=== PATIENT | female | born 1955 | race Caucasian/White ===

== ENCOUNTER → 2018-05-04 07:09 | Outpatient (CLI) | payer OTHER, SELFPAY ==
--- NOTE | 2018-05-04 07:15 | BI_ITS ---
MAMMOGRAPHY - BILATERAL SCREENING REASON FOR EXAM: Female, 62 years old. Routine annual screening examination. PERTINENT HISTORY: Non-contributory. TECHNIQUE: Digital bilateral breast radha (3D mammographic acquisition) in the CC and MLO projections. 2-D mediolateral oblique (MLO) and craniocaudad (CC) views of both breasts were obtained. CAD: Full Field Digital Mammography with Computer Added Detection was performed. COMPARISON: No comparison mammograms available at this time. If any prior films become available, an addendum to this report can be generated. FINDINGS: Breast Composition: There are scattered areas of fibroglandular density. There are no dominant masses or suspicious calcifications. Scattered diffuse bilateral microcalcifications more prominent in the left axillary region. Several of the calcifications are dermal in nature. No other significant abnormalities are identified. BI/SCREENING MAMM (CAD), BILAT IMPRESSION: Stable bilateral screening mammogram. Yearly follow-up mammogram recommended. (A) ASSESSMENT CATEGORY: BIRADS Category 2: Benign. A letter regarding these results will be sent to the patient by the facility within 30 days. Approximately 10% of breast cancers are not detected by mammography. A normal mammogram should not delay biopsy of a clinically suspicious abnormality. [id number] Electronically Signed: Jacques Min MD at 9:21 EST Tel [phone], Service support ,
--- OUTSIDE RECORDS SUMMARY | 2018-06-29 11:47 | XMS RPT_ITS ---
:1955 Author Organization [facility] Care Team Providers Name Role Phone Toribio Chapa Attending Unavailable Toribio Chapa Primary Care Unavailable Toribio Chapa Referring Unavailable PROBLEMS PROBLEMS No Problem Records FoundPROCEDURES PROCEDURES No Procedure Records FoundRESULTS RESULTS SCREENING MAMM (CAD), Observed: 05/04/2018 Status: F Source: [place] 7:15 AM [facility] [place] [facility] Imaging Services [address] [place] [address] SCREENING MAMM (CAD), BILAT MR#: [id number] Acct: [id number] Name: SWAPNIL MENJIVAR Rep #: [id number] : 1955 F 62 From: Jacques Min MD PCP: Toribio Chapa MD Status: REG CLI Study: SCREENING MAMM (CAD), BILAT Date of Exam: 05/04/18 Exam# [id number] Ordering Dr: Greg Chapa MD MAMMOGRAPHY - BILATERAL SCREENING REASON FOR EXAM: Female, 62 years old. Routine annual screening examination. PERTINENT HISTORY: Non-contributory. TECHNIQUE: Digital bilateral breast radha (3D mammographic acquisition) in the CC and MLO projections. 2-D mediolateral oblique (MLO) and craniocaudad (CC) views of both breasts were obtained. CAD: Full Field Digital Mammography with Computer Added Detection was performed. COMPARISON: No comparison mammograms available at this time. If any prior films become available, an addendum to this report can be generated. FINDINGS: Breast Composition: There are scattered areas of fibroglandular density. There are no dominant masses or suspicious calcifications. Scattered diffuse bilateral microcalcifications more prominent in the left axillary region. Several of the calcifications are dermal in nature. No other significant abnormalities are identified. BI/SCREENING MAMM (CAD), BILAT IMPRESSION: Stable bilateral screening mammogram. Yearly follow-up mammogram recommended. (A) ASSESSMENT CATEGORY: BIRADS Category 2: Benign. A letter regarding these results will be sent to the patient by the facility within 30 days. Approximately 10% of breast cancers are not detected by mammography. A normal mammogram should not delay biopsy of a clinically suspicious abnormality. 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 ALLERGIES ALLERGIES No Allergies Records FoundENCOUNTERS ENCOUNTERS ADMIT/DISCHARGE ACCOUNT ADMITTING ENCOUNTER LOCATION SOURCE NUMBER CLASS 05/04/2018 [id number] Ambulatory Gurwinder Lindsay[address] ing:OPBI Repository PAYERS PAYERS ENCOUNTER GUARANTOR PAYER SUBSCRIBER SOURCE 05/04/2018 [facility] [facility] Insurance:MEDICAL MILLERDOB: [address] [id number] [address]Tmr: Number: Repository [id number] (HP) Date:[id number] [address] [place] [id number]: 05/04/2018 [facility]:SELF PAY [facility] Number: Effective Repository Date:2018-03-24
== END ==
PROVIDERS: Family Provider Family Medicine; PCP Family Medicine; Referring Provider Family Medicine; Visit Provider Family Medicine
DX: Z12.31 Encounter for screening mammogram for malignant neoplasm of breast (principal)
CPT/HCPCS: 77063; 77067

== ENCOUNTER → 2019-01-19 05:59 | Outpatient (CLI) | payer MEDICARE, SELFPAY ==
--- NOTE | 2019-01-23 11:25 | STRESSREP_ITS ---
Stress Test Report Date: 01/23/2019 Procedure: Pharmacologic stress nuclear imaging study Indications: Chest pain Consent: Per the patient Procedure: The patient underwent pharmacologic (Regadenoson) evaluation with a peak heart rate of 94 beats per minute (60 %predicted maximal heart rate) and a peak blood pressure of 204/112 mmHg. The baseline ECG demonstrated normal sinus rhythm, no significant ST-T changes. EKG during lexiscan infusion revealed significant change from baseline. EKG post infusion revealed no significant change from baseline [There were no cardiac dysrhythmias pretest, during pharmacologic infusion, or recovery]. [There was no complaint of chest discomfort during pharmacologic infusion or recovery]. The examination was discontinued secondary to completion of protocol. Impression: 1. Lexiscan stress test test is negative for Lexiscan infusion induced EKG changes of ischemia. 2. Lexiscan stress test test is negative for Lexiscan infusion induced chest pain. 3. Results of the nuclear portion of the test is as below Myocardial perfusion imaging study: Technique: The patient was injected with 11.4 millicuries of technetium 99m Cardiolite and subsequently rest SPECT Cardiolite nuclear imaging was obtained in the horizontal long, vertical long, and short axis views. The patient underwent pharmacologic (Regadenoson) evaluation. Please see above for details. The patient was injected with 32.9 millicuries of technetium 99m Cardiolite and subsequently stress SPECT Cardiolite nuclear imaging was obtained in the horizontal long, vertical long, and short axis views. A gated Cardiolite study at peak stress was obtained. Interpretation: Rest and stress SPECT Cardiolite nuclear imaging status post realignment, normalization, and attenuation correction demonstrate overall normal myocardial radioisotope uptake. Gated images reveal no significant regional wall motion abnormalities. The reported LVEF is greater than 70 %. Impression: 1. There is [no evidence of significant ischemia or infarction]. 2. Estimated ejection fraction is greater than 70%. This note was generated with [employer] software. It may contain incorrect words, spelling, and punctuation that were not noted in checking the note before signing.
== END ==
PROVIDERS: Family Provider Family Medicine; PCP Family Medicine; Referring Provider Family Medicine; Visit Provider Family Medicine
DX: Z13.6 Encounter for screening for cardiovascular disorders (principal); I10 Essential (primary) hypertension; R07.9 Chest pain, unspecified
CPT/HCPCS: 78452; 93017; A9500; A4216; J2785

== ENCOUNTER → 2019-01-23 06:57 | Outpatient (CLI) | payer MEDICARE, SELFPAY ==
--- NOTE | 2019-01-23 07:12 | AAAS_ITS ---
Reason For Study: Screening Aorta Measurements Aorta Doppler Measurements Proximal aorta measures1.35 x 1.40cm. in cross- Peak systolic flow velocities within the proximal sectional axis. aorta measure 90.6 cm/sec. Proximal aorta measures1.42cm. in longitudinal Peak systolic flow velocities within the mid aorta axis. measure 101.5 cm/sec. Mid aorta measures1.37 x 1.34cm. in cross- Peak systolic flow velocities within the distal sectional axis. aorta measure 81.5 cm/sec. Mid aorta measures1.43cm. in longitudinal axis. Distal aorta measures1.37 x 1.40cm. in cross- sectional axis. Distal aorta measures1.36cm. in longitudinal axis. Left Iliac Artery Left iliac artery measures 0.91 x 0.95 cm. in the cross-sectional axis. Left iliac artery measures 0.94 cm. in the longitudinal axis. Peak systolic velocity in the left iliac artery measures 99.7 cm/sec. Right Iliac Artery Right iliac artery measures 0.89 x 0.90 cm. in the cross-sectional axis. Right iliac artery measures 0.93 cm. in the longitudinal axis. Peak systolic velocity in the right iliac artery measures 116.1 cm/sec. Procedure Aorta IVC Iliac vasculature or bypass grafts 22701. Exam performed in department. Interpretation Summary The intra-abdominal aorta is of normal caliber, without evidence of aneurysmal dilatation. The iliac arteries are also of normal size bilaterally. The intra-abdominal aorta and iliac arteries are patent, demonstrating pulsatile arterial flow and normal peak systolic velocities. Ordering Physician: Greg Chapa Referring Physician: Greg Chapa Performed By: Kirsten Diaz RVCharles
[2019-01-23 07:17] LABS: Absolute Neutrophil Count 4.3 X10^3/uL (2.0-7.7); Basophil# 0.03 X10^3/uL; Basophil% 0.4 % (0-1); Eosinophil# 0.13 X10^3/uL; Eosinophils% 1.9 % (0-5); Hematocrit 41.8 % (37-47); Hemoglobin 13.7 g/dL (12.0-15.0); Lymphocyte % 25.4 % (19-41); Mean Corp Hgb Conc 32.8 g/dL (32-36); Mean Corpuscular Hgb 31.4 pg (27.0-32.0); Mean Corpuscular Volume 95.7 fL (81-99); Monocyte# 0.46 X10^3/uL; Monocyte% 6.9 % (0-10); NRBC Flagged by Analyzer 0 % (0-5); Neutrophil # 4.33 X10^3/uL (2.7-7.7); Platelet Count 255 K/mm3 (150-450); RBC Distribution Width CV 12.8 % (11.6-14.6); RBC Distribution Width SD 45.1 fl (35.1-43.9); Red Blood Count 4.37 M/mm3 (4.2-5.4); White Blood Count 6.7 K/mm3 (4.4-11.0)
[2019-01-23 07:49] LABS: ALB/GLOB Ratio 1.2 RATIO (0.9-2.4); AST(SGOT) 20 U/L (15-37); Alanine Aminotransfer ALT/SGPT 20 U/L (13-56); Albumin, Serum 3.7 g/dL (3.2-5.0); Alkaline Phosphatase 118 U/L (45-117); Anion Gap 6 (5-15); BUN 16 mg/dL (7-18); BUN/Creat Ratio 16.8 RATIO (10-20); Calcium,Total 9.1 mg/dL (8.5-10.1); Chloride 109 mmol/L (98-107); Cholesterol 240 mg/dL (200); Creatinine, Serum 0.95 mg/dL (0.55-1.02); EST Glomerular Filtration Rate 63 mL/min (>60); Est Glom Filt Rate - Afr Amer 76 mL/min (>60); Globulin 3.2 g/dL (2.2-4.2); Glucose 91 mg/dL (74-106); High Density Lipoprotein 63 mg/dL; Magnesium 2.3 mg/dL (1.6-2.6); Potassium 4.1 mmol/L (3.5-5.1); Protein, Total 6.9 g/dL (6.4-8.2); Sodium Level 142 mmol/L (136-145); Thyroid Stim Hormone (TSH) 1.77 uIU/mL (0.358-3.74); Triglycerides 125 mg/dL; Very Low Density Lipoprotein 25 mg/dL (5-40)
[2019-01-23 07:58] LABS: Microalbumin:Creatinine Ratio 34.5 mg/g CRE (<30 mg/g CRE)
== END ==
PROVIDERS: Family Provider Family Medicine; PCP Family Medicine; Referring Provider Family Medicine; Visit Provider Family Medicine
DX: R07.9 Chest pain, unspecified (principal); I10 Essential (primary) hypertension; T67.5XXA Heat exhaustion, unspecified, initial encounter; Z13.6 Encounter for screening for cardiovascular disorders
CPT/HCPCS: 36415; 76706; 80053; 80061; 82043; 82570; 83735; 84443; 85025

== ENCOUNTER → 2019-02-15 13:53 | Outpatient (CLI) | payer MEDICARE, SELFPAY ==
[2019-02-06 10:42] VITALS: BMI 33.0
[2019-02-15 16:13] LABS: Anion Gap 7 (5-15); BUN 15 mg/dL (7-18); BUN/Creat Ratio 13.8 RATIO (10-20); Calcium,Total 8.9 mg/dL (8.5-10.1); Chloride 105 mmol/L (98-107); Creatinine, Serum 1.09 mg/dL (0.55-1.02); EST Glomerular Filtration Rate 54 mL/min (>60); Est Glom Filt Rate - Afr Amer 65 mL/min (>60); Glucose 149 mg/dL (74-106); Potassium 3.7 mmol/L (3.5-5.1); Sodium Level 140 mmol/L (136-145)
== END ==
PROVIDERS: Family Provider Family Medicine; PCP Family Medicine; Referring Provider Family Medicine; Visit Provider Family Medicine
DX: I10 Essential (primary) hypertension (principal)
CPT/HCPCS: 36415; 80048

== ENCOUNTER → 2020-02-14 08:05 | Outpatient (CLI) | payer MEDICARE, SELFPAY ==
[2019-02-06 10:42] VITALS: BMI 33.0
[2020-02-14 10:10] LABS: Anion Gap 5 (5-15); BUN 19 mg/dL (7-18); BUN/Creat Ratio 22.2 RATIO (10-20); Calcium,Total 8.6 mg/dL (8.5-10.1); Chloride 107 mmol/L (98-107); Cholesterol 243 mg/dL (200); Creatinine, Serum 0.86 mg/dL (0.55-1.02); EST Glomerular Filtration Rate 71 mL/min (>60); Est Glom Filt Rate - Afr Amer 85 mL/min (>60); Glucose 96 mg/dL (74-106); High Density Lipoprotein 71 mg/dL; Potassium 3.7 mmol/L (3.5-5.1); Sodium Level 139 mmol/L (136-145); Triglycerides 106 mg/dL; Very Low Density Lipoprotein 21 mg/dL (5-40)
== END ==
PROVIDERS: PCP Family Medicine; Referring Provider Family Medicine; Visit Provider Family Medicine
DX: I10 Essential (primary) hypertension (principal); E78.5 Hyperlipidemia, unspecified
CPT/HCPCS: 36415; 80048; 80061

== ENCOUNTER → 2020-04-03 10:19 | Outpatient (CLI) | payer MEDICARE, SELFPAY ==
[2019-02-06 10:42] VITALS: BMI 33.0
--- NOTE | 2020-04-03 10:21 | BI_ITS ---
MAMMOGRAPHY - BILATERAL SCREENING REASON FOR EXAM: Female, 64 years old. Routine annual screening examination. PERTINENT HISTORY: Non-contributory. Remote right excisional breast biopsy. TECHNIQUE: Digital bilateral breast rasheed (3D mammographic acquisition) in the CC and MLO projections. 2-D mediolateral oblique (MLO) and craniocaudad (CC) views of both breasts were obtained. CAD: Full Field Digital Mammography with Computer Added Detection was performed. COMPARISON: Comparison is made with prior study dated 05/04/2018. FINDINGS: Breast Composition: There are scattered areas of fibroglandular density. There are no dominant masses or suspicious calcifications. Once again, there is evidence of scattered diffuse bilateral microcalcifications more prominent in the left axillary region. I suspect the majority of the calcifications to be dermal in nature. No other significant abnormalities are identified. There has been no significant change since the prior study. BI/SCREEN MAMM (CAD) W/RASHEED BILAT IMPRESSION: Stable bilateral screening mammogram. Yearly follow-up mammogram recommended. (A) ASSESSMENT CATEGORY: BIRADS Category 2: Benign. A letter regarding these results will be sent to the patient by the facility within 30 days. Approximately 10% of breast cancers are not detected by mammography. A normal mammogram should not delay biopsy of a clinically suspicious abnormality. [id number] Electronically Signed: Jacques Min, at 12:22 EDT , Service support ,
--- NOTE | 2020-04-03 10:25 | BD_ITS ---
STUDY: DUAL ENERGY X-RAY ABSORPTIOMETRY / DXA REASON FOR EXAM: Female, 64 years old. 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 COMPARISON: None. FINDINGS: Lumbar Spine (L1-L4): g/cm2 (0.899) / T-score (-2.3) / Z-score (-0.7) Findings are suggestive of osteopenia with a high fracture risk. Left Femur Total: g/cm2 (0.900) / T-score (-0.9) / Z-score (0.4) Left Femoral Neck: g/cm2 (0.864) / T-score (-1.3) / Z-score (0.3) Right Femur Total: g/cm2 (0.910) / T-score (-0.8) / Z-score (0.5) Right Femoral Neck: g/cm2 (0.872) / T-score (-1.2) / Z-score (0.3) BD/Dexa Bone Density Study IMPRESSION: The patient is considered osteopenic as outlined below according to World Michael Organization (WHO) criteria with a high fracture risk. Reference Information: The T-score is the number of standard deviations above or below the standard which is normal for young adults at their peak bone mineral density. The World Health Organization (WHO) interprets the T-scores as follows: Above -1 Normal bone density Between -1 and -2.5 Osteopenia Equal to / or below -2.5 Osteoporosis As a practical clinical guideline, osteopenia may be graded as follows: Mild -1 through -1.5 Moderate -1.6 through -2.0 Severe -2.1 through -2.4 The Z-score is the number of standard deviations above or below age-matched controls. A Z-score of less than -1.5 would be considered abnormal. References: 1. NIH Osteoporosis and Related Bone Diseases www osteo.org 2. International Society for Clinical Densitometry www iscd.org 3. National Osteoporosis Foundation www nof.org Electronically Signed: Jacques Min, at 15:54 EDT , Service support ,
== END ==
PROVIDERS: PCP Family Medicine; Referring Provider Family Medicine; Visit Provider Family Medicine
DX: Z13.820 Encounter for screening for osteoporosis (principal); Z78.0 Asymptomatic menopausal state; Z12.31 Encounter for screening mammogram for malignant neoplasm of breast
CPT/HCPCS: 77063; 77067; 77080

== ENCOUNTER → 2021-02-26 08:24 | Outpatient (CLI) | payer MEDICARE, SELFPAY ==
[2021-02-26 10:28] LABS: Anion Gap 6 (5-15); BUN 17 mg/dL (7-18); BUN/Creat Ratio 22.8 RATIO (10-20); Calcium,Total 8.8 mg/dL (8.5-10.1); Chloride 107 mmol/L (98-107); Cholesterol 237 mg/dL (200); Creatinine, Serum 0.75 mg/dL (0.55-1.02); EST Glomerular Filtration Rate 82 mL/min (>60); Est Glom Filt Rate - Afr Amer 100 mL/min (>60); Glucose 100 mg/dL (74-106); High Density Lipoprotein 71 mg/dL; Potassium 3.5 mmol/L (3.5-5.1); Sodium Level 140 mmol/L (136-145); Triglycerides 101 mg/dL; Very Low Density Lipoprotein 20 mg/dL (5-40)
[2021-02-26 11:05] LABS: Hepatitis C Antibody Non-Reactive (Nonreactive)
== END ==
PROVIDERS: PCP Family Medicine; Referring Provider Family Medicine; Visit Provider Family Medicine
DX: I10 Essential (primary) hypertension (principal)
CPT/HCPCS: 36415; 80048; 80061; 86803

== ENCOUNTER 2021-03-10 16:06 | Emergency (ER) | payer MEDICARE, SELFPAY ==
[2021-03-10] VITALS (8 sets, daily range): BP systolic 120–145; BP diastolic 71–97; PULSE 68–124; RESP 14–25; TEMP 37.8; O2SAT 92–97; BMI 32.9
--- NOTE | 2021-03-10 16:23 | EKG12_ITS ---
Test Reason : SYNCOPE Blood Pressure : / mmHG Vent. Rate : 088 BPM Atrial Rate : 088 BPM P-R Int : 130 ms QRS Dur : 080 ms QT Int : 350 ms P-R-T Axes : 028 -29 -02 degrees QTc Int : 423 ms Normal sinus rhythm Anterior infarct , age undetermined , cannot be excluded Nonspecific T wave abnormality Abnormal ECG Confirmed by YANIRA QUINN, CAMILLE ([id number]), technical editor DL MARTINO ([id number]) on 03/11/2021 8:40:48 AM Referred By: LENNOX Confirmed By:CAMILLE DOYLE MD
[2021-03-10 16:48] LABS: Absolute Lymphocyte Count 0.49 X10^3/uL (0.83-4.51); Absolute Neutrophil Count 4.2 X10^3/uL (2.0-7.7); Basophil# 0.01 X10^3/uL; Basophil% 0.2 % (0-1); Hematocrit 43.3 % (37-47); Hemoglobin 14.7 g/dL (12.0-15.0); Lymphocyte # 0.49 X10^3/ul (0.83-4.51); Lymphocyte % 9.5 % (19-41); Mean Corp Hgb Conc 33.9 g/dL (32-36); Mean Corpuscular Hgb 31.6 pg (27.0-32.0); Mean Corpuscular Volume 93.1 fL (81-99); Monocyte% 7.8 % (0-10); NRBC Flagged by Analyzer 0 % (0-5); Neutrophil # 4.24 X10^3/uL (2.7-7.7); Neutrophil % 82.3 % (47-70); POSITIVE DIFFERENTIAL YES; Platelet Count 160 K/mm3 (150-450); RBC Distribution Width CV 12.5 % (11.6-14.6); RBC Distribution Width SD 42.9 fl (35.1-43.9); Red Blood Count 4.65 M/mm3 (4.2-5.4); White Blood Count 5.2 K/mm3 (4.4-11.0)
[2021-03-10 16:49] LABS: Differential Indicated SCAN CRITERIA MET
[2021-03-10 17:03] LABS: Anion Gap 9 (5-15); BUN 19 mg/dL (7-18); BUN/Creat Ratio 17.3 RATIO (10-20); Calcium,Total 8.6 mg/dL (8.5-10.1); Chloride 95 mmol/L (98-107); EST Glomerular Filtration Rate 53 mL/min (>60); Est Glom Filt Rate - Afr Amer 64 mL/min (>60); Estimated Creatinine Clearance 39.25 ml/min; Glucose 124 mg/dL (74-106); Potassium 3.3 mmol/L (3.5-5.1); Sodium Level 130 mmol/L (136-145)
[2021-03-10 17:33] LABS: Platelet Estimate ADEQUATE (ADEQ); Red Cell Morphology NORM C+C NORMAL (NORM C&C)
--- NOTE | 2021-03-10 19:35 | RAD_ITS ---
INDICATION: covid EXAMINATION/TECHNIQUE: X-RAY - XR Chest 1 View COMPARISON: None. FINDINGS: LINES/DEVICES: None. LUNGS: Asymmetric elevation right hemidiaphragm appears to be associated with some mild overlying atelectasis. Lungs otherwise clear with no abnormal interstitial pattern, airspace opacity, pleural effusion or pneumothorax. MEDIASTINUM AND CARDIOVASCULAR STRUCTURES: Normal size and contour of the cardiomediastinal silhouette. No evidence of pulmonary vascular congestion. BONES AND SOFT TISSUES: Asymmetric degenerative changes right glenohumeral joint compared to the left. RAD/Chest 1 View (Portable) IMPRESSION: 1. No radiographic evidence of acute cardiopulmonary disease. Electronically Signed: Crow Fish DO at 20:54 EDT Tel , Service support ,
--- NOTE | 2021-03-10 19:36 | EDS_ITS ---
HPI History of Present Illness Chief Complaint: Syncope Detail of Chief Complaint: URI symptoms Informant: patient and family Onset/Context/Timing Onset: Days Context: Gradual Onset Timing: Intermittent Current Severity: Mild Maximum Severity: Mild Narrative Narrative: Six 5-year-old female history of hypertension. Sees the last 5 days since she has had headaches generalized weakness nausea without any significant vomiting. Denies diarrhea. Denies fever. States she feels so weak she just passes out usually only last seconds she denies any injuries with these episodes. She denies any chest pain or significant shortness of breath. She states she is so weak. Prior similar symptoms: No Recent Illness/Hospitalization: No PFSH PFSH Medical History Chronic neck and back pain Frequent headaches Hypertension Home Medications lisinopril 40 mg tablet 40 mg PO DAILY 02/06/19 [History Last Taken Unknown] water pill PO 02/06/19 [History Last Taken Unknown] dexamethasone [Decadron] 6 mg PO DAILY 10 Days #10 tab 03/10/21 [Rx Last Taken Unknown] dexamethasone [Decadron] 6 mg PO DAILY 10 Days #10 tab 03/10/21 [Rx Last Taken Unknown] hydrochlorothiazide 25 mg PO DAILY 03/10/21 [History Last Taken Unknown] Allergy/AdvReac Type Severity Reaction Status Date / Time No Known Allergies Allergy Verified 03/10/21 16:07 Family History Other Diabetes Heart disease Hypertension Surgical History History of hysterectomy Social History Smoking Status: Never smoker alcohol intake: never ROS ROS ED ROS Narrative Cough. Weakness. Review of Systems ROS Unobtainable: Denies due to encephalopathy Constitutional Constitutional ED: Denies chills or fever(s) Eyes Eyes: Denies change in vision ENT ENT ED: Denies ear pain Cardiovascular Cardiovascular: Denies chest pain Respiratory/Chest Respiratory/Chest: Reports cough; Denies dyspnea Gastrointestinal Gastrointestinal: Reports nausea; Denies abdominal pain or diarrhea Genitourinary Genitourinary ED: Denies dysuria Musculoskeletal Musculoskeletal: Denies myalgias Integumentary Denies rash Neurologic Neurologic: Reports headache(s) Psychiatric Psychiatric: Denies depression Endocrine Endocrinology: Denies polyuria Allergic/Immunologic Allergic/Immunologic ED: Denies urticaria EXAM Physical Exam Narrative Exam Narrative: Six 5-year-old female no acute distress. Vital signs are stable she has a low-grade fever of 100. She does not look septic or toxic. Pulse ox 94% on room air no signs hypoxia. HEENT exam unremarkable. Moist remembers. Neck nontender no JVD. Lungs clear to auscultation bilaterally. Heart regular rhythm rate about 90 no murmur. Chest nontender. Abdomen soft nontender. Moving all 4 extremities. Calves nontender without edema or cords. Neurologically she is awake and alert with no focal motor deficits. Const Vital Signs: 03/10/21 16:07 03/10/21 18:04 03/10/21 18:06 Temperature 100.0 F H Temperature Source Temporal Pulse Rate 91 81 Pulse Rate [Lying] Pulse Rate [Sitting] Pulse Rate [Standing] Respiratory Rate 18 14 Respiratory Effort Normal Non-Labored Blood Pressure 120/71 132/84 H Blood Pressure [Lying] Blood Pressure [Sitting] Blood Pressure [Standing] Blood Pressure Mean 87 100 Blood Pressure Mean [Lying] Blood Pressure Mean [Sitting] Blood Pressure Mean [Standing] Pulse Ox 94 94 Oxygen Delivery Method Room Air Room Air Oxygen Flow Rate (L/min) 03/10/21 18:08 03/10/21 20:25 03/10/21 20:49 Temperature Temperature Source Pulse Rate 70 Pulse Rate [Lying] 124 H Pulse Rate [Sitting] 71 Pulse Rate [Standing] 81 Respiratory Rate 21 H Respiratory Effort Blood Pressure 126/74 H Blood Pressure [Lying] 143/97 H Blood Pressure [Sitting] 145/75 H Blood Pressure [Standing] 144/87 H Blood Pressure Mean 91 Blood Pressure Mean [Lying] 112 Blood Pressure Mean [Sitting] 98 Blood Pressure Mean [Standing] 106 Pulse Ox 93 92 93 Oxygen Delivery Method Room Air Nasal Cannula Nasal Cannula Oxygen Flow Rate (L/min) 2 03/10/21 20:55 03/10/21 22:07 03/10/21 22:25 Temperature Temperature Source Pulse Rate 68 73 Pulse Rate [Lying] Pulse Rate [Sitting] Pulse Rate [Standing] Respiratory Rate 25 H 16 Respiratory Effort Blood Pressure 131/75 H 131/75 H Blood Pressure [Lying] Blood Pressure [Sitting] Blood Pressure [Standing] Blood Pressure Mean 93 Blood Pressure Mean [Lying] Blood Pressure Mean [Sitting] Blood Pressure Mean [Standing] Pulse Ox 97 94 95 Oxygen Delivery Method Nasal Cannula Oxygen Flow Rate (L/min) 2 Positive well nourished and well developed; Negative for cachectic, contractures or unkempt General Appearance ED: well developed and NAD; Negative for unkempt, cachectic, contractures, cyanotic, diaphoretic or pallor Nutritional Appearance: Negative for cachectic HEENT Reports moist mucous membranes Negative for trauma or tenderness Eyes PERRL and EOMs intact bilaterally Neck no lymphadenopathy, supple and no JVD General: Negative for tenderness Chest Wall inspection of chest normal and palpation of chest normal Resp normal respiratory effort and clear to auscultation bilaterally Effort and Inspection: Negative for pain with movement Auscultation: Negative for rales, rhonchi or wheezes Cardio regular rate, regular rhythm, S1 normal heart sound, S2 normal heart sound and no murmurs GI normal to inspection, nondistended, normoactive bowel sounds, non-tender, non- distended and no masses Auscultation: normoactive bowel sounds Palpation: soft; Negative for tender or guarding Back/Spine no CVA tenderness General Back: Negative for CVA tenderness Extremity normal to inspection General Extremety ED: Negative for edema or tenderness General Extremity: Negative for edema Neuro oriented x3 and CN's II-XII intact bilaterally Sensorium / Orientation: alert; Negative for orientation impaired, lethargic or stuporous Motor Exam: strength 5/5 throughout Psych mental status grossly normal Appearance: Negative for unkempt Skin no rashes or lesions noted, no wounds and No skin turgor normal General Skin Exam: Negative for jaundice or pallor MDM MDM MDM Narrative Medical decision making narrative: 65-year-old female generalized weakness with syncopal episodes with URI symptoms. Treated with normal saline x1 L and Zofran for nausea. Screening labs and x-ray being obtained. Repeat exam patient is doing well at 10 PM skeletal being discharged home. I think her symptoms are secondary to kelechi Covid and she would be day 5. She will be referred to monoclonal antibody therapy. She will be started on Decadron. Lab Data Attestation: I reviewed the patient's lab results. Lab results narrative: CBC shows normal white count 5. Hemoglobin 14. Electrolytes sodium 130. Potassium 3.3. Gap 9 BUN 19 creatinine 1.1. Glucose 124. Rapid Covid antigen positive. Troponin normal 13. Labs: Laboratory Results - last 24 hr 03/10/21 03/10/21 03/10/21 16:40 16:40 16:40 WBC 5.2 RBC 4.65 Hgb 14.7 Hct 43.3 MCV 93.1 MCH 31.6 MCHC 33.9 RDW Std Deviation 42.9 RDW Coeff of Sheryl 12.5 Plt Count 160 MPV 10.0 Immature Gran % (Auto) 0.200 Neut % (Auto) 82.3 H Lymph % (Auto) 9.5 L Hamblen % (Auto) 7.8 Eos % (Auto) 0.0 Baso % (Auto) 0.2 Absolute Neuts (auto) 4.2 Absolute Lymphs (auto) 0.49 L Nucleated RBC % 0 Differential Comment Platelet Estimate ADEQUATE RBC Morphology NORM C+C Sodium 130 L Potassium 3.3 L Chloride 95 L Carbon Dioxide 26.0 Anion Gap 9 BUN 19 H Creatinine 1.10 H Estim Creat Clear Calc 39.25 Est GFR (MDRD) Af Amer 64 Est GFR (MDRD) Non-Af 53 L BUN/Creatinine Ratio 17.3 Glucose 124 H Calcium 8.6 Troponin I High Sens 13 Radiography Chest X-Ray - ED: 1 View, Read by ED Physician, Read by Radiologist, Normal, Heart, Lungs, Mediastinum, Bony Structures, No Acute Disease and Chronic Changes Diagnostic Testing: Radiology Impression Chest X-Ray 03/10/21 19:35 IMPRESSION: 1. No radiographic evidence of acute cardiopulmonary disease. Electronically Signed: Crow Fish DO at 20:54 EDT Tel , Service support , Rhythm Strip Rhythm Strip: Sinus Rhythm Rate: 88 Ectopy: None EKG Initial EKG: Attestation: I personally reviewed and interpreted this EKG as follows: Interpretation: Sinus Rhythm and No Acute Injury Pattern Comments: Normal sinus rhythm rate 88 no acute signs of MN or ischemia. Discharge Plan Triage Chief Complaint: Syncope ED Provider: Vinayak Mojica Dx/Rx/DC Orders Clinical Impression: COVID, Weakness Instructions: Human Coronaviruses Prescriptions: New dexamethasone [Decadron] 6 mg tablet 6 mg PO DAILY 10 Days Qty: 10 RF: 0 dexamethasone [Decadron] 6 mg tablet 6 mg PO DAILY 10 Days Qty: 10 RF: 0 No Action lisinopril 40 mg tablet 40 mg PO DAILY RF: 0 water pill PO RF: 0 hydrochlorothiazide 25 mg tablet 25 mg PO DAILY RF: 0 Other Ambulatory Orders: COVID Outpatient Monoclonal Antibody Referral (Routine) Timeframe: 1 Day Facility: [facility] - Location: [facility] Ordered By: Dr. Vinayak Mojica Primary Care Provider: Greg Chapa Referrals: Greg Chapa MD [Primary Care Provider] - 1 Week if not improving Activity Restrictions/Additional Instructions: Plenty of fluids and rest. The monoclonal antibody center should call you tomorrow to discuss that treatment option. Decadron daily for the at least the next 7 days. Hold your blood pressure medication if your pressure is running below 130 systolic. The higher number. Follow-up with your doctor if not improving return if feeling a lot worse. Disposition Disposition: Home, Self Care Discharge Date/Time: 03/10/21 22:31
[2021-03-10] MEDS: Ondansetron 4 MG/2 ML Vial IV (19:40)
[2021-03-10] MEDS: 0.9% Normal Saline 1,000 ML 999 ML IV (19:40)
[2021-03-10 20:07] LABS: Troponin-I HS 13 pg/mL (3.0-54.0)
[2021-03-10] MEDS: dexAMETHasone 4 MG Tablet 6 MG PO (22:24)
== END 2021-03-10 22:31 | disposition home or self-care (01) ==
PROVIDERS: Emergency Provider Emergency Medicine; PCP Family Medicine
DX: U07.1 COVID-19 (principal); R53.1 Weakness; I10 Essential (primary) hypertension; Z79.899 Other long term (current) drug therapy
CPT/HCPCS: 71045; 80048; 84484; 85025; 87426; 93005; 96374; 99284; J7030; J2405

== ENCOUNTER 2021-03-11 16:07 | Outpatient (CLI) | payer MEDICARE, SELFPAY ==
[2021-03-11] MEDS: 0.9% Saline Lock 10 ML Syringe IV (16:25)
[2021-03-11 16:27] VITALS: BP 143/83; PULSE 71; RESP 16; TEMP 37.1; O2SAT 94; BMI 32.9
[2021-03-11 17:14] VITALS: BP 131/72; PULSE 66; RESP 16; TEMP 36.6; O2SAT 96
[2021-03-11 18:14] VITALS: BP 134/76; PULSE 66; RESP 16; TEMP 36.7; O2SAT 95
== END 2021-03-11 18:22 | disposition home or self-care (01) ==
LOC: MS3OUT 16:07 → MS3 16:08
PROVIDERS: PCP Family Medicine; Referring Provider Nurse Practitioner Adult Health; Visit Provider Nurse Practitioner Adult Health
DX: Z23 Encounter for immunization (principal); U07.1 COVID-19
CPT/HCPCS: J7050; M0243; A4216; Q0244

== ENCOUNTER 2021-07-15 08:14 | Day surgery (SDC) | payer MEDICARE, SELFPAY ==
[2021-07-15 08:35] VITALS: BP 146/85; PULSE 72; RESP 18; TEMP 36.2; O2SAT 100; BMI 34.3
[2021-07-15] MEDS: Lactated Ringers 1,000 ML 15 ML IV (08:50)
--- NOTE | 2021-07-15 09:04 | HP.PCM_ITS ---
HPI - General HPI Narrative SWAPNIL MENJIVAR, is a 65 F who presents for screening colonoscopy. The patient's last colonoscopy was 10 years ago and there were polyps present. Patient denies any abdominal pain or blood in her stool. Patient denies any family history of colon cancer. [facility] Medical History (Updated 07/08/21 @ 11:17 by Khalida Garcia) Arthritis Back pain Chronic neck and back pain Frequent headaches Heartburn Hypertension Migraine headache Non-smoker Restless legs Wears glasses Home Medications lisinopril 40 mg tablet 40 mg PO DAILY 02/06/19 [History Last Taken 07/15/21 05:00] hydrochlorothiazide 25 mg PO DAILY 03/10/21 [History Last Taken Unknown] Allergy/AdvReac Type Severity Reaction Status Date / Time influenza virus vaccine ts AdvReac Swelling Verified 07/15/21 08:33 [id number] (36 mos,up) [From Fluarix] Family History Other Diabetes Heart disease Hypertension Surgical History (Updated 07/08/21 @ 11:13 by Khalida Garcia) History of hysterectomy History of lymph node excision History of repair of right rotator cuff Social History Smoking Status: Never smoker alcohol intake: never Past Medical/Surgical History Planned Operation Planned Operative Procedure/s: COLONOSCOPY Previous Hospitalizations/Surgeries HX Hospitalizations: No HX of Surgeries: hysterectomy lymph node removal from neck rotator cuff surgery Any Problems With Anesthesia: No You/Your Family Experience Fever (Hyperthermia) With Anes: No Cholinesterase deficiency: No Cardiovascular Hx Hypertension: Yes Respiratory Hx Sleep Apnea: No Hx Respiratory Tract Infection/Cold (presently): No Do You Snore Loudly (louder than talking or can be heard): No Do You Often Feel Tired/ Fatigued/ Sleepy Dring Daytime?: No Has Anyone Observed You Stop Breathing During Sleep?: No Result (for STOP score): Negative Smoking Status: Never smoker Neurological Hx Seizures: No Does patient have nerve stimulator: No Reproduction : No Genitourinary Hx Renal Disease: No Endocrine Hx Diabetes: No Miscellaneous Hx Cancer: No Recent Exposure to Contagious Disease: No Allergies influenza virus vaccine ts [id number] (36 mos,up) [From Fluarix] Adverse Reaction (Verified 07/15/21 08:33) Swelling Discharge Is Pt Admitted From a Detention, or a Alf: No Who Could Help: DAUGHTER After D/C, Where Do you Plan to Go: Return Home Vital Signs Vital Signs Vital Signs: 07/15/21 08:34 07/15/21 08:35 Temperature 97.1 F L Temperature Source Temporal Pulse Rate 72 Respiratory Rate 18 Respiratory Pattern Normal Blood Pressure 146/85 H Blood Pressure Mean 105 Blood Pressure Source Monitor Blood Pressure Position Semi-Fowlers Blood Pressure Location Left Arm Pulse Ox 100 Oxygen Delivery Method Room Air Weight Weight: 187 lb 12.8 oz Body Mass Index (BMI) 34.3 Physical Exam Const alert and oriented x3 Resp normal respiratory effort and normal air movement Cardio regular rate and regular rhythm GI soft to palpation, non-tender and non-distended Assessment & Plan Assessment/Plan (1) Encounter for screening for malignant neoplasm of colon: PLAN: I explained endoscopy in detail to the patient. I explained the risks including but not limited to stroke or heart attack with anesthesia, perforation of the GI tract, bleeding, infection. I explained that any of these could necessitate further emergency surgery. The patient understands and all questions were answered sufficiently. The patient wishes to proceed with procedure. Amanuel Mckeon MD Pager: [facility] [address] [place] [address] [address] [place] [address] Office: Surgery Risks - Colonoscopy Risks Include but are not Limited To: Risks include but are not limited to: Bleeding, perforation requiring further surgery, inability to complete colonoscopy requiring barium enema.
--- NOTE | 2021-07-15 09:30 | COLBX_PTH ---
PATIENT: SWAPNIL MENJIVAR LOC: EN U#:[id number] AGE/SX: 65/F ROOM: RE07/15/[address]: Dr. Amanuel Mckeon MD : 1955 BED: DIS: 07/15/2021 SPEC #: [id number] RECD: 07/15/21 10:43 STATUS: GIANCARLO LINETTE #: [id number] JAYA: 07/15/21 09:[address]: Amnauel Mckeon DEPT: SURGICAL PATHOLOGY RECD BY: Dorys Cortes ENTERED: 07/15/21 11:59 SP TYPE: COLON BX OTHR DR: Dr. Toribio Chapa MD Tissues: Sigmoid colon biopsy Procedures: Surgery Specimen Level IV HEADER OPERATION: Colonoscopy ? open access (MAC) polypectomy PRE-OP DIAGNOSIS: Screening TISSUE SUBMITTED: Sigmoid polyp MICROSCOPIC DIAGNOSIS Sigmoid polyp, polypectomy: Fragments of tubular adenoma. SJ:louis 07/16/2021 MICROSCOPIC DESCRIPTION Slides are reviewed. GROSS DESCRIPTION Received in fixative is one container labeled with the patient's name and designated sigmoid polyp. The specimen consists of two irregular fragments of light mane soft tissue that in aggregate measure 0.6 x 0.4 x 0.2 cm. The specimen is totally submitted in one cassette. / SJ:louis 07/15/2021 TC:1 CPT: 96557
--- NOTE | 2021-07-15 09:53 | OP.COLON_ITS ---
Patient Name: Tiki Manley Procedure Date: 07/15/2021 9:35 AM Date of : 1955 Age: 65 Procedure: Colonoscopy Indications: Screening for colorectal malignant neoplasm Providers: Amanuel Mckeon MD Referring MD: Amanuel Mckeon MD Medicines: Monitored Anesthesia Care Patient Profile: This is a 65 year old female. Refer to note in patient chart for documentation of history and physical. Last Colonoscopy: 10 years ago. Complications: No immediate complications. Procedure: Pre-Anesthesia Assessment: - Prior to the procedure, a History and Physical was performed, and patient medications and allergies were reviewed. The patient's tolerance of previous anesthesia was also reviewed. The risks and benefits of the procedure and the sedation options and risks were discussed with the patient. All questions were answered, and informed consent was obtained. Prior Anticoagulants: The patient has taken no previous anticoagulant or antiplatelet agents. After reviewing the risks and benefits, the patient was deemed in satisfactory condition to undergo the procedure. After I obtained informed consent, the scope was passed under direct vision. Throughout the procedure, the patient's blood pressure, pulse, and oxygen saturations were monitored continuously. The pediatric colonoscope was introduced through the anus and advanced to the cecum, identified by appendiceal orifice and ileocecal valve. The colonoscopy was performed without difficulty. The patient tolerated the procedure well. The quality of the bowel preparation was good. Scope In: 9:39:34 AM Scope Withdrawal Time 0 hours 8 minutes 6 seconds Scope Out: 9:50:05 AM Total Procedure Duration Time 0 hours 10 minutes 31 seconds Findings: A polyp was found in the sigmoid colon. The polyp was removed with a hot snare. Resection and retrieval were complete. The entire examined colon appeared normal on direct and retroflexion views. Impression: - One polyp in the sigmoid colon, removed with a hot snare. Resected and retrieved. - The entire examined colon is normal on direct and retroflexion views. Recommendation: - Discharge patient to home. - Resume previous diet. - Continue present medications. - Await pathology results. - Repeat colonoscopy in 5 years for surveillance. Procedure Code(s): --- Professional --- 12142, 33, Colonoscopy, flexible; with removal of tumor(s), polyp(s), or other lesion(s) by snare technique Diagnosis Code(s): --- Professional --- Z12.11, Encounter for screening for malignant neoplasm of colon D12.5, Benign neoplasm of sigmoid colon CPT copyright 2017 [employer]. All rights reserved. The codes documented in this report are preliminary and upon medical record coder review may be revised to meet current compliance requirements. Amanuel Mckeon MD 07/15/2021 9:53:06 AM This report has been signed electronically. Number of Addenda: 0 Note Initiated On: 07/15/2021 9:35 AM
--- NOTE | 2021-07-15 09:54 | OP.CCLET_ITS ---
07/15/2021 Greg Chapa [address] [place] [address] Re : Colonoscopy procedure for Tiki Manley Dear Dr. Chapa This procedure was performed on Thursday, July 15, 2021. My impressions and recommendations are as follows: Impressions : - One polyp in the sigmoid colon, removed with a hot snare. Resected and retrieved. - The entire examined colon is normal on direct and retroflexion views. Recommendations : - Discharge patient to home. - Resume previous diet. - Continue present medications. - Await pathology results. - Repeat colonoscopy in 5 years for surveillance. My findings are described in the full procedure note, which is enclosed. If I can be of further assistance, please feel free to contact me at Doctor phone number(s): , Work: . Sincerely, Amanuel Mckeon MD 07/15/2021 9:53:06 AM This report has been signed electronically.
[2021-07-15 09:55] VITALS: BP 104/55; BP 146/85; PULSE 65; RESP 16; TEMP 36.7; O2SAT 95
[2021-07-15 10:00] VITALS: BP 108/55; BP 146/85; PULSE 63; RESP 16; O2SAT 95
[2021-07-15 10:05] VITALS: BP 109/55; BP 146/85; PULSE 52; RESP 16; O2SAT 96
[2021-07-15 10:10] VITALS: BP 127/72; BP 146/85; PULSE 57; RESP 16; TEMP 36.3; O2SAT 96
[2021-07-15 10:30] VITALS: BP 146/85
== END 2021-07-15 23:59 | disposition home or self-care (01) ==
LOC: EN 08:16 → AC 08:19
PROVIDERS: PCP Family Medicine; Referring Provider Family Medicine; Visit Provider Surgery
PROC: 0DJD8ZZ Inspection of Lower Intestinal Tract, Via Natural or Artificial Opening Endoscopic (ICD-10-PCS; CPT 45378; principal; 2021-07-15 09:25)
DX: Z12.11 Encounter for screening for malignant neoplasm of colon (principal); D12.5 Benign neoplasm of sigmoid colon; I10 Essential (primary) hypertension; M19.90 Unspecified osteoarthritis, unspecified site; Z79.899 Other long term (current) drug therapy; Z86.010 Personal history of colon polyps; Z86.16 Personal history of COVID-19
CPT/HCPCS: 45385; 87426; 88305; C9803; J7120; J2405

== ENCOUNTER 2021-09-23 09:28 | Outpatient (CLI) | payer MEDICARE, SELFPAY ==
[2021-09-23 12:35] LABS: Anion Gap 7 (5-15); BUN 25 mg/dL (7-18); BUN/Creat Ratio 29.1 RATIO (10-20); Calcium,Total 9.3 mg/dL (8.5-10.1); Chloride 104 mmol/L (98-107); Cholesterol 278 mg/dL (200); Creatinine, Serum 0.86 mg/dL (0.55-1.02); EST Glomerular Filtration Rate 70 mL/min (>60); Est Glom Filt Rate - Afr Amer 84 mL/min (>60); Glucose 93 mg/dL (74-106); High Density Lipoprotein 72 mg/dL; Sodium Level 137 mmol/L (136-145); Triglycerides 164 mg/dL; Very Low Density Lipoprotein 33 mg/dL (5-40)
== END 2021-09-23 23:59 | disposition home or self-care (01) ==
LOC: MFPLAB 09:29
PROVIDERS: PCP Family Medicine; Visit Provider Family Medicine
DX: I10 Essential (primary) hypertension (principal)
CPT/HCPCS: 36415; 80048; 80061

== ENCOUNTER → 2022-04-21 | Outpatient (CLI) | payer MEDICARE, SELFPAY ==
--- NOTE | 2022-04-21 09:07 | BI_ITS ---
MAMMOGRAPHY - BILATERAL SCREENING REASON FOR EXAM: Female, 66 years old. Routine annual screening examination. PERTINENT HISTORY: Non-contributory. History of prior right excisional breast biopsy. TECHNIQUE: Digital bilateral breast rasheed (3D mammographic acquisition) in the CC and MLO projections. 2-D mediolateral oblique (MLO) and craniocaudad (CC) views of both breasts were obtained. CAD: Full Field Digital Mammography with Computer Added Detection was performed. COMPARISON: Comparison is made with prior study done 04/03/2020 and 05/04/2008. FINDINGS: Breast Composition: There are scattered areas of fibroglandular density. There are no dominant masses or suspicious calcifications. Stable bilateral scattered dermal calcifications. No other significant abnormalities are identified. There has been no significant change since the prior study. BI/SCRN MAMM (CAD)W/RASHEED BILAT IMPRESSION: Stable bilateral screening mammogram. Yearly follow-up mammogram recommended. (A) ASSESSMENT CATEGORY: BIRADS Category 2: Benign. A letter regarding these results will be sent to the patient by the facility within 30 days. Approximately 10% of breast cancers are not detected by mammography. A normal mammogram should not delay biopsy of a clinically suspicious abnormality. [id number] Electronically Signed: Jacques Min MD at 10:08 EST ,
--- NOTE | 2022-04-21 09:12 | BD_ITS ---
STUDY: DUAL ENERGY X-RAY ABSORPTIOMETRY / DXA REASON FOR EXAM: Female, 66 years old. [id number] TECHNIQUE: Bone Mineral Density (BMD) measurements of lumbar spine and bilateral hips were obtained. COMPARISON: Comparison is made with prior study dated 03/26/2020. FINDINGS: Lumbar Spine (L1-L4): g/cm2 (0.804) / T-score (-2.2) / Z-score (-0.2) Findings are suggestive of osteopenia with a high fracture risk. Left Femur Total: g/cm2 (0.914) / T-score (-0.2) / Z-score (1.2) Left Femoral Neck: g/cm2 (0.741) / T-score (-1.0) / Z-score (0.7) Right Femur Total: g/cm2 (0.896) / T-score (-0.4) / Z-score (1.0) Right Femoral Neck: g/cm2 (0.787) / T-score (-0.6) / Z-score (1.1) The T-Scores on the most recent prior examination were: Lumbar Spine (L1-L4): There has been worsening of bone density since the previous examination. Left Femur Total: which represents an improvement of 9.2%. Right Femur Total: which represents an improvement of 5.9%. BD/Dexa Bone Density Study IMPRESSION: The patient is considered osteopenic as outlined below according to World Michael Organization (WHO) criteria with a high fracture risk. There has been improvement of bone density since the previous examination. Reference Information: The T-score is the number of standard deviations above or below the standard which is normal for young adults at their peak bone mineral density. The World Health Organization (WHO) interprets the T-scores as follows: Above -1 Normal bone density Between -1 and -2.5 Osteopenia Equal to / or below -2.5 Osteoporosis As a practical clinical guideline, osteopenia may be graded as follows: Mild -1 through -1.5 Moderate -1.6 through -2.0 Severe -2.1 through -2.4 The Z-score is the number of standard deviations above or below age-matched controls. A Z-score of less than -1.5 would be considered abnormal. References: 1. NIH Osteoporosis and Related Bone Diseases www osteo.org 2. International Society for Clinical Densitometry www iscd.org 3. National Osteoporosis Foundation www nof.org Electronically Signed: Jacques Min MD at 9:11 EST ,
== END | disposition home or self-care (01) ==
LOC: OPBD 09:05
PROVIDERS: PCP Family Medicine; Visit Provider Family Medicine
DX: Z12.31 Encounter for screening mammogram for malignant neoplasm of breast (principal); Z78.0 Asymptomatic menopausal state
CPT/HCPCS: 77063; 77067; 77080

== ENCOUNTER 2022-04-23 11:16 | Outpatient (CLI) | payer MEDICARE, SELFPAY ==
[2022-04-23 12:18] LABS: PTHIN 45.7 pg/mL (18.4-80.1)
[2022-04-23 12:21] LABS: Vitamin D,25 Hydroxy 43.3 ng/mL
[2022-04-23 12:25] LABS: Anion Gap 6 (5-15); BUN 18 mg/dL (7-18); BUN/Creat Ratio 20.9 RATIO (10-20); Calcium,Total 9.8 mg/dL (8.5-10.1); Chloride 103 mmol/L (98-107); Creatinine, Serum 0.86 mg/dL (0.55-1.02); EST Glomerular Filtration Rate 70 mL/min (>60); Est Glom Filt Rate - Afr Amer 84 mL/min (>60); Glucose 101 mg/dL (74-106); Potassium 3.5 mmol/L (3.5-5.1); Sodium Level 141 mmol/L (136-145); Thyroid Stim Hormone (TSH) 1.55 uIU/mL (0.358-3.74)
== END 2022-04-23 23:59 | disposition home or self-care (01) ==
LOC: LAB 11:17
PROVIDERS: PCP Family Medicine; Referring Provider Family Medicine; Visit Provider Family Medicine
DX: M85.80 Other specified disorders of bone density and structure, unspecified site (principal); I10 Essential (primary) hypertension
CPT/HCPCS: 36415; 80048; 82306; 82330; 83970; 84443

== ENCOUNTER → 2022-10-05 | Outpatient (CLI) | payer MEDICARE, SELFPAY ==
--- NOTE | 2022-10-05 15:55 | RAD_ITS ---
STUDY: X-RAY - RIGHT ANKLE REASON FOR EXAM: Female, 66 years old. Pain and swelling without recent injury. History of injury 40 years ago. TECHNIQUE: 3 view(s) of the ankle. COMPARISON: None. FINDINGS: Normal visualized distal tibia and fibula. There are bony densities lie at the tip of the lateral malleolus suggesting secondary ossicles versus remote evulsion fragments. Normal tibiotalar articulation and ankle mortise. Normal visualized talus. There is a plantar spur along the underside of an otherwise normal calcaneus Arthrosis of visualized subtalar, talonavicular, calcaneocuboid and tarsal articulations. Minimal soft tissue swelling most marked laterally. RAD/Ankle min 3 Views IMPRESSION: Degenerative changes of the ankle and hindfoot without acute fracture or dislocation Electronically Signed: Manav Garcia DO at 23:40 EDT ,
== END | disposition home or self-care (01) ==
LOC: MTRAD 15:52
PROVIDERS: PCP Family Medicine; Referring Provider Family Medicine; Visit Provider Family Medicine
DX: M25.571 Pain in right ankle and joints of right foot (principal)
CPT/HCPCS: 73610

== ENCOUNTER 2023-03-29 20:38 | Emergency (ER) | payer MEDICARE, SELFPAY ==
[2023-03-29 20:39] VITALS: BP 178/97; PULSE 69; RESP 16; TEMP 35.6; O2SAT 96
--- NOTE | 2023-03-29 21:14 | RAD_ITS ---
RAD/Knee 3 Views IMPRESSION: 1. Cortical irregularity of the retropatellar articular facet perhaps secondary to chronic degenerative change. Acute injury cannot be excluded. 2. Apparent small joint effusion. 3. Degenerative changes. Electronically Signed: Quoc Tovar DO at 21:34 EDT ,
--- NOTE | 2023-03-29 23:49 | EDS_ITS ---
HPI History of Present Illness Chief Complaint: Lower Extremity Injury Informant: patient Narrative Narrative: 67-year-old female presenting to the emergency room with left knee pain. Patient states that a few hours ago she was in her kitchen and went to take a s tep and felt a pop in the left knee. She does not know where in the left knee she felt the pop. She is unsure if she had planted and went to turn or exactly how she was stepping but knew that she was taking a step. She states that over the past several months she has had pain when she bends her knee underneath of her when she is on the couch. She notes that the knee is tender over the medial aspect. She has not had any prior surgery in the knee. She took a meloxicam which she states is kicked in. She states for about 2 hours from 17 100-19 100 she was unable to bear weight. She does have crutches at home and has been utilizing them for unrelated issue. PFSH PFS Medical History Arthritis Back pain Chronic neck and back pain Frequent headaches Heartburn Hypertension Migraine headache Non-smoker Restless legs Wears glasses Home Medications lisinopril 40 mg tablet 40 mg PO DAILY 02/06/19 [History Last Taken 07/15/21 05:00] hydrochlorothiazide 25 mg tablet 25 mg PO DAILY 03/10/21 [History Last Taken Unknown] Allergy/AdvReac Type Severity Reaction Status Date / Time influenza virus vaccine ts AdvReac Swelling Verified 03/29/23 20:38 [id number] (36 mos,up) [From Fluarix] Family History Other Diabetes Heart disease Hypertension Surgical History History of hysterectomy History of lymph node excision History of repair of right rotator cuff Social History Smoking Status: Never smoker alcohol intake: never ROS ROS ED Constitutional Constitutional ED: Denies chills, fever(s) or weight loss Eyes Eyes: Denies change in vision or diplopia ENT ENT ED: Denies ear pain, rhinorrhea or sore throat Cardiovascular Cardiovascular: Denies chest pain, orthopnea, palpitations or racing heartbeat Respiratory/Chest Respiratory/Chest: Denies cough, dyspnea or orthopnea Gastrointestinal Gastrointestinal: Denies abdominal pain, diarrhea, nausea or vomiting Genitourinary Genitourinary ED: Denies dysuria, hematuria or urinary frequency Musculoskeletal Musculoskeletal: Reports arthralgias and other Details: See history of present illness ; Denies myalgias Integumentary Denies abscess or rash Neurologic Neurologic: Denies headache(s) or weakness Psychiatric Psychiatric: Denies anxiety, depression, suicidal ideation or suicidal thoughts Endocrine Endocrinology: Denies polydipsia, polyphagia or polyuria Allergic/Immunologic Allergic/Immunologic ED: Denies mouth swelling, tongue swelling or urticaria EXAM Physical Exam Const Vital Signs: 03/29/23 20:39 Temperature 96.1 F L Temperature Source Temporal Pulse Rate 69 Respiratory Rate 16 Blood Pressure 178/97 H Blood Pressure Mean 124 Pulse Ox 96 Oxygen Delivery Method Room Air Positive well nourished and well developed General Appearance ED: well developed HEENT Reports normocephalic, head/scalp atraumatic and moist mucous membranes Eyes PERRL and EOMs intact bilaterally Neck no lymphadenopathy, supple and no JVD Resp normal respiratory effort and clear to auscultation bilaterally Cardio regular rate, regular rhythm and no murmurs GI normal to inspection, nondistended, normoactive bowel sounds and non-tender Palpation: soft Back/Spine no CVA tenderness and normal ROM Extremity Extremity Narrative: I do not palpate any obvious joint effusion. Extensor mechanism is intact. The patella is nontender. She reports tenderness to palpation over the medial aspect of the knee. Ligaments appear stable on direct testing. She does not have pain with grind test. No specific pain along the joint lines. No erythema or redness or increased warmth. General Extremety ED: Negative for edema General Extremity: Negative for edema Neuro oriented x3 and CN's II-XII intact bilaterally Sensorium / Orientation: alert Motor Exam: strength 5/5 throughout Psych mental status grossly normal Mood & Affect: Negative for depressed or tearful Skin no rashes or lesions noted and no wounds MDM MDM MDM Narrative Medical decision making narrative: My independent interpretation of the plain films of the knee is no obvious acute fracture. We will treat this conservatively with Mat wrap would recommend continued anti- inflammatories and uses of crutches. She is to follow-up with orthopedics if n ot improving. We talked about possible etiologies including ligamentous and meniscal. We talked about occult fractures. Radiography Diagnostic Testing: Clinical Impression(s) from Imaging Studies Knee X-Ray 03/29/23 21:14 IMPRESSION: 1. Cortical irregularity of the retropatellar articular facet perhaps secondary to chronic degenerative change. Acute injury cannot be excluded. 2. Apparent small joint effusion. 3. Degenerative changes. Electronically Signed: Quoc Tovar DO at 21:34 EDT , Discharge Plan Triage Chief Complaint: Lower Extremity Injury ED Provider: Raymond Jernigan Dx/Rx/DC Orders Clinical Impression: Left knee sprain, Acute pain of left knee Instructions: ED Knee Sprain Prescriptions: No Action lisinopril 40 mg tablet 40 mg PO DAILY hydrochlorothiazide 25 mg tablet 25 mg PO DAILY Patient Comments: TAKE 1 TABLET BY MOUTH EVERY DAY (STOP 12.5MG DOSE) Primary Care Provider: Greg Chapa Referrals: Greg Chapa MD [Primary Care Provider] - Pastor Madison DO [Med Staff - Active Staff] - 10-14 Days if not better Activity Restrictions/Additional Instructions: I would recommend ice and 20-minute sessions at least 3 times a day over the next 3 days. Would recommend continued anti-inflammatories (using meloxicam or Motrin) Crutches as needed and weightbearing as tolerated Disposition Disposition: Home, Self Care
[2023-03-29 23:55] VITALS: BMI 32.9
[2023-03-30 00:23] VITALS: BP 152/92; BP 153/92; PULSE 74; RESP 16; O2SAT 97
== END 2023-03-30 00:25 | disposition home or self-care (01) ==
PROVIDERS: Emergency Provider Emergency Medicine; PCP Family Medicine; Visit Provider Emergency Medicine
DX: S83.92XA Sprain of unspecified site of left knee, initial encounter (principal); X58.XXXA Exposure to other specified factors, initial encounter; Y92.000 Kitchen of unspecified non-institutional (private) residence as the place of occurrence of the external cause; I10 Essential (primary) hypertension; Z79.899 Other long term (current) drug therapy
CPT/HCPCS: 73562; 99284

== ENCOUNTER → 2023-05-03 | Outpatient (CLI) | payer MEDICARE, SELFPAY ==
--- NOTE | 2023-05-03 08:15 | MRI_ITS ---
STUDY: MRI LEFT KNEE REASON FOR EXAM: Female, 67 years old. Left knee pain for 5 weeks. TECHNIQUE: Standardized fat and water weighted pulse sequences were obtained in all 3 orthogonal planes. COMPARISON: Left knee radiographs dated 03/29/2023. FINDINGS: There is a tear of the posterior medial meniscal root. There is a curvilinear subchondral trabecular stress fracture of the medial tibial plateau, with surrounding marrow edema (coronal T2 series 7 image 14). There is degenerative arthrosis of the medial femorotibial compartment with joint space narrowing, marginal osteophyte formation, and areas of high-grade chondromalacia. Normal medial collateral ligamentous complex (MCL). Normal distal semimembranosus, gracilis and semitendinosus tendons. Normal lateral meniscus. Normal hyaline cartilage of the lateral femorotibial compartment. There is mild osteoarthritic spur formation of the lateral knee compartment. Normal proximal tibiofibular articulation. Normal lateral collateral (fibular) ligament. Normal popliteus tendon. Normal biceps femoris tendon. Normal anterior cruciate ligament (ACL). Normal posterior cruciate ligament (PCL). There is moderate grade chondromalacia with underlying subchondral marrow edema. There is slight lateral patellar subluxation. Normal medial and lateral patellar retinaculum. Normal quadriceps tendon. Normal patellar tendon. Normal Hoffa''s fat pad. There is a small joint effusion. There is a tiny popliteal cyst. The soft tissues are unremarkable. MRI/Lower Ext Joint Only (Routine) IMPRESSION: Tear of the posterior medial meniscal root. Curvilinear subchondral trabecular stress fracture of the medial tibial plateau, with surrounding marrow edema. Tricompartment degenerative arthrosis. Slight lateral patellar subluxation. Small joint effusion with a tiny popliteal cyst. Electronically Signed: Gerardo Jean MD at 15:42 EST ,
[2023-05-03 09:46] LABS: Ionized Calcium 5.32 mg/dL (4.36-5.20)
[2023-05-03 11:26] LABS: PTHIN 30.2 pg/mL (18.4-80.1)
[2023-05-03 11:30] LABS: Vitamin D,25 Hydroxy 49.4 ng/mL
[2023-05-03 11:38] LABS: Anion Gap 6 (5-15); BUN 20 mg/dL (7-18); BUN/Creat Ratio 22.9 RATIO (10-20); Calcium,Total 9.4 mg/dL (8.5-10.1); Chloride 105 mmol/L (98-107); Cholesterol 269 mg/dL (200); Creatinine, Serum 0.88 mg/dL (0.55-1.02); EST Glomerular Filtration Rate 68 mL/min (>60); Est Glom Filt Rate - Afr Amer 82 mL/min (>60); Glucose 90 mg/dL (74-106); High Density Lipoprotein 90 mg/dL; Potassium 3.8 mmol/L (3.5-5.1); Sodium Level 140 mmol/L (136-145); Thyroid Stim Hormone (TSH) 1.51 uIU/mL (0.358-3.74); Triglycerides 107 mg/dL; Very Low Density Lipoprotein 21 mg/dL (5-40)
== END | disposition home or self-care (01) ==
PROVIDERS: PCP Family Medicine; Referring Provider Family Medicine; Visit Provider Family Medicine
DX: Z00.00 Encounter for general adult medical examination without abnormal findings (principal); M25.562 Pain in left knee
CPT/HCPCS: 36415; 73721; 80048; 80061; 82306; 82330; 83970; 84443

== ENCOUNTER → 2023-05-17 | Outpatient (CLI) | payer MEDICARE, SELFPAY ==
--- NOTE | 2023-05-17 09:13 | BI_ITS ---
MAMMOGRAPHY - BILATERAL SCREENING REASON FOR EXAM: Female, 67 years old. Routine annual screening examination. PERTINENT HISTORY: Non-contributory. Occasional tenderness in the upper outer quadrant of the left breast. TECHNIQUE: Digital bilateral breast rasheed (3D mammographic acquisition) in the CC and MLO projections. 2-D mediolateral oblique (MLO) and craniocaudad (CC) views of both breasts were obtained. CAD: Full Field Digital Mammography with Computer Added Detection was performed. COMPARISON: Comparison is made with prior study in April 21, 2022 and April 03, 2020. FINDINGS: Breast Composition: There are scattered areas of fibroglandular density. There are no dominant masses or suspicious calcifications. Stable bilateral scattered microcalcifications. Stable fat-containing bilateral axillary lymph nodes. No other significant abnormalities are identified. There has been no significant change since the prior study. BI/SCRN MAMM (CAD)W/RASHEED BILAT IMPRESSION: Stable bilateral screening mammogram. Yearly follow-up mammogram recommended. (A) ASSESSMENT CATEGORY: BIRADS Category 2: Benign. A letter regarding these results will be sent to the patient by the facility within 30 days. Approximately 10% of breast cancers are not detected by mammography. A normal mammogram should not delay biopsy of a clinically suspicious abnormality. [id number] Electronically Signed: Jacques Min MD at 10:51 EST ,
== END | disposition home or self-care (01) ==
LOC: OPBI 09:12
PROVIDERS: PCP Family Medicine; Referring Provider Family Medicine; Visit Provider Family Medicine
DX: Z12.31 Encounter for screening mammogram for malignant neoplasm of breast (principal)
CPT/HCPCS: 77063; 77067

== ENCOUNTER → 2023-11-22 | Outpatient (CLI) | payer MEDICARE, SELFPAY ==
--- NOTE | 2023-11-22 12:58 | RAD_ITS ---
STUDY: X-RAY CHEST REASON FOR EXAM: Female, 67 years old. Dyspnea on exertion. TECHNIQUE: Frontal and lateral views of the chest on 3 images. COMPARISON: None. FINDINGS: The lungs are clear and expanded. There is no demonstrated pleural abnormality. Borderline cardiomegaly. Normal mediastinum and aida. Normal visualized pulmonary arteries. Aortic tortuosity with calcification. Normal visualized thoracic spine. Normal visualized ribs, clavicles, and shoulders. No abnormality of the visualized soft tissue structures of the upper abdomen. RAD/Chest PA and Lateral IMPRESSION: Borderline cardiomegaly with no acute or active cardiopulmonary disease. Electronically Signed: Umberto Thompson MD at 13:48 EDT ,
[2023-11-22 15:18] LABS: Hematocrit 41.4 % (37-47); Hemoglobin 13.5 g/dL (12.0-15.0); Mean Corp Hgb Conc 32.6 g/dL (32-36); Mean Corpuscular Hgb 31.6 pg (27.0-32.0); Mean Platelet Vol. 10.5 fl (6.2-12.0); Platelet Count 310 K/mm3 (150-450); RBC Distribution Width CV 12.8 % (11.6-14.6); RBC Distribution Width SD 45.7 fl (35.1-43.9); Red Blood Count 4.27 M/mm3 (4.2-5.4); White Blood Count 8.1 K/mm3 (4.4-11.0)
[2023-11-22 20:46] LABS: ALB/GLOB Ratio 1.1 RATIO (0.9-2.4); AST(SGOT) 19 U/L (15-37); Alanine Aminotransfer ALT/SGPT 31 U/L (13-56); Albumin, Serum 3.8 g/dL (3.2-5.0); Alkaline Phosphatase 96 U/L (45-117); Anion Gap 8 (5-15); BUN 23 mg/dL (7-18); BUN/Creat Ratio 20.9 RATIO (10-20); Calcium,Total 9.9 mg/dL (8.5-10.1); Chloride 101 mmol/L (98-107); EST Glomerular Filtration Rate 52 mL/min (>60); Est Glom Filt Rate - Afr Amer 63 mL/min (>60); Globulin 3.4 g/dL (2.2-4.2); Glucose 94 mg/dL (74-106); Potassium 3.4 mmol/L (3.5-5.1); Protein, Total 7.2 g/dL (6.4-8.2); Sodium Level 137 mmol/L (136-145); Thyroid Stim Hormone (TSH) 1.52 uIU/mL (0.358-3.74)
== END | disposition home or self-care (01) ==
PROVIDERS: PCP Family Medicine; Referring Provider Family Medicine; Visit Provider Family Medicine
DX: R06.09 Other forms of dyspnea (principal)
CPT/HCPCS: 36415; 71046; 80053; 84443; 85027

== ENCOUNTER → 2024-04-03 | Outpatient (CLI) | payer MEDICARE, SELFPAY ==
--- OUTSIDE RECORDS SUMMARY | 2024-04-03 06:29 | XMS RPT_ITS | CCD ---
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 Toribio Lawson Attending Ya vailable Dr. Toribio Lawson Primary Care Ya vailable Problems Problem Classification Problem Date Documented Da te Episodic/Chronic Disorders of lipid metabolism (3 sources) Hyperlipidemia, unspecified; Translations: [Hyperlipidemia, unspecified] Onset: 04-13-2022 Chronic Results Test Name Value Interpretation Reference Range Facil ity CT CARDIAC SCORINGon 022 CT CARDIAC SCORING Patient Name: SWAPNIL MENJIVAR STUDY: CT CARDIAC SCORING; 04/13/2022 3:38 pm INDICATION: Hyperlipidemia, unspecified. COMPARISON: None. ACCESSION NUMBER(S): [id number] ORDERING CLINICIAN: TORIBIO LAWSON TECHNIQUE: Using prospective ECG gating, CT scan of the coronary arteries was performed without intravenous contrast. Coronary calcium scoring was performed according to the method of Agatston. FINDINGS: The score and distribution of calcium in the coronary arteries is as follows: LM 0 LAD 1.29 LCx 0 RCA 0 Total 1.29 The heart size is normal and there is no pericardial effusion. The chest vasculature is unremarkable.There are several calcified right hilar granulomatous nodes. Otherwise no significant hilar or mediastinal adenopathy. Calcified granulomas are present within the right lower lung. A subpleural nodule in the left lower lung posterolaterally on image 22 of series 3 measuring approximately 3 mm, 4 mm nodule along the left major fissure on image 15, and 4 mm subpleural nodule more inferiorly on image 41 are probably intrapulmonary nodes, likely benign. A 2 mm subpleural right lung nodule on image 22 is probably a small granuloma. No further follow-up is required, however, if the patient has high risk factors for primary lung malignancy, follow-up noncontrast CT scan chest in 12 months may be obtained. (Fritz MacMahon et al., Guidelines for management of incidental pulmonary nodules detected on CT images: From the Fleischner Society 2017, Radiology. 2017 Franco;284 (1):228-243.) [email or web address] an oblique opacity at the left costophrenic angle posteriorly is probably fibrosis or atelectasis. Additionally there is a ground glass pulmonary nodule measuring approximately 7 mm in the in the right upper lobe on image 22 of series 3.Consider follow up non contrast chest CT at 6-12 months to confirm persistence, then consider CT chest every 2 years until 5 years.([place] MacMahon et al., Guidelines for management of incidental pulmonary nodules detected on CT images: From the Fleischner Society 2017, Radiology. 2017 Franco;284 (1):228-243.) [email or web address].[email or web address] The included lungs otherwise are clear. Visualized upper abdominal structures are unremarkable IMPRESSION: Coronary artery calcium score of 1.29 Pulmonary nodules as described. Given a ground-glass nodule, consider CT chest follow-up at 6-12 months. Coronary artery calcium scoring may be helpful in predicting the risk for future coronary heart disease events. According to the [place] [employer] Clinical Expert Consensus Task Force, such testing provides important prognostic information in patients with more than one coronary heart disease risk factor. The coronary artery calcium score correlates with the annual risk of a non-fatal myocardial infarction or coronary heart disease . Coronary artery score Annual Risk 0-99 0.4% 100-399 1.3% >400 2.4% These three breakpoints correspond to lower, intermediate and high risk states for future coronary events. Such information should be used, along with appropriate clinical judgment, to make decisions regarding the intensity of risk factor management strategies to treat blood lipids and to modify other non-lipid coronary risk factors. Reference: [place] P et al. Circulation. 2007; 115:402-426 Electronically signed by: CAMILLE BALLARD MD [facility] Encounters Encounter Date Encounter Type Care Provider Facility Start: 04-13-[address] Toribio lainez Facility:[id number] Payers Date Payer Category Payer Unknown [id number] Unknown [id number] Summary Purpose Family History No Family History Records Found Advance Directives No Advanced Directives Records Found Additional Source Comments INFORMATION SOURCE (unrecogn ized section and content) DATE CREATED AUTHOR 04/16/2022 [facility] FOR RECORDS PERTAINING TO PATIENTS WHO ARE OR HAVE BEEN ENROLLED IN A CHEMICAL DEPENDENCY/SUBSTANCEABUSE PROGRAM, SOME INFORMATION MAY BE OMITTED. This clinical summary was aggregated from multiple sources. Caution should be exercised in using it in the provision of clinical care. This summary normalizes information from multiple sources, and as a consequence, information in this document may materially change the coding, format and clinical context of patient data. In addition, data may be omitted in some cases. CLINICAL DECISIONS SHOULD BE BASED ON THE PRIMARY CLINICAL RECORDS. [facility] [employer] [facility]. provides no warranty or guarantee of the accuracy or completeness of information in this document.
--- NOTE | 2024-04-03 09:44 | STRESSREP ---
Stress Test Report Pharmacologic myocardial perfusion stress test 68-year-old lady with a history of shortness of breath Resting EKG demonstrates sinus bradycardia with a rate of 54 bpm resting blood pressure is 128/86 mmHg. 0.4 mg of regadenoson was infused per usual protocol for liver appeared to be no saline/injection continuous EKG monitoring was performed. At rest there were no ST or T wave changes noted suggest abnormal flow reserve and at peak infusion nonspecific ST-T wave changes were noted to suggest ischemia. The resting blood pressure was 128/86 with a final blood pressure 124/80. Myocardial perfusion protocol. 9.7 mCi of technetium 99m sestamibi was injected at rest. 0.4 mg of regadenoson was infused per HR protocol. At peak infusion 32.1 mCi of technetium 99m sestamibi was injected stress images were obtained stress and rest images were reconstructed and compared in the short axis vertical and horizontal long axis. Gated images were also obtained Perfusion SPECT analysis: Review of the stress images demonstrate normal uptake of tracer noted in all areas of myocardium. The resting images similar demonstrate normal uptake of tracer noted in all areas myocardium. No areas of reversibility are noted suggest ischemia. Gated SPECT analysis: The gated ejection fraction is 76%. Conclusion: Normal pharmacologic myocardial perfusion stress test. Preserved ejection fraction.
== END | disposition home or self-care (01) ==
LOC: CVS 06:27
PROVIDERS: PCP Family Medicine; Referring Provider Family Medicine; Visit Provider Family Medicine
DX: R06.09 Other forms of dyspnea (principal)
CPT/HCPCS: 78452; 93017; A9500; A4216; J2785

== ENCOUNTER 2024-07-25 20:22 | Inpatient (IN) | payer MEDICARE, SELFPAY ==
[2024-07-25] VITALS (8 sets, daily range): BP systolic 134–201; BP diastolic 83–106; PULSE 70–78; RESP 15–19; TEMP 36.4–36.8; O2SAT 95–100; BMI 35.4; BMI 35.2
--- NOTE | 2024-07-25 20:27 | RAD_ITS ---
PROCEDURE: CHEST 1 VIEW (PORTABLE) REASON FOR EXAM: Chest pain TECHNIQUE: Frontal and lateral views of the chest. COMPARISON: 11/22/2023. FINDINGS: The heart size is normal. There are atherosclerotic calcifications of the thoracic aorta. The lungs are clear. The bones are unremarkable. RAD/Chest 1 View (Portable) IMPRESSION: No radiographic evidence of acute cardiopulmonary disease [facility]
[2024-07-25 20:43] LABS: Basophil# 0.05 X10^3/uL; Basophil% 0.5 % (0-1); Eosinophil# 0.13 X10^3/uL; Eosinophils% 1.3 % (0-5); Hematocrit 40.9 % (37-47); Hemoglobin 13.6 g/dL (12.0-15.0); Lymphocyte % 29.8 % (19-41); Mean Corp Hgb Conc 33.3 g/dL (32-36); Mean Corpuscular Hgb 31.5 pg (27.0-32.0); Mean Corpuscular Volume 94.7 fL (81-99); Mean Platelet Vol. 9.5 fl (6.2-12.0); Monocyte# 0.85 X10^3/uL; Monocyte% 8.4 % (0-10); NRBC Flagged by Analyzer 0 % (0-5); Neutrophil # 5.96 X10^3/uL (2.7-7.7); Neutrophil % 59.3 % (47-70); Platelet Count 315 K/mm3 (150-450); RBC Distribution Width SD 44.9 fl (35.1-43.9); Red Blood Count 4.32 M/mm3 (4.2-5.4); White Blood Count 10.1 K/mm3 (4.4-11.0)
[2024-07-25] MEDS: Aspirin 81 MG TAB.CHEW 324 MG PO (20:44)
--- NOTE | 2024-07-25 20:44 | EDS_ITS ---
HPI History of Present Illness Chief Complaint: Chest Pain Informant: patient Onset/Context/Timing Onset: Yesterday Activity at onset: sudden and rest Timing: Intermittent Quality: Positive for Tightness Location: Substernal Worsened By: - (Laying down) Relieved By: Nothing Associated Symptoms: Positive for Nausea, Cough, Lightheadedness and Acid Reflux; Negative for Vomiting, Diaphoresis, Dyspnea, Fever or Palpitations Narrative Narrative: Patient presents with chest pain that began last night. Patient states she was at rest when the pain began. Patient states that has been waxing and waning. Patient describes it as a tightness. Patient states it is over the substernal area. Patient states it radiates into her neck and between her shoulder blades. Patient states it is worse when she lays down. Patient admits to some nausea and lightheadedness. Patient admits to a cough and some reflux symptoms. Patient denies any diaphoresis or shortness of breath. CVD Risk Factors: Positive for Hypertension; Negative for Diabetes, Hypercholesterolemia, Family History 1' </=55 or Smoking PE Risk Factors: Negative for Recent Travel/Surgery, Recent Immobilization, Prior DVT or PE, Cancer or OCP + Smoking + >/=35 [facility] Medical History Stress fracture, left tibia, initial encounter for fracture Left knee pain Right ankle pain History of mammogram Right rotator cuff tear arthropathy Osteoporosis GERD (gastroesophageal reflux disease) Wears glasses Arthritis Back pain Restless legs Migraine headache Heartburn Non-smoker Chronic neck and back pain Frequent headaches Hypertension Medical History no medical history Home Medications ?Medication ?Instructions ?Recorded ?Last Taken ?Type lisinopril 40 mg tablet 40 mg PO DAILY 02/06/1907/08 History hydrochlorothiazide 25 mg tablet 25 mg PO DAILY 07/24/24 History ascorbic acid (vitamin C) 1,000 mg 1 g PO DAILY 07/24/24 History capsule tmenqti-[id number]-paedcgck 250 1 tab PO ONCE PRN m igraine 05/13/23 07/25/24 History mg-250 mg-65 mg tablet (Excedrin Migraine) cholecalciferol (vitamin D3) 25 25 mcg PO DAILY 07/24/24 History mcg (1,000 unit) capsule esomeprazole magnesium 20 mg 20 mg PO DAILY PRN acid r eflux 05/13/23 07/25/24 History capsule,delayed release (Nexium) meloxicam 15 mg tablet 15 mg PO DAILY PRN pain 12/27 Unknown History vitamin B complex (B 1 tab PO DAILY 05/13/2307/08 History Complex-Vitamin B12 tablet) Allergy/AdvReac Type Severity Reaction Status Date / Time influenza virus vaccine ts AdvReac Swelling Verified 07/25/24 20:25 [id number] (36 mos,up) (From FluariSyntasia) Family History Uncle Diabetes Heart disease Colon cancer Aunt Diabetes Heart disease Daughter Diabetes Grandmother Heart disease CVA (cerebral vascular accident) Mother Skin cancer Other Hypertension
--- NOTE | 2024-07-25 20:44 | ED.VIS.CHEST ---
HPI History of Present Illness Chief Complaint: Chest Pain Informant: patient Onset/Context/Timing Onset: Yesterday Activity at onset: sudden and rest Timing: Intermittent Quality: Positive for Tightness Location: Substernal Worsened By: - (Laying down) Relieved By: Nothing Associated Symptoms: Positive for Nausea, Cough, Lightheadedness and Acid Reflux; Negative for Vomiting, Diaphoresis, Dyspnea, Fever or Palpitations Narrative Narrative: Patient presents with chest pain that began last night. Patient states she was at rest when the pain began. Patient states that has been waxing and waning. Patient describes it as a tightness. Patient states it is over the substernal area. Patient states it radiates into her neck and between her shoulder blades. Patient states it is worse when she lays down. Patient admits to some nausea and lightheadedness. Patient admits to a cough and some reflux symptoms. Patient denies any diaphoresis or shortness of breath. CVD Risk Factors: Positive for Hypertension; Negative for Diabetes, Hypercholesterolemia, Family History 1' </=55 or Smoking PE Risk Factors: Negative for Recent Travel/Surgery, Recent Immobilization, Prior DVT or PE, Cancer or OCP + Smoking + >/=35 [facility] Medical History Stress fracture, left tibia, initial encounter for fracture Left knee pain Right ankle pain History of mammogram Right rotator cuff tear arthropathy Osteoporosis GERD (gastroesophageal reflux disease) Wears glasses Arthritis Back pain Restless legs Migraine headache Heartburn Non-smoker Chronic neck and back pain Frequent headaches Hypertension Medical History no medical history Home Medications ?Medication ?Instructions ?Recorded ?Last Taken ?Type lisinopril 40 mg tablet 40 mg PO DAILY 02/06/19 07/24/24 History hydrochlorothiazide 25 mg tablet 25 mg PO DAILY 03/10/21 07/24/24 History ascorbic acid (vitamin C) 1,000 mg 1 g PO DAILY 05/13/23 07/24/24 History capsule ahmskeg-[id number]-redgqaia 250 1 tab PO ONCE PRN migraine 05/13/23 07/25/24 History mg-250 mg-65 mg tablet (Excedrin Migraine) cholecalciferol (vitamin D3) 25 25 mcg PO DAILY 05/13/23 07/24/24 History mcg (1,000 unit) capsule esomeprazole magnesium 20 mg 20 mg PO DAILY PRN acid reflux 05/13/23 07/25/24 History capsule,delayed release (Nexium) meloxicam 15 mg tablet 15 mg PO DAILY PRN pain 05/13/23 Unknown History vitamin B complex (B 1 tab PO DAILY 05/13/23 07/24/24 History Complex-Vitamin B12 tablet) Allergy/AdvReac Type Severity Reaction Status Date / Time influenza virus vaccine ts AdvReac Swelling Verified 07/25/24 20:25 [id number] (36 mos,up) (From [employer]) Family History Uncle Diabetes Heart disease Colon cancer Aunt Diabetes Heart disease Daughter Diabetes Grandmother Heart disease CVA (cerebral vascular accident) Mother Skin cancer Other Hypertension Surgical History History of colonoscopy History of removal of skin mole S/P LASIK surgery of both eyes History of lumpectomy of left breast History of tonsillectomy History of lymph node excision History of repair of right rotator cuff History of hysterectomy Social History Smoking Status: Never smoker alcohol intake: never ROS ROS ED Constitutional Constitutional ED: Denies chills or fever(s) Eyes Eyes: Reports blurry vision; Denies change in vision ENT ENT ED: Denies rhinorrhea or sore throat Cardiovascular Cardiovascular: Reports chest pain; Denies palpitations Respiratory/Chest Respiratory/Chest: Reports cough; Denies dyspnea Gastrointestinal Gastrointestinal: Reports nausea; Denies vomiting Genitourinary Genitourinary ED: Denies dysuria or hematuria Musculoskeletal Musculoskeletal: Reports back pain and neck pain Integumentary Denies abscess or rash Neurologic Neurologic: Denies headache(s) or weakness Allergic/Immunologic Allergic/Immunologic ED: Denies mouth swelling or urticaria EXAM Physical Exam Const Vital Signs: 07/25/24 20:25 07/25/24 20:27 07/25/24 20:39 Temperature 98.2 F Temperature Source Oral Pulse Rate 74 Respiratory Rate 18 Respiratory Effort Blood Pressure 201/103 H Blood Pressure Mean 135 Pulse Ox 100 98 Oxygen Delivery Method Room Air Nasal Cannula Nasal Cannula Oxygen Flow Rate (L/min) 2 2 07/25/24 20:40 07/25/24 20:42 07/25/24 21:00 Temperature Temperature Source Pulse Rate 77 Respiratory Rate 18 Respiratory Effort Normal Blood Pressure 171/101 H 171/101 H Blood Pressure Mean Pulse Ox Oxygen Delivery Method Oxygen Flow Rate (L/min) Positive well nourished and well developed General Appearance ED: well developed and NAD HEENT Reports moist mucous membranes Neck supple and no JVD Chest Wall inspection of chest normal Chest: tenderness sternum Resp normal respiratory effort and clear to auscultation bilaterally Cardio regular rate and regular rhythm GI soft to palpation, non-tender and non-distended Extremity normal to inspection General Extremety ED: Negative for edema or tenderness General Extremity: Negative for edema Neuro oriented x3, CN's II-XII intact bilaterally and no sensory deficits noted Sensorium / Orientation: awake and alert Motor Exam: strength 5/5 throughout Psych mental status grossly normal Skin no rashes or lesions noted Heart Score History: Highly Suspicious ECG: Significant ST-Depression Age: >/= 65 years Risk Factors: 1 or 2 Risk Factors Troponin: >/=3 x Normal Limit Score: 9 MDM MDM MDM Narrative Medical decision making narrative: Differential diagnosis includes acute STEMI, cardiac dysrhythmia, cardiac ischemia, electrolyte abnormality, pneumonia, bronchitis, and musculoskeletal pain. EKG will be obtained to assess for STEMI, cardiac dysrhythmia, and cardiac ischemia. Chest x-ray will be obtained to assess for pneumonia, pneumothorax, and widened mediastinum. CBC will be obtained to assess for leukocytosis and anemia. Basic metabolic profile will be obtained to assess for electrolyte abnormality renal function. High-sensitivity troponin will be obtained to assess for cardiac ischemia. PT with INR PTT will be obtained to assess for coagulopathy. 2-hour repeat high-sensitivity troponin will be obtained to assess for ongoing cardiac ischemia. Lab Data Attestation: I reviewed the patient's lab results. Lab results narrative: CBC was reviewed and was within normal limits. Basic metabolic profile was reviewed. BUN was slightly elevated 21 and creatinine was 1.12. High-sensitivity troponin was reviewed and was elevated at 1678. Labs: Laboratory Results - last 24 hr 07/25/24 07/25/24 07/25/24 20:32 20:32 20:32 WBC 10.1 Cancelled Corrected WBC Cancelled RBC 4.32 Cancelled Hgb 13.6 Hct MCV MCH MCHC RDW Std Deviation RDW Coeff of Sheryl Plt Count MPV Immature Gran % (Auto) Neut % (Auto) Lymph % (Auto) Brown % (Auto) Eos % (Auto) Baso % (Auto) Absolute Neuts (auto) Absolute Lymphs (auto) Total Counted Neutrophils % (Manual) Band Neutrophils % Lymphocytes % (Manual) Monocytes % (Manual) Eosinophils % (Manual) Basophils % (Manual) Metamyelocytes % Myelocytes % Promyelocytes % Blast Cells % Plasma Cell % (Manual) Other Cells % Nucleated RBC % Nucleated RBCs/100 WBC Differential Comment Diff Path Review Hypersegmented Neuts Atypical Lymphocytes Reactive Lymphocytes Smudge Cells Toxic Granulation Toxic Vacuolation Dohle Bodies Zachariah Rods Platelet Estimate Plt Morphology Comment RBC Morphology Polychromasia Hypochromasia Basophilic Stippling Anisocytosis Microcytosis Macrocytosis Spherocytes Sickle Cells Target Cells Tear Drop Cells Ovalocytes Stomatocytes [place] Bodies Jackson Cells Bite Cells Crenated Cell Acanthocytes (Spur) Rouleaux Schistocytes Sodium Potassium Chloride Carbon Dioxide Anion Gap BUN Creatinine Estim Creat Clear Calc Est GFR (MDRD) Af Amer Est GFR (MDRD) Non-Af BUN/Creatinine Ratio Glucose Calcium Troponin I High Sens 07/25/24 07/25/24 07/25/24 20:32 20:32 20:32 WBC Corrected WBC RBC Hgb Cancelled Hct 40.9 Cancelled MCV 94.7 Cancelled MCH 31.5 MCHC RDW Std Deviation RDW Coeff of Sheryl Plt Count MPV Immature Gran % (Auto) Neut % (Auto) Lymph % (Auto) Brown % (Auto) Eos % (Auto) Baso % (Auto) Absolute Neuts (auto) Absolute Lymphs (auto) Total Counted Neutrophils % (Manual) Band Neutrophils % Lymphocytes % (Manual) Monocytes % (Manual) Eosinophils % (Manual) Basophils % (Manual) Metamyelocytes % Myelocytes % Promyelocytes % Blast Cells % Plasma Cell % (Manual) Other Cells % Nucleated RBC % Nucleated RBCs/100 WBC Differential Comment Diff Path Review Hypersegmented Neuts Atypical Lymphocytes Reactive Lymphocytes Smudge Cells Toxic Granulation Toxic Vacuolation Dohle Bodies Zachariah Rods Platelet Estimate Plt Morphology Comment RBC Morphology Polychromasia Hypochromasia Basophilic Stippling Anisocytosis Microcytosis Macrocytosis Spherocytes Sickle Cells Target Cells Tear Drop Cells Ovalocytes Stomatocytes [place] Bodies Jackson Cells Bite Cells Crenated Cell Acanthocytes (Spur) Rouleaux Schistocytes Sodium Potassium Chloride Carbon Dioxide Anion Gap BUN Creatinine Estim Creat Clear Calc Est GFR (MDRD) Af Amer Est GFR (MDRD) Non-Af BUN/Creatinine Ratio Glucose Calcium Troponin I High Sens 07/25/24 07/25/24 07/25/24 20:32 20:32 20:32 WBC Corrected WBC RBC Hgb Hct MCV MCH Cancelled MCHC 33.3 Cancelled RDW Std Deviation 44.9 H Cancelled RDW Coeff of Sheryl 13.0 Plt Count MPV Immature Gran % (Auto) Neut % (Auto) Lymph % (Auto) Brown % (Auto) Eos % (Auto) Baso % (Auto) Absolute Neuts (auto) Absolute Lymphs (auto) Total Counted Neutrophils % (Manual) Band Neutrophils % Lymphocytes % (Manual) Monocytes % (Manual) Eosinophils % (Manual) Basophils % (Manual) Metamyelocytes % Myelocytes % Promyelocytes % Blast Cells % Plasma Cell % (Manual) Other Cells % Nucleated RBC % Nucleated RBCs/100 WBC Differential Comment Diff Path Review Hypersegmented Neuts Atypical Lymphocytes Reactive Lymphocytes Smudge Cells Toxic Granulation Toxic Vacuolation Dohle Bodies Zachariah Rods Platelet Estimate Plt Morphology Comment RBC Morphology Polychromasia Hypochromasia Basophilic Stippling Anisocytosis Microcytosis Macrocytosis Spherocytes Sickle Cells Target Cells Tear Drop Cells Ovalocytes Stomatocytes [place] Bodies Isaac Cells Bite Cells Crenated Cell Acanthocytes (Spur) Rouleaux Schistocytes Sodium Potassium Chloride Carbon Dioxide Anion Gap BUN Creatinine Estim Creat Clear Calc Est GFR (MDRD) Af Amer Est GFR (MDRD) Non-Af BUN/Creatinine Ratio Glucose Calcium Troponin I High Sens 07/25/24 07/25/24 07/25/24 20:32 20:32 20:32 WBC Corrected WBC RBC Hgb Hct MCV MCH MCHC RDW Std Deviation RDW Coeff of Sheryl Cancelled Plt Count 315 Cancelled MPV 9.5 Cancelled Immature Gran % (Auto) 0.700 Neut % (Auto) Lymph % (Auto) Brown % (Auto) Eos % (Auto) Baso % (Auto) Absolute Neuts (auto) Absolute Lymphs (auto) Total Counted Neutrophils % (Manual) Band Neutrophils % Lymphocytes % (Manual) Monocytes % (Manual) Eosinophils % (Manual) Basophils % (Manual) Metamyelocytes % Myelocytes % Promyelocytes % Blast Cells % Plasma Cell % (Manual) Other Cells % Nucleated RBC % Nucleated RBCs/100 WBC Differential Comment Diff Path Review Hypersegmented Neuts Atypical Lymphocytes Reactive Lymphocytes Smudge Cells Toxic Granulation Toxic Vacuolation Dohle Bodies Zachariah Rods Platelet Estimate Plt Morphology Comment RBC Morphology Polychromasia Hypochromasia Basophilic Stippling Anisocytosis Microcytosis Macrocytosis Spherocytes Sickle Cells Target Cells Tear Drop Cells Ovalocytes Stomatocytes [place] Bodies Jackson Cells Bite Cells Crenated Cell Acanthocytes (Spur) Rouleaux Schistocytes Sodium Potassium Chloride Carbon Dioxide Anion Gap BUN Creatinine Estim Creat Clear Calc Est GFR (MDRD) Af Amer Est GFR (MDRD) Non-Af BUN/Creatinine Ratio Glucose Calcium Troponin I High Sens 07/25/24 07/25/24 07/25/24 20:32 20:32 20:32 WBC Corrected WBC RBC Hgb Hct MCV MCH MCHC RDW Std Deviation RDW Coeff of Sheryl Plt Count MPV Immature Gran % (Auto) Cancelled Neut % (Auto) 59.3 Cancelled Lymph % (Auto) 29.8 Cancelled Brown % (Auto) 8.4 Eos % (Auto) Baso % (Auto) Absolute Neuts (auto) Absolute Lymphs (auto) Total Counted Neutrophils % (Manual) Band Neutrophils % Lymphocytes % (Manual) Monocytes % (Manual) Eosinophils % (Manual) Basophils % (Manual) Metamyelocytes % Myelocytes % Promyelocytes % Blast Cells % Plasma Cell % (Manual) Other Cells % Nucleated RBC % Nucleated RBCs/100 WBC Differential Comment Diff Path Review Hypersegmented Neuts Atypical Lymphocytes Reactive Lymphocytes Smudge Cells Toxic Granulation Toxic Vacuolation Dohle Bodies Zachariah Rods Platelet Estimate Plt Morphology Comment RBC Morphology Polychromasia Hypochromasia Basophilic Stippling Anisocytosis Microcytosis Macrocytosis Spherocytes Sickle Cells Target Cells Tear Drop Cells Ovalocytes Stomatocytes [place] Bodies Isaac Cells Bite Cells Crenated Cell Acanthocytes (Spur) Rouleaux Schistocytes Sodium Potassium Chloride Carbon Dioxide Anion Gap BUN Creatinine Estim Creat Clear Calc Est GFR (MDRD) Af Amer Est GFR (MDRD) Non-Af BUN/Creatinine Ratio Glucose Calcium Troponin I High Sens 07/25/24 07/25/24 07/25/24 20:32 20:32 20:32 WBC Corrected WBC RBC Hgb Hct MCV MCH MCHC RDW Std Deviation RDW Coeff of Sheryl Plt Count MPV Immature Gran % (Auto) Neut % (Auto) Lymph % (Auto) Brown % (Auto) Cancelled Eos % (Auto) 1.3 Cancelled Baso % (Auto) 0.5 Cancelled Absolute Neuts (auto) 6.0 Absolute Lymphs (auto) Total Counted Neutrophils % (Manual) Band Neutrophils % Lymphocytes % (Manual) Monocytes % (Manual) Eosinophils % (Manual) Basophils % (Manual) Metamyelocytes % Myelocytes % Promyelocytes % Blast Cells % Plasma Cell % (Manual) Other Cells % Nucleated RBC % Nucleated RBCs/100 WBC Differential Comment Diff Path Review Hypersegmented Neuts Atypical Lymphocytes Reactive Lymphocytes Smudge Cells Toxic Granulation Toxic Vacuolation Dohle Bodies Zachariah Rods Platelet Estimate Plt Morphology Comment RBC Morphology Polychromasia Hypochromasia Basophilic Stippling Anisocytosis Microcytosis Macrocytosis Spherocytes Sickle Cells Target Cells Tear Drop Cells Ovalocytes Stomatocytes [place] Bodies Isaac Cells Bite Cells Crenated Cell Acanthocytes (Spur) Rouleaux Schistocytes Sodium Potassium Chloride Carbon Dioxide Anion Gap BUN Creatinine Estim Creat Clear Calc Est GFR (MDRD) Af Amer Est GFR (MDRD) Non-Af BUN/Creatinine Ratio Glucose Calcium Troponin I High Sens 07/25/24 07/25/24 07/25/24 20:32 20:32 20:32 WBC Corrected WBC RBC Hgb Hct MCV MCH MCHC RDW Std Deviation RDW Coeff of Sheryl Plt Count MPV Immature Gran % (Auto) Neut % (Auto) Lymph % (Auto) Brown % (Auto) Eos % (Auto) Baso % (Auto) Absolute Neuts (auto) Cancelled Absolute Lymphs (auto) 3.00 Cancelled Total Counted Cancelled Neutrophils % (Manual) Cancelled Band Neutrophils % Cancelled Lymphocytes % (Manual) Cancelled Monocytes % (Manual) Cancelled Eosinophils % (Manual) Cancelled Basophils % (Manual) Cancelled Metamyelocytes % Cancelled Myelocytes % Cancelled Promyelocytes % Cancelled Blast Cells % Cancelled Plasma Cell % (Manual) Cancelled Other Cells % Cancelled Nucleated RBC % 0 Cancelled Nucleated RBCs/100 WBC Cancelled Differential Comment Cancelled Diff Path Review Cancelled Hypersegmented Neuts Cancelled Atypical Lymphocytes Cancelled Reactive Lymphocytes Cancelled Smudge Cells Cancelled Toxic Granulation Cancelled Toxic Vacuolation Cancelled Dohle Bodies Cancelled Zachariah Rods Cancelled Platelet Estimate Cancelled Plt Morphology Comment Cancelled RBC Morphology Cancelled Polychromasia Hypochromasia Basophilic Stippling Anisocytosis Microcytosis Macrocytosis Spherocytes Sickle Cells Target Cells Tear Drop Cells Ovalocytes Stomatocytes [place] Bodies Jackson Cells Bite Cells Crenated Cell Acanthocytes (Spur) Rouleaux Schistocytes Sodium Potassium Chloride Carbon Dioxide Anion Gap BUN Creatinine Estim Creat Clear Calc Est GFR (MDRD) Af Amer Est GFR (MDRD) Non-Af BUN/Creatinine Ratio Glucose Calcium Troponin I High Sens 07/25/24 07/25/24 20:32 20:50 WBC Corrected WBC RBC Hgb Hct MCV MCH MCHC RDW Std Deviation RDW Coeff of Sheryl Plt Count MPV Immature Gran % (Auto) Neut % (Auto) Lymph % (Auto) Brown % (Auto) Eos % (Auto) Baso % (Auto) Absolute Neuts (auto) Absolute Lymphs (auto) Total Counted Neutrophils % (Manual) Band Neutrophils % Lymphocytes % (Manual) Monocytes % (Manual) Eosinophils % (Manual) Basophils % (Manual) Metamyelocytes % Myelocytes % Promyelocytes % Blast Cells % Plasma Cell % (Manual) Other Cells % Nucleated RBC % Nucleated RBCs/100 WBC Differential Comment Diff Path Review Hypersegmented Neuts Atypical Lymphocytes Reactive Lymphocytes Smudge Cells Toxic Granulation Toxic Vacuolation Dohle Bodies Zachariah Rods Platelet Estimate Plt Morphology Comment RBC Morphology Cancelled Polychromasia Cancelled Hypochromasia Cancelled Basophilic Stippling Cancelled Anisocytosis Cancelled Microcytosis Cancelled Macrocytosis Cancelled Spherocytes Cancelled Sickle Cells Cancelled Target Cells Cancelled Tear Drop Cells Cancelled Ovalocytes Cancelled Stomatocytes Cancelled [place] Bodies Cancelled Isaac Cells Cancelled Bite Cells Cancelled Crenated Cell Cancelled Acanthocytes (Spur) Cancelled Rouleaux Cancelled Schistocytes Cancelled Sodium 140 Cancelled Potassium 3.5 Cancelled Chloride 105 Cancelled Carbon Dioxide 29.0 Cancelled Anion Gap 6 Cancelled BUN 21 H Cancelled Creatinine 1.12 H Cancelled Estim Creat Clear Calc Cancelled Est GFR (MDRD) Af Amer 62 Cancelled Est GFR (MDRD) Non-Af 51 L Cancelled BUN/Creatinine Ratio 18.8 Cancelled Glucose 93 Cancelled Calcium 9.4 Cancelled Troponin I High Sens 1678 H* Cancelled Radiography Chest X-Ray - ED: 1 View, Read by ED Physician, Read by Radiologist and No Acute Disease Diagnostic Testing: Clinical Impression(s) from Imaging Studies Chest X-Ray 07/25/24 20:27 IMPRESSION: No radiographic evidence of acute cardiopulmonary disease Reading Location: [facility] EKG Initial EKG: Attestation: I personally reviewed and interpreted this EKG as follows: Interpretation: Sinus Rhythm (82) and S-T Elevation Comments: EKG was obtained. On my independent interpretation, it shows a normal sinus rhythm with a rate of 82. [place] interval, QRS interval, and QTc interval are within normal limits. There is [address] elevation in leads I and aVL. There is some mild ST depression in leads III and aVF. There is borderline left axis deviation at -14. Prior EKG tracings: available for review Prior: Changed (The ST elevation is new compared to EKG from stress test on 04/03/2024.) Management Discussion w/another healthcare provider: Hospitalist and Product Responsibility Liaison Treatment and Re-Evaluation :: STEMI alert was called. Patient was given aspirin and sublingual nitroglycerin. Patient was also given Brilinta and heparin. Case was discussed with Dr. Mills. The EKG was texted to him at 20:42. Patient was taken to Aging Room [facility]. Patient will be admitted to the hospital after this. Critical Care Time Critical Care Time: Yes Critical care time (excluding procedures): 30-74 minutes (31), Including time spent:, Discussing w/Patient &/or Family/Director Of Special Education, Discussing w/Consultants, Arranging Admission or Transfer and Performing Direct Patient Care at Bedside Discharge Plan Dx/Rx/DC Orders Clinical Impression: Acute ST elevation myocardial infarction (STEMI), Hypertension Disposition Disposition: Acute Care Hospital [facility]
[2024-07-25] MEDS: Nitroglycerin SL (ED/IMG/CATH) 0.4 MG TABLET SL (21:00)
[2024-07-25] MEDS: TICAGRELOR 90 MG TABLET 180 MG PO (21:04)
[2024-07-25] MEDS: Heparin Injection (Vial) 5,000 UNIT/ML VIAL 4000 UNIT IV (21:05)
--- NOTE | 2024-07-25 21:12 | PCM.HP.STD ---
HPI - General General Date of Admission: 07/25/24 Date of Service: 07/25/24 Chief Complaint: Chest pain, dyspnea, nausea HPI Narrative The patient is a 68 y/o F w/ PMHx: CKD stage III unclear subtype per GFR trending, GERD, HTN, Obesity, OA who presents to the [facility] ED on 07/25/24 with history of onset the evening prior while attempting to get in bed midsternal chest discomfort described as a Antoni truck sitting on her chest with associated dyspnea, diaphoresis, radiation toward bilateral jaw as well as toward her back with associated nausea without emesis and no specific diaphoresis which continued but waxed and waned at its worst 10 out of 10 but never resolved and worsened over the day prompting eventual ED evaluation on day of presentation with upon arrival pain 10 out of 10 in severity. Workup in the ED included T98.2, heart rate 74, BP initially 201/103, respiratory rate 18, 100% on room air with most recent repeat vitals BP 171/101, respiratory rate 18, 98% on 2 L nasal cannula, CBC with WBC 10.1, he 1 13.6, platelet 350 without marked shift, BMP with BUN/Cr 21/1.12, GFR 51, initial troponin 1678, chest x-ray with no acute cardiopulmonary findings, EKG with sinus rhythm with ST elevations in the lateral leads with noted [address] elevations in 1 and aVL with mild ST depression in leads III and aVF changed when compared to previous EKG from stress testing 04/03/2024. In the ED patient ministered aspirin full-strength, heparin bolus and Brilinta load as well as sublingual nitroglycerin x 1. STEMI call was performed once EKG was obtained and ED physician discussed case with fugitive detective Dr. Mills. Patient was transition to the cardiac catheterization lab once ready alert performed. [facility] Medical History Obesity CKD (chronic kidney disease), stage III GERD (gastroesophageal reflux disease) Stress fracture, left tibia, initial encounter for fracture Right rotator cuff tear arthropathy Osteoporosis GERD (gastroesophageal reflux disease) Wears glasses Arthritis Back pain Restless legs Migraine headache Non-smoker Chronic neck and back pain Frequent headaches Hypertension Medical History no medical history Home Medications ?Medication ?Instructions ?Recorded ?Last Taken ?Type lisinopril 40 mg tablet 40 mg PO DAILY 02/06/19 07/24/24 History hydrochlorothiazide 25 mg tablet 25 mg PO DAILY 03/10/21 07/24/24 History ascorbic acid (vitamin C) 1,000 mg 1 g PO DAILY 05/13/23 07/24/24 History capsule ncxczag-wwoccqseuyita-gecthpoy 250 1 tab PO ONCE PRN migraine 05/13/23 07/25/24 History mg-250 mg-65 mg tablet (Excedrin Migraine) cholecalciferol (vitamin D3) 25 25 mcg PO DAILY 05/13/23 07/24/24 History mcg (1,000 unit) capsule esomeprazole magnesium 20 mg 20 mg PO DAILY PRN acid reflux 05/13/23 07/25/24 History capsule,delayed release (Nexium) meloxicam 15 mg tablet 15 mg PO DAILY PRN pain 05/13/23 Unknown History vitamin B complex (B 1 tab PO DAILY 05/13/23 07/24/24 History Complex-Vitamin B12 tablet) Allergy/AdvReac Type Severity Reaction Status Date / Time influenza virus vaccine ts AdvReac Swelling Verified 07/25/24 20:25 [id number] (36 mos,up) (From [facility]) Family History Uncle Diabetes Heart disease Colon cancer Aunt Diabetes Heart disease Daughter Diabetes Grandmother Heart disease CVA (cerebral vascular accident) Mother Skin cancer Other Hypertension other (Patient does not know her father or her paternal family history.) Surgical History History of colonoscopy History of removal of skin mole S/P LASIK surgery of both eyes History of lumpectomy of left breast History of tonsillectomy History of lymph node excision History of repair of right rotator cuff History of hysterectomy Social History (Updated 07/25/24 @ 22:[address] Humera Alexander MD) household members: none Smoking Status: Never smoker alcohol intake: never substance use type: does not use ROS ROS Narrative Admission Review of Systems: CONSTITUTIONAL: No weight loss, fever, chills, + weakness or fatigue. HEENT: Eyes: No visual loss, blurred vision, double vision or yellow sclerae. Ears, Nose, Throat: No hearing loss, sneezing, congestion, runny nose or sore throat. SKIN: No rash or itching, lesions, wounds. CARDIOVASCULAR: + Chest pain. No palpitations, edema, orthopnea, syncopal events. RESPIRATORY: + Dyspnea. No cough or sputum, wheezing, hemoptysis. GASTROINTESTINAL: + Anorexia, nausea. No vomiting or diarrhea, abdominal pain, melena, BRBPR. GENITOURINARY: No dysuria, frequency, urgency or retention. NEUROLOGICAL: + Chronic headaches. No dizziness, syncope, paralysis, ataxia, numbness or tingling in the extremities, focal weakness, change in bowel or bladder control, seizure. MUSCULOSKELETAL: + muscle, back pain, joint pain or stiffness. HEMATOLOGIC: No anemia, bleeding or bruising. LYMPHATICS: No enlarged nodes. No history of splenectomy. PSYCHIATRIC: No history of depression or anxiety. ENDOCRINOLOGIC: No reports of sweating, cold or heat intolerance. No polyuria or polydipsia. ALLERGIES: No history of asthma, hives, eczema or rhinitis. Vital Signs Vital Signs Vital Signs: 07/25/24 20:25 07/25/24 20:27 07/25/24 20:39 Temperature 98.2 F Temperature Source Oral Pulse Rate 74 Respiratory Rate 18 Respiratory Effort Blood Pressure 201/103 H Blood Pressure Mean 135 Pulse Ox 100 98 Oxygen Delivery Method Room Air Nasal Cannula Nasal Cannula Oxygen Flow Rate (L/min) 2 2 07/25/24 20:42 07/25/24 21:00 Temperature Temperature Source Pulse Rate 77 Respiratory Rate Respiratory Effort Normal Blood Pressure 171/101 H Blood Pressure Mean Pulse Ox Oxygen Delivery Method Oxygen Flow Rate (L/min) Physical Exam Narrative Physical Examination: General: Awake, alert, oriented x 3 and cooperative, seated upright in bed, uncomfortable appearing, initial evaluation with reported 10 out of 10 chest discomfort. Skin: Normal color, normal turgor, no icterus, no cyanosis. HEENT: AT/NC, EOMI, PERRLA, mildly dry MM, no carotid bruits or JVD noted. Lungs: CTA bilaterally, moderate effort, mild decrease BL bases, no rales, ronchi or wheezing. Heart: Regular rate and rhythm; no gallop, rub audible. Abdomen: Soft, obese, NTTP, ND, distant normal BS, no appreciated HSM. Extremities: No cyanosis, no clubbing, mild ankle not markedly pitting edema noted. Neurological: Patient awake, alert, oriented as noted, cognitive function intact; pupils equally reactive to light and accommodation, cranial nerves gross normal, moving all 4 extremities, no focal deficits, strength globally decreased given acute presentation with severe ongoing persistent chest discomfort. Psychiatric: Affect appears uncomfortable, no acute evidence of depressive or anxiety feelings. Results Lab / Micro Data 07/25/24 20:32 07/25/24 20:32 Labs: Laboratory Results - last 24 hr 07/25/24 20:32: WBC 10.1 07/25/24 20:32: WBC Cancelled, Corrected WBC Cancelled, RBC 4.32 07/25/24 20:32: RBC Cancelled, Hgb 13.6 07/25/24 20:32: Hgb Cancelled, Hct 40.9 07/25/24 20:32: Hct Cancelled, MCV 94.7 07/25/24 20:32: MCV Cancelled, MCH 31.5 07/25/24 20:32: MCH Cancelled, MCHC 33.3 07/25/24 20:32: MCHC Cancelled, RDW Std Deviation 44.9 H 07/25/24 20:32: RDW Std Deviation Cancelled, RDW Coeff of Sheryl 13.0 07/25/24 20:32: RDW Coeff of Sheryl Cancelled, Plt Count 315 07/25/24 20:32: Plt Count Cancelled, MPV 9.5 07/25/24 20:32: MPV Cancelled, Immature Gran % (Auto) 0.700 07/25/24 20:32: Immature Gran % (Auto) Cancelled, Neut % (Auto) 59.3 07/25/24 20:32: Neut % (Auto) Cancelled, Lymph % (Auto) 29.8 07/25/24 20:32: Lymph % (Auto) Cancelled, [place] % (Auto) 8.4 07/25/24 20:32: [place] % (Auto) Cancelled, Eos % (Auto) 1.3 07/25/24 20:32: Eos % (Auto) Cancelled, Baso % (Auto) 0.5 07/25/24 20:32: Baso % (Auto) Cancelled, Absolute Neuts (auto) 6.0 07/25/24 20:32: Absolute Neuts (auto) Cancelled, Absolute Lymphs (auto) 3.00 07/25/24 20:32: Absolute Lymphs (auto) Cancelled, Total Counted Cancelled, Neutrophils % (Manual) Cancelled, Band Neutrophils % Cancelled, Lymphocytes % (Manual) Cancelled, Monocytes % (Manual) Cancelled, Eosinophils % (Manual) Cancelled, Basophils % (Manual) Cancelled, Metamyelocytes % Cancelled, Myelocytes % Cancelled, Promyelocytes % Cancelled, Blast Cells % Cancelled, Plasma Cell % (Manual) Cancelled, Other Cells % Cancelled, Nucleated RBC % 0 07/25/24 20:32: Nucleated RBC % Cancelled, Nucleated RBCs/100 WBC Cancelled, Differential Comment Cancelled, Diff Path Review Cancelled, Hypersegmented Neuts Cancelled, Atypical Lymphocytes Cancelled, Reactive Lymphocytes Cancelled, Smudge Cells Cancelled, Toxic Granulation Cancelled, Toxic Vacuolation Cancelled, Dohle Bodies Cancelled, Zachariah Rods Cancelled, Platelet Estimate Cancelled, Plt Morphology Comment Cancelled, RBC Morphology Cancelled 07/25/24 20:32: RBC Morphology Cancelled, Polychromasia Cancelled, Hypochromasia Cancelled, Basophilic Stippling Cancelled, Anisocytosis Cancelled, Microcytosis Cancelled, Macrocytosis Cancelled, Spherocytes Cancelled, Sickle Cells Cancelled, Target Cells Cancelled, Tear Drop Cells Cancelled, Ovalocytes Cancelled, Stomatocytes Cancelled, Rubalcava-Zurich Bodies Cancelled, Isaac Cells Cancelled, Bite Cells Cancelled, Crenated Cell Cancelled, Acanthocytes (Spur) Cancelled, Rouleaux Cancelled, Schistocytes Cancelled 07/25/24 20:50: Sodium Cancelled, Potassium Cancelled, Chloride Cancelled, Carbon Dioxide Cancelled, Anion Gap Cancelled, BUN Cancelled, Creatinine Cancelled, Estim Creat Clear Calc Cancelled, Est GFR (MDRD) Af Amer Cancelled, Est GFR (MDRD) Non-Af Cancelled, BUN/Creatinine Ratio Cancelled, Glucose Cancelled, Calcium Cancelled, Troponin I High Sens Cancelled Imaging Radiology Impression Chest X-Ray 07/25/24 20:27 IMPRESSION: No radiographic evidence of acute cardiopulmonary disease Reading Location: [facility] Assessment & Plan Assessment/Plan (1) Acute ST elevation myocardial infarction (STEMI): PLAN: Plan The patient is a 68 y/o F w/ PMHx: CKD stage III unclear subtype per GFR trending, GERD, HTN, Obesity, OA who presents to the [facility] ED on 07/25/24 with history of onset the evening prior while attempting to get in bed midsternal chest discomfort described as a Antoni truck sitting on her chest with associated dyspnea, diaphoresis, radiation toward bilateral jaw as well as toward her back with associated nausea without emesis and no specific diaphoresis which continued but waxed and waned at its worst 10 out of 10 but never resolved and worsened over the day prompting eventual ED evaluation on day of presentation with upon arrival pain 10 out of 10 in severity. #1. Chest Pain w/ Acute Lateral STEMI: ED evaluation with initial troponin 1678, chest x-ray with no acute cardiopulmonary findings, EKG with sinus rhythm with ST elevations in the lateral leads with noted [address] elevations in 1 and aVL with mild ST depression in leads III and aVF changed when compared to previous EKG from stress testing 04/03/2024 Following cardiac catheterization intervention with Dr. Mills, will transition to the ICU, maintain on a monitored bed, repeat EKGs per cardiology discretion. Obtain magnesium level upon admission. Administered heparin bolus, Brilinta load and full-strength aspirin in the ED. Will continue medical management w/ asa, Plavix per cardiology request, Coreg low-dose per cardiology request, continue home ACEI, add high-dose statin w/ AM FLP. ECHO requested. #2. Hypertension: Continue home regimen including lisinopril, adding low-dose Coreg per cardiology discussions, hydrochlorothiazide, PRN hydralazine. If necessary may hold or d/c HCTZ in preference of her ACEI/BB addition. #3. Chronic Kidney Disease Stage III, unclear subtype per GFR trend: Admission BUN/Cr 21/1.12, GFR 51, baseline renal function 1.1, repeat BMP in AM. #4. Obesity: Weight loss and lifestyle changes encouraged. #5. GERD: Continue patient on PPI. #6. DVT prophylaxis: Lovenox to start in AM, heparin bolus initiated in the ED per STEMI protocol. #7. CODE status: Patient HCPOA and living will are not in place but she notes her daughter Akosua Morrissey would be her medical decision-maker if necessary. Discussed CODE status at length including difference between FULL code, DNR-CCA and DNR-CC status. Following discussions about the differences in these status, requested Full Code status. Advanced Care Planning Face to Face Time: 16 minutes. Charges/Coding Visit Charges Inpatient E&M: 16560 Init Hosp L3 Procedures Hospitalists Procedures: 49430 Advncd Care Plan 30 Min
[2024-07-25 21:13] LABS: Anion Gap 6 (5-15); BUN 21 mg/dL (7-18); BUN/Creat Ratio 18.8 RATIO (10-20); Calcium,Total 9.4 mg/dL (8.5-10.1); Chloride 105 mmol/L (98-107); Creatinine, Serum 1.12 mg/dL (0.55-1.02); EST Glomerular Filtration Rate 51 mL/min (>60); Est Glom Filt Rate - Afr Amer 62 mL/min (>60); Glucose 93 mg/dL (74-106); Potassium 3.5 mmol/L (3.5-5.1); Sodium Level 140 mmol/L (136-145); Troponin-I HS (w/2H Reflex) 1678 pg/mL (3.0-54.0)
--- NOTE | 2024-07-25 21:24 | ED.RN ---
Report called to ICU
[2024-07-25 22:37] LABS: Reflex Troponin-HS? (from REC) Y
[2024-07-25 22:39] LABS: International Normalized Ratio 0.9; Prothrombin Time (Protime)PT. 12.4 SECONDS (11.7-14.9)
[2024-07-25 22:40] LABS: Partial Thromboplast Time 26.6 Seconds (24.1-36.2)
--- NOTE | 2024-07-25 22:49 | PCM.CONS.C ---
Assessment & Plan Assessment/Plan (1) Acute ST elevation myocardial infarction (STEMI): PLAN: STEMI alert was called. Patient was taken emergently to the cardiac catheterization lab after obtaining informed consent. Coronary angiography revealed total occlusion of the mid left anterior descending artery. Successful percutaneous revascularization was performed with balloon angioplasty and placement of 3 drug-eluting stents. EARL-3 flow was restored. Integrilin infusion for 6 hours. Continue aspirin lifelong. P2 Y12 inhibitor for at least 6 months. (2) Coronary artery disease: PLAN: See #1 above. Aspirin, Plavix, beta-blockers, statins. 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 Beta-blockers, ACEI, spironolactone, SGLT2 inhibitors. (4) Hypertension: PLAN: Furosemide, carvedilol, ACEI, spironolactone. HPI Consult Data Date of Consult: 07/25/24 HPI Narrative Reason for Consultation: STEMI HPI Narrative: This lady has past medical history significant for hypertension. She presented to the emergency room with complaints of anterior chest discomfort radiating to both arms and to the jaw along with dyspnea and diaphoresis. According to her, the symptoms started the night before. She went to sleep with it and then woke up with the discomfort. Her symptoms waxed and waned throughout the day today and became worse around 3 PM in the afternoon. She presented to the emergency room a little after 8 PM. ECG done in the emergency room showed ST elevations in high lateral leads consistent with an ST elevation myocardial infarction. Subsequently a STEMI alert was called. [facility] Medical History Obesity CKD (chronic kidney disease), stage III GERD (gastroesophageal reflux disease) Stress fracture, left tibia, initial encounter for fracture Right rotator cuff tear arthropathy Osteoporosis GERD (gastroesophageal reflux disease) Wears glasses Arthritis Back pain Restless legs Migraine headache Non-smoker Chronic neck and back pain Frequent headaches Hypertension Medical History no medical history Home Medications ?Medication ?Instructions ?Recorded ?Last Taken ?Type lisinopril 40 mg tablet 40 mg PO DAILY 02/06/19 07/24/24 History hydrochlorothiazide 25 mg tablet 25 mg PO DAILY 03/10/21 07/24/24 History ascorbic acid (vitamin C) 1,000 mg 1 g PO DAILY 05/13/23 07/24/24 History capsule ohtefna-tpoobnklcgasz-vilpaxwt 250 1 tab PO ONCE PRN migraine 05/13/23 07/25/24 History mg-250 mg-65 mg tablet (Excedrin Migraine) cholecalciferol (vitamin D3) 25 25 mcg PO DAILY 05/13/23 07/24/24 History mcg (1,000 unit) capsule esomeprazole magnesium 20 mg 20 mg PO DAILY PRN acid reflux 05/13/23 07/25/24 History capsule,delayed release (Nexium) meloxicam 15 mg tablet 15 mg PO DAILY PRN pain 05/13/23 Unknown History vitamin B complex (B 1 tab PO DAILY 05/13/23 07/24/24 History Complex-Vitamin B12 tablet) Allergy/AdvReac Type Severity Reaction Status Date / Time influenza virus vaccine ts AdvReac Swelling Verified 07/25/24 20:25 [id number] (36 mos,up) (From [facility]) Family History Uncle Diabetes Heart disease Colon cancer Aunt Diabetes Heart disease Daughter Diabetes Grandmother Heart disease CVA (cerebral vascular accident) Mother Skin cancer Other Hypertension Surgical History History of colonoscopy History of removal of skin mole S/P LASIK surgery of both eyes History of lumpectomy of left breast History of tonsillectomy History of lymph node excision History of repair of right rotator cuff History of hysterectomy Social History (Updated 07/25/24 @ 22:[address] Humera Alexander MD) household members: none Smoking Status: Never smoker alcohol intake: never substance use type: does not use Physical Exam Narrative Comfortable. No apparent distress. Heart sounds 1 and 2 noted. S3 gallop noted. Chest clear to auscultation bilaterally. Alert oriented x 3. No ankle edema. Risk Stratification Risk Stratification Applicable: No Objective Data Vital Signs: Vital Signs Temp Pulse Resp BP Pulse Ox O2 Del Method O2 Flow Rate 98.2 F 77 18 171/101 H 98 Nasal Cannula 2 07/25/24 20:25 07/25/24 21:00 07/25/24 20:40 07/25/24 21:00 07/25/24 20:27 07/25/24 20:39 07/25/24 20:39 Oxygen Flow Rate (L/min) 2 Oxygen Delivery Method Nasal Cannula Lab / Micro Data Attestation: I reviewed the patient's lab results. 07/25/24 20:32 07/25/24 20:32 Labs: Laboratory Results - last 24 hr 07/25/24 20:32: WBC 10.1 07/25/24 20:32: WBC Cancelled, Corrected WBC Cancelled, RBC 4.32 07/25/24 20:32: RBC Cancelled, Hgb 13.6 07/25/24 20:32: Hgb Cancelled, Hct 40.9 07/25/24 20:32: Hct Cancelled, MCV 94.7 07/25/24 20:32: MCV Cancelled, MCH 31.5 07/25/24 20:32: MCH Cancelled, MCHC 33.3 07/25/24 20:32: MCHC Cancelled, RDW Std Deviation 44.9 H 07/25/24 20:32: RDW Std Deviation Cancelled, RDW Coeff of Sheryl 13.0 07/25/24 20:32: RDW Coeff of Sheryl Cancelled, Plt Count 315 07/25/24 20:32: Plt Count Cancelled, MPV 9.5 07/25/24 20:32: MPV Cancelled, Immature Gran % (Auto) 0.700 07/25/24 20:32: Immature Gran % (Auto) Cancelled, Neut % (Auto) 59.3 07/25/24 20:32: Neut % (Auto) Cancelled, Lymph % (Auto) 29.8 07/25/24 20:32: Lymph % (Auto) Cancelled, [place] % (Auto) 8.4 07/25/24 20:32: [place] % (Auto) Cancelled, Eos % (Auto) 1.3 07/25/24 20:32: Eos % (Auto) Cancelled, Baso % (Auto) 0.5 07/25/24 20:32: Baso % (Auto) Cancelled, Absolute Neuts (auto) 6.0 07/25/24 20:32: Absolute Neuts (auto) Cancelled, Absolute Lymphs (auto) 3.00 07/25/24 20:32: Absolute Lymphs (auto) Cancelled, Total Counted Cancelled, Neutrophils % (Manual) Cancelled, Band Neutrophils % Cancelled, Lymphocytes % (Manual) Cancelled, Monocytes % (Manual) Cancelled, Eosinophils % (Manual) Cancelled, Basophils % (Manual) Cancelled, Metamyelocytes % Cancelled, Myelocytes % Cancelled, Promyelocytes % Cancelled, Blast Cells % Cancelled, Plasma Cell % (Manual) Cancelled, Other Cells % Cancelled, Nucleated RBC % 0 07/25/24 20:32: Nucleated RBC % Cancelled, Nucleated RBCs/100 WBC Cancelled, Differential Comment Cancelled, Diff Path Review Cancelled, Hypersegmented Neuts Cancelled, Atypical Lymphocytes Cancelled, Reactive Lymphocytes Cancelled, Smudge Cells Cancelled, Toxic Granulation Cancelled, Toxic Vacuolation Cancelled, Dohle Bodies Cancelled, Zachariah Rods Cancelled, Platelet Estimate Cancelled, Plt Morphology Comment Cancelled, RBC Morphology Cancelled 07/25/24 20:32: RBC Morphology Cancelled, Polychromasia Cancelled, Hypochromasia Cancelled, Basophilic Stippling Cancelled, Anisocytosis Cancelled, Microcytosis Cancelled, Macrocytosis Cancelled, Spherocytes Cancelled, Sickle Cells Cancelled, Target Cells Cancelled, Tear Drop Cells Cancelled, Ovalocytes Cancelled, Stomatocytes Cancelled, Rubalcava-[place] Bodies Cancelled, [place] Cells Cancelled, Bite Cells Cancelled, Crenated Cell Cancelled, Acanthocytes (Spur) Cancelled, Rouleaux Cancelled, Schistocytes Cancelled, PT 12.4, INR 0.9, APTT 26.6, Sodium 140, Potassium 3.5, Chloride 105, Carbon Dioxide 29.0, Anion Gap 6, BUN 21 H, Creatinine 1.12 H, Est GFR (MDRD) Af Amer 62, Est GFR (MDRD) Non-Af 51 L, BUN/Creatinine Ratio 18.8, Glucose 93, Calcium 9.4, Troponin I High Sens 1678 H* 07/25/24 20:50: Sodium Cancelled, Potassium Cancelled, Chloride Cancelled, Carbon Dioxide Cancelled, Anion Gap Cancelled, BUN Cancelled, Creatinine Cancelled, Estim Creat Clear Calc Cancelled, Est GFR (MDRD) Af Amer Cancelled, Est GFR (MDRD) Non-Af Cancelled, BUN/Creatinine Ratio Cancelled, Glucose Cancelled, Calcium Cancelled, Troponin I High Sens Cancelled Rhythm Strip Rhythm Strip: Sinus Rhythm Cardiology Labs/Tests 07/25/24 20:32: WBC 10.1 07/25/24 20:32: WBC Cancelled, Corrected WBC Cancelled, RBC 4.32 07/25/24 20:32: RBC Cancelled, Hgb 13.6 07/25/24 20:32: Hgb Cancelled, Hct 40.9 07/25/24 20:32: Hct Cancelled, MCV 94.7 07/25/24 20:32: MCV Cancelled, MCH 31.5 07/25/24 20:32: MCH Cancelled, MCHC 33.3 07/25/24 20:32: MCHC Cancelled, Plt Count 315 07/25/24 20:32: Plt Count Cancelled, MPV 9.5 07/25/24 20:32: MPV Cancelled, Immature Gran % (Auto) 0.700 07/25/24 20:32: Immature Gran % (Auto) Cancelled, Neut % (Auto) 59.3 07/25/24 20:32: Neut % (Auto) Cancelled, Lymph % (Auto) 29.8 07/25/24 20:32: Lymph % (Auto) Cancelled, [place] % (Auto) 8.4 07/25/24 20:32: [place] % (Auto) Cancelled, Eos % (Auto) 1.3 07/25/24 20:32: Eos % (Auto) Cancelled, Baso % (Auto) 0.5 07/25/24 20:32: Baso % (Auto) Cancelled, Absolute Neuts (auto) 6.0 07/25/24 20:32: Absolute Neuts (auto) Cancelled, Total Counted Cancelled, Neutrophils % (Manual) Cancelled, Band Neutrophils % Cancelled, Lymphocytes % (Manual) Cancelled, Monocytes % (Manual) Cancelled, Eosinophils % (Manual) Cancelled, Basophils % (Manual) Cancelled, Metamyelocytes % Cancelled, Myelocytes % Cancelled, Promyelocytes % Cancelled, Blast Cells % Cancelled, Plasma Cell % (Manual) Cancelled, Other Cells % Cancelled, Nucleated RBC % 0 07/25/24 20:32: Nucleated RBC % Cancelled, PT 12.4, INR 0.9, APTT 26.6, Sodium 140, Potassium 3.5, Chloride 105, Carbon Dioxide 29.0, Anion Gap 6, BUN 21 H, Creatinine 1.12 H, Est GFR (MDRD) Af Amer 62, Est GFR (MDRD) Non-Af 51 L, BUN/Creatinine Ratio 18.8, Glucose 93, Calcium 9.4 07/25/24 20:50: Sodium Cancelled, Potassium Cancelled, Chloride Cancelled, Carbon Dioxide Cancelled, Anion Gap Cancelled, BUN Cancelled, Creatinine Cancelled, Est GFR (MDRD) Af Amer Cancelled, Est GFR (MDRD) Non-Af Cancelled, BUN/Creatinine Ratio Cancelled, Glucose Cancelled, Calcium Cancelled Rhythm: EKG: Sinus rhythm. ST elevations in 1 and aVL with reciprocal ST depressions in inferior leads. Poor R wave progression across anterior precordial leads. ECHO: Stress Test: Cardiac Cath: PCI: CT Surgery: Holter monitor: EPS: PPM: CXR: Chest CT Scan: Radiography Diagnostic Testing: Radiology Impression Chest X-Ray 07/25/24 20:27 IMPRESSION: No radiographic evidence of acute cardiopulmonary disease Reading Location: [facility]
--- NOTE | 2024-07-25 22:59 | ECHOCS_ITS ---
Reason For Study Reason For Study: STEMI Procedure This was a 2D Doppler, Color Flow transthoracic echocardiogram. The study was technically difficult. Contrast injection was performed. Exam performed portable in ICU/CCU. Left Ventricle Normal LV size. Mild concentric left ventricular hypertrophy. Mid to distal septal, anterior and apical severe hypokinesis to akinesis. Estimated LVEF 30-35%. Stage I diastolic dysfunction. Right Ventricle Normal right ventricle. Atria The left and right atria are normal. Mitral Valve Trivial mitral valve insufficiency. Tricuspid Valve Trivial tricuspid valve insufficiency. Normal pulmonary artery pressure. Aortic Valve Trisinus/trileaflet aortic valve. Mild diffuse aortic valve thickening. Pulmonic Valve The pulmonic valve is not well visualized. Great Vessels Normal sized aortic root. Pericardium/Pleural No pericardial effusion. Medication Diluted definity 2ml given slow IV push to enhance endocardial definition. MMode/2D Measurements & Calculations LVIDd: 4.6 cm IVSd: 1.3 cm LVOT diam: 1.9 cm LVIDs: 2.3 cm LVPWd: 0.99 cm RVDd: 3.0 cm FS: 49.7 % LVOT area: 2.8 cm2 LA dimension: 3.9 cm asc Aorta Diam: 3.7 cm LAV(MOD- bp): 35.4 ml LAV(MOD- bp) Indexed: 18.8 ml/m2 LAV(MOD- sp2): 41.1 ml LAV(MOD- sp4): 28.9 ml SV(MOD- sp4): 56.7 ml LVAd ap4: 36.7 cm2 LVAd ap2: 33.5 cm2 LVLd ap4: 8.5 cm LVLd ap2: 8.2 cm SI(MOD- sp4): 30.2 ml/m2 EDV(MOD-sp4): 127.0 ml EDV(MOD-sp2): 113.4 ml EDV(sp4-el): 134.0 ml EDV(sp2-el): 116.9 ml LVAs ap4: 26.3 cm2 LVAs ap2: 25.1 cm2 LVLs ap4: 7.8 cm LVLs ap2: 7.5 cm ESV(MOD-sp4): 70.3 ml ESV(MOD-sp2): 68.2 ml ESV(sp4-el): 74.8 ml ESV(sp2-el): 71.1 ml EF(MOD-sp4): 44.7 % EF(MOD-sp2): 39.8 % EF(sp4-el): 44.1 % SV(MOD-sp2): 45.2 ml SV(sp4-el): 59.1 ml Ao sinus diam: 3.3 cm SI(MOD-sp2): 24.1 ml/m2 Ao ST Junction: 2.7 cm LA dimension(2D): 3.8 cm LA A4 area: 12.9 cm2 RA A4 area: 8.4 cm2 TAPSE: 2.0 cm Time Measurements MV dec time: 0.16 sec Doppler Measurements & Calculations MV E max yuniel: 50.4 cm/sec Lat Peak E' Yuniel: 7.2 cm/sec Med Peak E' Yuniel: 6.9 cm/sec MV A max yuniel: 65.1 cm/sec E/E' lat: 7.0 E/E' med: 7.3 MV E/A: 0.77 Ao V2 max: 127.1 cm/sec LV V1 max: 90.7 cm/sec MV dec slope: 313.7 cm/sec2 Ao max P.5 mmHg LV V1 max P.3 mmHg Ao V2 mean: 106.1 cm/sec LV V1 mean P.8 mmHg Ao mean P.6 mmHg LV V1 mean: 62.6 cm/sec Ao V2 VTI: 31.2 cm LV V1 VTI: 20.7 cm AV (velocity ratio): 0.66 GABINO(I,D): 1.9 cm2 GABINO(V,D): 2.0 cm2 SV(LVOT): 57.7 ml PA V2 max: 73.3 cm/sec TR max yuniel: 213.5 cm/sec TR max P.2 mmHg ECHO/Echo Complete W/ Contrast Interpretation Summary Mild concentric left ventricular hypertrophy. Mid to distal septal, anterior and apical severe hypokinesis to akinesis. Estim ated LVEF 30-35%. Stage I diastolic dysfunction. Ordering Physician: Humera Alexander Referring Physician: Toribio Chapa MD Performed By: Olivia Cabello RDCS
[2024-07-25] MEDS: EPTIFIBATIDE 75 MG/100 ML VIAL 14 MG CONT INF (23:00)
--- NOTE | 2024-07-25 23:11 | CL.I_ITS ---
Patient Name: SWAPNIL MENJIVAR Study Date: 07/25/2024 Performing: Olivia Mills MD Ht: 62 inches 157.48 cm : 1955 Wt: 190.2 lbs 86.18 kg Age: 68 Gender: female BSA: 1.87 PROCEDURE(S) PERFORMED DC01-(70535)LHC/COR/LV IC16-([id number])AMI, JOHN OR PTCA, ARTERY/GRAFT, SINGLE VESSEL CLINICAL PROFILE AND CO-MORBIDITIES Indications: ACS <= 24 hrs Heart Failure: None CAD Presentations: STEMI. Symptom onset Date/Time: 07/24/2024 Time Not Available CONCLUSIONS 100% Mid LAD with thrombus Mild RCA/LCX disease LVEF 30% with apical dyskinesis RECOMMENDATIONS ASA Indefinitley P2Y12 inhibitors for atleast 6 months DESCRIPTION OF PROCEDURE The patient arrived to the procedure lab. The risks and benefits of the procedure as well as a full description of our services here and lack of surgical backup were fully explained to the patient and/or their significant other prior to the catheterization. The Timeout was completed, verifying the correct patient and procedure. The patient's procedural site was prepped and draped in the usual fashion. Local anesthetic was given subcutaneously to right radial region with Lidocaine 2%. Using a modified Seldinger technique, arterial access was obtained via the right radial artery, a 6Fr sheath was inserted.. Right Coronary Artery selective angiography was then performed in multiple views using a 5 Fr. JR 4 catheter. Left Ventriculography was performed in TEE projection using a 5 Fr. Pigtail catheter. LV to AO pullback pressures were then recorded XB 3.0 Guide catheter was inserted and engaged into the LCA. Runthrough Guide wire was advanced to the LAD. Emerge 2.50x15 Balloon catheter was inserted. PTCA balloon inflated at 6 atms for 6 secs. PTCA balloon inflated at 6 atms for 47 secs. PTCA balloon inflated at 6 atms for 7 secs. PTCA balloon inflated at 6 atms for 6 secs. Angiogram performed post balloon dilatation. Payne Andreea 2.5x38 Drug Eluting stent was inserted. Angiogram performed post stent deployment. Payne [place] 2.25x15 Drug Eluting stent was inserted. Angiogram performed post stent deployment. NC Emerge 2.50x20 Balloon catheter was inserted. Angiogram performed post balloon dilatation. Nc Emerge 3.00x12 Balloon catheter was inserted. Angiogram performed post balloon dilatation. Payne [place] 2.25x12 Drug Eluting stent was inserted. Drug Eluting stent was removed intact, failed to cross lesion Payne Andreea 2.0x18 Drug Eluting stent was inserted. Angiogram performed post stent deployment. NC Emerge 2.50x20 Balloon catheter was inserted. Angiogram performed post balloon dilatation. NC Emerge 3.00 x12 Balloon catheter was inserted. Angiogram performed post balloon dilatation. The arterial sheath was pulled and a TR Band was applied for hemostasis CORONARY ANGIOGRAPHY DOMINANCE: Right Dominant LEFT HEART ASSESSMENT Left Ventricular Ejection Fraction: by LV Gram 30 % LVEDP: 41 mmHg LEFT MAIN: Angiographically normal LEFT ANTERIOR DESCENDING ARTERY: LAD: Thrombus 100% Mid lesion in LAD DIAGONAL 1: Tubular 40% Proximal lesion in DIAG1 OM 1: Tubular 20% Proximal lesion in MARG2 OM 2: Tubular 20% Proximal lesion in MARG2 RIGHT CORONARY ARTERY: RCA: Tubular 30% Distal lesion in RCA INTERVENTION INFORMATION LESION SITE: LAD (Mid) Lesion Complexity: High/C, chronic total occlusion: No, thrombus present: Yes, lesion length: 70 mm, culprit lesion: Yes Pre Stenosis: 100 % Pre intervention EARL flow: 0 PROCEDURE: Drug Eluting Stent with pre and post dilatation Post Stenosis: 0 % Post intervention EARL flow: 3 Lesion Devices: Terumo .014 180cm Runthrough Extra Floppy straight Cordis 6 Fr XB3.0 100cm Guide Catheter Jabier Sci EMERGE MR 2.50x15 BALLOON Medtronic 2.50 x 38 ANDREEA FRONTIER JOHN Medtronic 2.25 x 15 ANDREEA FRONTIER JOHN Jabier Sci NC EMERGE MR 2.50x20 BALLOON Jabier Sci NC EMERGE MR 3.00x12 BALLOON Medtronic 2.00 x 18 ANDREEA FRONTIER JOHN COMPLICATIONS No Complications PROCEDURE MEDICATIONS Versed 2 mg IV Fentanyl 50 mcg IV Oxygen: 2 L/min via nasal cannula Adenosine 48 mcg IC 07/25/2024 21:54:41 Adenosine 48 mcg IC 07/25/2024 21:54:41 Adenosine 48 mcg IC @ 07/25/2024 21:56:26 Heparin 5000 unit(s) IV 07/25/2024 21:27:37 Lasix 40 mg IV 07/25/2024 22:44:42 Nitro 200 mcg IC 07/25/2024 21:32:11 Nitro 200 mcg IC 07/25/2024 21:32:11 Nitro 200 mcg IC 07/25/2024 21:37:57 Nitro 200 mcg IC 07/25/2024 21:43:01 Nitro 200 mcg IC 07/25/2024 21:51:32 Nitro 200 mcg IC 07/25/2024 21:58:12 Verapamil 2.5mg, Ntg 200mcgs, given IA 07/25/2024 21:22:36 SUMMARY OF HEMODYNAMIC DATA Time AIR REST ECG 21:18:01 AO 156/101 (127) SA 21:24:30 AO 117/74 (95) 21:44:38 AO 140/86 (110) 21:49:51 AO 120/78 (97) 22:02:21 AO 137/86 (108) 22:09:05 AO 125/83 (103) 22:18:13 LV 146/21, 42 22:26:10 LV 137/24, 41 22:26:18 LV 130/31, 43 22:27:13 LV 133/32, 44 22:27:21 LVp 130/31, 43 22:27:26 AOp 126/82 (103) 22:27:33 Signed By Olivia Mills MD On 07/25/2024 23:10:53 Olivia Mills MD
[2024-07-25 23:14] LABS: ACT Activated Clotting Time 256 sec (74-137)
[2024-07-25 23:14] LABS: ACT Activated Clotting Time 285 sec (74-137)
[2024-07-25] MEDS: 0.9% Saline Lock 10 ML Syringe IV (23:31)
[2024-07-25] MEDS: 0.9% Normal Saline (1000mL) 1,000 ML 100 ML IV (23:32)
[2024-07-25] MEDS: Spironolactone 25 MG Tablet 12.5 MG PO (23:49)
[2024-07-25] MEDS: Atorvastatin Calcium 80 MG Tablet PO (23:49)
[2024-07-25] MEDS: Carvedilol 3.125 MG TABLET PO (23:49)
[2024-07-25] MEDS: MELATONIN 3 MG TABLET PO (23:53)
[2024-07-25 23:55] LABS: Troponin-I HS 7604 pg/mL (3.0-54.0)
[2024-07-26] VITALS (15 sets, daily range): BP systolic 119–142; BP diastolic 68–90; PULSE 59–84; RESP 15–23; TEMP 36.3–36.8; O2SAT 94–99; BMI 35.4
[2024-07-26 00:02] LABS: Magnesium 1.7 mg/dL (1.6-2.6)
[2024-07-26] MEDS: Acetaminophen 325 MG Tablet 650 MG PO (02:39)
[2024-07-26] MEDS: 0.9% Saline Lock 10 ML Syringe IV ×2 (02:40→04:53)
[2024-07-26] MEDS: Clopidogrel Bisulfate 300 MG Tablet PO (04:52)
[2024-07-26 05:16] LABS: Absolute Lymphocyte Count 1.61 X10^3/uL (0.83-4.51); Absolute Neutrophil Count 8.6 X10^3/uL (2.0-7.7); Basophil# 0.05 X10^3/uL; Basophil% 0.5 % (0-1); Eosinophil# 0.03 X10^3/uL; Eosinophils% 0.3 % (0-5); Hematocrit 35.6 % (37-47); Hemoglobin 12.1 g/dL (12.0-15.0); Lymphocyte # 1.61 X10^3/ul (0.83-4.51); Lymphocyte % 14.5 % (19-41); Mean Corpuscular Hgb 31.7 pg (27.0-32.0); Mean Corpuscular Volume 93.2 fL (81-99); Mean Platelet Vol. 9.6 fl (6.2-12.0); Monocyte# 0.79 X10^3/uL; Monocyte% 7.1 % (0-10); NRBC Flagged by Analyzer 0 % (0-5); Neutrophil # 8.55 X10^3/uL (2.7-7.7); Neutrophil % 77.1 % (47-70); Platelet Count 291 K/mm3 (150-450); RBC Distribution Width CV 13.2 % (11.6-14.6); RBC Distribution Width SD 44.8 fl (35.1-43.9); Red Blood Count 3.82 M/mm3 (4.2-5.4); White Blood Count 11.1 K/mm3 (4.4-11.0)
[2024-07-26 06:15] LABS: ALB/GLOB Ratio 1.2 RATIO (0.9-2.4); AST(SGOT) 65 U/L (15-37); Alanine Aminotransfer ALT/SGPT 29 U/L (13-56); Albumin, Serum 3.3 g/dL (3.2-5.0); Alkaline Phosphatase 81 U/L (45-117); Anion Gap 12 (5-15); BUN 24 mg/dL (7-18); BUN/Creat Ratio 25.9 RATIO (10-20); Calcium,Total 8.8 mg/dL (8.5-10.1); Chloride 104 mmol/L (98-107); Cholesterol 250 mg/dL (200); Creatinine, Serum 0.93 mg/dL (0.55-1.02); EST Glomerular Filtration Rate 63 mL/min (>60); Est Glom Filt Rate - Afr Amer 77 mL/min (>60); Estimated Creatinine Clearance 57.81 ml/min; Globulin 2.8 g/dL (2.2-4.2); Glucose 115 mg/dL (74-106); High Density Lipoprotein 65 mg/dL; Potassium 3.3 mmol/L (3.5-5.1); Protein, Total 6.1 g/dL (6.4-8.2); Sodium Level 140 mmol/L (136-145); Triglycerides 221 mg/dL; Troponin-I HS 16688 pg/mL (3.0-54.0); Very Low Density Lipoprotein 44 mg/dL (5-40)
[2024-07-26] MEDS: Lisinopril 10 MG Tablet PO (07:48)
[2024-07-26] MEDS: Aspirin E.C. 81 MG Tablet PO (07:48)
[2024-07-26] MEDS: Furosemide 40 MG Tablet PO (07:48)
[2024-07-26] MEDS: Enoxaparin 40 MG/0.4 ML Syringe SC (07:49)
[2024-07-26] MEDS: Carvedilol 3.125 MG TABLET PO ×2 (07:49→16:43)
[2024-07-26] MEDS: Spironolactone 25 MG Tablet 12.5 MG PO (07:49)
--- NOTE | 2024-07-26 08:04 | CRPHASE1_ITS ---
Patient Communication Patient Information Former Patient:: Phase I PHII Cardiac Rehab Discussed with Patient:: Yes Guide to Cardiac Rehab Given to Patient:: Yes Cardiac Rehab Facility Choice List Given to Patient:: Yes Communication to Cardiac Rehab Fluorescent Lamp Replacer:: Olivia Mills Sessions:: 36 sessions - 3 days/wk, 12 weeks Cardiac Rehabilitation Info Program Information Cardiac Rehabilitation Program Information: Cardiac Rehab The cardiac rehab team at [facility] consists of highly skilled exercise physiologists, nurses, respiratory therapists and physicians working together with you. Our purpose is to help you have a full recovery and achieve the goals you set for yourself. Over the years many of our patients have returned to activities they assumed they would never do again! We can help restore your confidence and motivation to make lifestyle changes that can have a significant impact on your health and quality of life! We can help answer questions and concerns you may have about exercise, lifestyle, medications, diet, stress and anxiety which are common following a hospitalization. WE monitor ECG and vital signs during exercise and discuss your progress with you and report to your physician(s). Cardiac Rehab is proven to help reduce readmissions, improve functional capacity and lower recurrence of problems with your heart. Our Cardiac Rehab program is Certified by the [place] [employer]io-Vascular and Pulmonary [employer] (AACVPR) and Accredited by the [place] [employer] through our [facility]. You can contact us at . We invite you to call us with your questions or to get started in our program. If you have other questions or concerns be sure to ask your physician/provider during your follow-up visit. WE look forward to seeing you!
--- NOTE | 2024-07-26 08:05 | CRPH1.INSTRU ---
General Education Discussed with Patient CAD and cardiac anatomy and function:: Patient communicates acknowledgment Explanation of diagnoses and procedures:: Patient communicates acknowledgment Sign/Symptoms of MA:: Patient communicates acknowledgment Antiplatelet therapy: Patient communicates acknowledgment Proper use of NTG-SL: Patient communicates acknowledgment Emergency procedures and activation of EMS: Patient communicates acknowledgment Compliance of all prescribed medications: Patient communicates acknowledgment Smoking Risk Factors Patient Nicotine/Smoking Risk Factors Are:: Never smoked Recommendations Recommendations Include:: Second-hand smoke recommendation Response Code Nicotine/Smoking Response Code:: Patient communicates acknowledgment Dyslipidemia Risk Factors Patient Dyslipidemia Risk Factors Are:: Total Cholesterol, Triglycerides, HDL and LDL Recommendations Recommendations Include:: Lipid profile not available, Reviewed NCEP/ATP guidelines and Therapeutic Lifestyle Change dietary guidelines Response Code Dyslipidemia Response Code:: Patient communicates acknowledgment Overweight/Obesity Risk Factors Patient Overweight/Obesity Risk Factors Are:: Obesity - > or = 30 Recommendations Recommendations Include:: Weight loss of 5-10%, Reduced calorie diet and Exercise 5-7 times/week Response Code Overweight/Obesity:: Patient communicates acknowledgment Hypertension Recommendations Recommendations Include:: DASH dietary guidelines, Decrease/maintain normal body weight and Moderation of ETOH Response Code Hypertension:: Patient communicates acknowledgment Heart Disease Recommendations Recommendations Include:: Educated family members of their risk and Educated family members of importance of prevention of heart disease Response Code Heart Disease Response Code:: Patient communicates acknowledgment Diabetes Risk Factors Patient Diabetes Risk Factors Are:: No documented hx of diabetes Recommendations Recommendations Include:: Maintain HgbA1c of 6% or less, Monitor blood sugar as prescribed, Diabetic dietary guidelines and Decrease/maintain body weight Response Code Diabetes:: Patient communicates acknowledgment Metabolic Syndrome Risk Factors Patient Metabolic Syndrome Risk Factors Are [3 of 5]:: Fasting blood sugar > 100 mg/dL, Waist circumference > 35 [female] or 40 [male], High triglyceride >150, Hypertension and Low HDL <40 [male] or < 50 [female] Recommendations Recommendations Include:: Does not meet criteria and Encouraged follow-up with Primary Care Physician Response Code Metabolic Syndrome Response Code:: Patient communicates acknowledgment Sedentary Risk Factors Patient Sedentary Risk Factors Are:: Lack of regular exercise Recommendations Recommendations Include:: Aerobic exercise 5-7 times/week for 20-30 minutes continuously, Benefits of regular exercise, Discussed home walking program and Monitored Outpatient Cardiac Rehab Response Code Sedentary Response Code:: Patient communicates acknowledgment Stress Risk Factors Patient Stress Risk Factors Are:: Patient denies stress as a risk factor Recommendations Recommendations Include:: Identification of stressors, and assessment of coping skills and Stress management techniques Response Code Stress Response Code:: Patient communicates acknowledgment
[2024-07-26 08:41] LABS: Phosphorus 3.8 mg/dL (2.5-4.9)
--- NOTE | 2024-07-26 08:42 | ECQM.STEMI ---
STEMI STEMI ED Door Time / Other REG STEMI EKG Time (1) Acute ST elevation myocardial infarction (STEMI): Acute 07/25/24 20:22 Balloon/Aspiration Date-Time Date of Balloon/Aspiration:: 07/25/24 Time of Balloon/Aspiration:: 21:29
--- NOTE | 2024-07-26 09:33 | PCM.PN.CARD ---
Subjective Subjective Sitting up in chair. Denies any complaints. No chest pains. No shortness of breath. Objective Data Vital Signs: Vital Signs Temp Pulse Resp BP Pulse Ox O2 Del Method O2 Flow Rate 97.3 F L 65 18 123/81 H 97 Room Air 2 07/26/24 07:00 07/26/24 09:00 07/26/24 09:00 07/26/24 09:00 07/26/24 09:00 07/26/24 09:00 07/25/24 20:39 Oxygen Flow Rate (L/min) 2 Oxygen Delivery Method Room Air Weight: 192 lb 14.472 oz Body Mass Index (BMI) 35.4 Intake & Output: Intake and Output for Last 24 Hours 07/24/24 07/25/24 07/26/24 23:59 23:59 23:59 Intake Total 80.5 / 80.5 Balance 80.5 / 80.5 Lab / Micro Data Attestation: I reviewed the patient's lab results. 07/26/24 05:04 07/26/24 05:04 Labs: Laboratory Results - last 24 hr 07/25/24 20:32: WBC 10.1 07/25/24 20:32: WBC Cancelled, Corrected WBC Cancelled, RBC 4.32 07/25/24 20:32: RBC Cancelled, Hgb 13.6 07/25/24 20:32: Hgb Cancelled, Hct 40.9 07/25/24 20:32: Hct Cancelled, MCV 94.7 07/25/24 20:32: MCV Cancelled, MCH 31.5 07/25/24 20:32: MCH Cancelled, MCHC 33.3 07/25/24 20:32: MCHC Cancelled, RDW Std Deviation 44.9 H 07/25/24 20:32: RDW Std Deviation Cancelled, RDW Coeff of Sheryl 13.0 07/25/24 20:32: RDW Coeff of Sheryl Cancelled, Plt Count 315 07/25/24 20:32: Plt Count Cancelled, MPV 9.5 07/25/24 20:32: MPV Cancelled, Immature Gran % (Auto) 0.700 07/25/24 20:32: Immature Gran % (Auto) Cancelled, Neut % (Auto) 59.3 07/25/24 20:32: Neut % (Auto) Cancelled, Lymph % (Auto) 29.8 07/25/24 20:32: Lymph % (Auto) Cancelled, [place] % (Auto) 8.4 07/25/24 20:32: [place] % (Auto) Cancelled, Eos % (Auto) 1.3 07/25/24 20:32: Eos % (Auto) Cancelled, Baso % (Auto) 0.5 07/25/24 20:32: Baso % (Auto) Cancelled, Absolute Neuts (auto) 6.0 07/25/24 20:32: Absolute Neuts (auto) Cancelled, Absolute Lymphs (auto) 3.00 07/25/24 20:32: Absolute Lymphs (auto) Cancelled, Total Counted Cancelled, Neutrophils % (Manual) Cancelled, Band Neutrophils % Cancelled, Lymphocytes % (Manual) Cancelled, Monocytes % (Manual) Cancelled, Eosinophils % (Manual) Cancelled, Basophils % (Manual) Cancelled, Metamyelocytes % Cancelled, Myelocytes % Cancelled, Promyelocytes % Cancelled, Blast Cells % Cancelled, Plasma Cell % (Manual) Cancelled, Other Cells % Cancelled, Nucleated RBC % 0 07/25/24 20:32: Nucleated RBC % Cancelled, Nucleated RBCs/100 WBC Cancelled, Differential Comment Cancelled, Diff Path Review Cancelled, Hypersegmented Neuts Cancelled, Atypical Lymphocytes Cancelled, Reactive Lymphocytes Cancelled, Smudge Cells Cancelled, Toxic Granulation Cancelled, Toxic Vacuolation Cancelled, Dohle Bodies Cancelled, Zachariah Rods Cancelled, Platelet Estimate Cancelled, Plt Morphology Comment Cancelled, RBC Morphology Cancelled 07/25/24 20:32: RBC Morphology Cancelled, Polychromasia Cancelled, Hypochromasia Cancelled, Basophilic Stippling Cancelled, Anisocytosis Cancelled, Microcytosis Cancelled, Macrocytosis Cancelled, Spherocytes Cancelled, Sickle Cells Cancelled, Target Cells Cancelled, Tear Drop Cells Cancelled, Ovalocytes Cancelled, Stomatocytes Cancelled, [place] Bodies Cancelled, Isaac Cells Cancelled, Bite Cells Cancelled, Crenated Cell Cancelled, Acanthocytes (Spur) Cancelled, Rouleaux Cancelled, Schistocytes Cancelled, PT 12.4, INR 0.9, APTT 26.6, Sodium 140, Potassium 3.5, Chloride 105, Carbon Dioxide 29.0, Anion Gap 6, BUN 21 H, Creatinine 1.12 H, Est GFR (MDRD) Af Amer 62, Est GFR (MDRD) Non-Af 51 L, BUN/Creatinine Ratio 18.8, Glucose 93, Calcium 9.4, Troponin I High Sens 1678 H* 07/25/24 20:50: Sodium Cancelled, Potassium Cancelled, Chloride Cancelled, Carbon Dioxide Cancelled, Anion Gap Cancelled, BUN Cancelled, Creatinine Cancelled, Estim Creat Clear Calc Cancelled, Est GFR (MDRD) Af Amer Cancelled, Est GFR (MDRD) Non-Af Cancelled, BUN/Creatinine Ratio Cancelled, Glucose Cancelled, Calcium Cancelled, Troponin I High Sens Cancelled 07/25/24 21:51: Activated Clotting Time 285 H 07/25/24 22:32: Activated Clotting Time 256 H 07/25/24 23:21: Magnesium 1.7, Troponin I High Sens 7604 H* 07/26/24 05:04: WBC 11.1 H, RBC 3.82 L, Hgb 12.1, Hct 35.6 L, MCV 93.2, MCH 31.7, MCHC 34.0, RDW Std Deviation 44.8 H, RDW Coeff of Sheryl 13.2, Plt Count 291, MPV 9.6, Immature Gran % (Auto) 0.500, Neut % (Auto) 77.1 H, Lymph % (Auto) 14.5 L, [place] % (Auto) 7.1, Eos % (Auto) 0.3, Baso % (Auto) 0.5, Absolute Neuts (auto) 8.6 H, Absolute Lymphs (auto) 1.61, Nucleated RBC % 0, Sodium 140, Potassium 3.3 L, Chloride 104, Carbon Dioxide 24.0, Anion Gap 12, BUN 24 H, Creatinine 0.93, Estim Creat Clear Calc 57.81, Est GFR (MDRD) Af Amer 77, Est GFR (MDRD) Non-Af 63, BUN/Creatinine Ratio 25.9 H, Glucose 115 H, Calcium 8.8, Phosphorus 3.8, Total Bilirubin 0.20, AST 65 H, ALT 29, Alkaline Phosphatase 81, Troponin I High Sens 75015 H*, Total Protein 6.1 L, Albumin 3.3, Globulin 2.8, Albumin/Globulin Ratio 1.2, Triglycerides 221 H, Cholesterol 250 H, LDL Cholesterol 141 H, VLDL Cholesterol 44 H, HDL Cholesterol 65 Rhythm Strip Rhythm Strip: Sinus Rhythm Cardiology Labs/Tests 07/25/24 20:32: WBC 10.1 07/25/24 20:32: WBC Cancelled, Corrected WBC Cancelled, RBC 4.32 07/25/24 20:32: RBC Cancelled, Hgb 13.6 07/25/24 20:32: Hgb Cancelled, Hct 40.9 07/25/24 20:32: Hct Cancelled, MCV 94.7 07/25/24 20:32: MCV Cancelled, MCH 31.5 07/25/24 20:32: MCH Cancelled, MCHC 33.3 07/25/24 20:32: MCHC Cancelled, Plt Count 315 07/25/24 20:32: Plt Count Cancelled, MPV 9.5 07/25/24 20:32: MPV Cancelled, Immature Gran % (Auto) 0.700 07/25/24 20:32: Immature Gran % (Auto) Cancelled, Neut % (Auto) 59.3 07/25/24 20:32: Neut % (Auto) Cancelled, Lymph % (Auto) 29.8 07/25/24 20:32: Lymph % (Auto) Cancelled, [place] % (Auto) 8.4 07/25/24 20:32: [place] % (Auto) Cancelled, Eos % (Auto) 1.3 07/25/24 20:32: Eos % (Auto) Cancelled, Baso % (Auto) 0.5 07/25/24 20:32: Baso % (Auto) Cancelled, Absolute Neuts (auto) 6.0 07/25/24 20:32: Absolute Neuts (auto) Cancelled, Total Counted Cancelled, Neutrophils % (Manual) Cancelled, Band Neutrophils % Cancelled, Lymphocytes % (Manual) Cancelled, Monocytes % (Manual) Cancelled, Eosinophils % (Manual) Cancelled, Basophils % (Manual) Cancelled, Metamyelocytes % Cancelled, Myelocytes % Cancelled, Promyelocytes % Cancelled, Blast Cells % Cancelled, Plasma Cell % (Manual) Cancelled, Other Cells % Cancelled, Nucleated RBC % 0 07/25/24 20:32: Nucleated RBC % Cancelled, PT 12.4, INR 0.9, APTT 26.6, Sodium 140, Potassium 3.5, Chloride 105, Carbon Dioxide 29.0, Anion Gap 6, BUN 21 H, Creatinine 1.12 H, Est GFR (MDRD) Af Amer 62, Est GFR (MDRD) Non-Af 51 L, BUN/Creatinine Ratio 18.8, Glucose 93, Calcium 9.4 07/25/24 20:50: Sodium Cancelled, Potassium Cancelled, Chloride Cancelled, Carbon Dioxide Cancelled, Anion Gap Cancelled, BUN Cancelled, Creatinine Cancelled, Est GFR (MDRD) Af Amer Cancelled, Est GFR (MDRD) Non-Af Cancelled, BUN/Creatinine Ratio Cancelled, Glucose Cancelled, Calcium Cancelled 07/25/24 23:21: Magnesium 1.7 07/26/24 05:04: WBC 11.1 H, RBC 3.82 L, Hgb 12.1, Hct 35.6 L, MCV 93.2, MCH 31.7, MCHC 34.0, Plt Count 291, MPV 9.6, Immature Gran % (Auto) 0.500, Neut % (Auto) 77.1 H, Lymph % (Auto) 14.5 L, [place] % (Auto) 7.1, Eos % (Auto) 0.3, Baso % (Auto) 0.5, Absolute Neuts (auto) 8.6 H, Nucleated RBC % 0, Sodium 140, Potassium 3.3 L, Chloride 104, Carbon Dioxide 24.0, Anion Gap 12, BUN 24 H, Creatinine 0.93, Est GFR (MDRD) Af Amer 77, Est GFR (MDRD) Non-Af 63, BUN/Creatinine Ratio 25.9 H, Glucose 115 H, Calcium 8.8, Phosphorus 3.8, Total Bilirubin 0.20, Triglycerides 221 H, Cholesterol 250 H, LDL Cholesterol 141 H, VLDL Cholesterol 44 H, HDL Cholesterol 65 Rhythm: EKG: ECHO: Stress Test: Cardiac Cath: PCI: CT Surgery: Holter monitor: EPS: PPM: CXR: Chest CT Scan: Radiography Diagnostic Testing: Radiology Impression Chest X-Ray 07/25/24 20:27 IMPRESSION: No radiographic evidence of acute cardiopulmonary disease Reading Location: [facility] Physical Exam Narrative Comfortable. No apparent distress. Heart sounds 1 and 2 noted. Chest clear to auscultation bilaterally. Alert oriented x 3. No ankle edema. Assessment & Plan Assessment/Plan (1) Acute ST elevation myocardial infarction (STEMI): PLAN: Status post JOHN to the LAD. Continue aspirin. Continue ticagrelor. (2) Coronary artery disease: PLAN: See #1 above. Aspirin, ticagrelor, beta-blockers, statins. 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 Beta-blockers, ACEI, spironolactone, SGLT2 inhibitors. (4) Hypertension: PLAN: Furosemide, carvedilol, ACEI, spironolactone. PLAN: Plan Possible discharge home tomorrow if continues to be stable.
[2024-07-26] MEDS: Potassium Chloride Oral Tablet 20 MEQ 40 MEQ PO (09:47)
--- NOTE | 2024-07-26 10:13 | PCM.PN.HOSP ---
Reason for Visit Reason for Visit: Diagnoses Essential (primary) hypertension (07/25/24) ST elevation (STEMI) myocardial infarction of unspecified site (07/25/24) Atherosclerotic heart disease of [place] coronary artery without angina pectoris (07/25/24) Other ill-defined heart diseases (07/25/24) Subjective Subjective Saw patient at bedside this morning. Patient was sitting up comfortably in bedside chair, conversing normally, in no acute distress. States chest pain has completely resolved this morning. Denies any other concerns this morning. Objective Data Objective Data Vital Signs: Vital Signs Temp Pulse Resp BP Pulse Ox O2 Del Method O2 Flow Rate 97.3 F L 65 18 123/81 H 97 Room Air 2 07/26/24 07:00 07/26/24 09:00 07/26/24 09:00 07/26/24 09:00 07/26/24 09:00 07/26/24 09:00 07/25/24 20:39 Oxygen Flow Rate (L/min) 2 Oxygen Delivery Method Room Air Weight: 87.5 kg Body Mass Index (BMI) 35.4 Intake & Output: Intake and Output for Last 24 Hours 07/24/24 07/25/24 07/26/24 23:59 23:59 23:59 Intake Total 1080.5 / 1080.5 Balance 1080.5 / 1080.5 Lab / Micro Data 07/26/24 05:04 07/26/24 05:04 Labs: Laboratory Results - last 24 hr 07/25/24 20:32: WBC 10.1 07/25/24 20:32: WBC Cancelled, Corrected WBC Cancelled, RBC 4.32 07/25/24 20:32: RBC Cancelled, Hgb 13.6 07/25/24 20:32: Hgb Cancelled, Hct 40.9 07/25/24 20:32: Hct Cancelled, MCV 94.7 07/25/24 20:32: MCV Cancelled, MCH 31.5 07/25/24 20:32: MCH Cancelled, MCHC 33.3 07/25/24 20:32: MCHC Cancelled, RDW Std Deviation 44.9 H 07/25/24 20:32: RDW Std Deviation Cancelled, RDW Coeff of Sheryl 13.0 07/25/24 20:32: RDW Coeff of Sheryl Cancelled, Plt Count 315 07/25/24 20:32: Plt Count Cancelled, MPV 9.5 07/25/24 20:32: MPV Cancelled, Immature Gran % (Auto) 0.700 07/25/24 20:32: Immature Gran % (Auto) Cancelled, Neut % (Auto) 59.3 07/25/24 20:32: Neut % (Auto) Cancelled, Lymph % (Auto) 29.8 07/25/24 20:32: Lymph % (Auto) Cancelled, Carbon % (Auto) 8.4 07/25/24 20:32: Carbon % (Auto) Cancelled, Eos % (Auto) 1.3 07/25/24 20:32: Eos % (Auto) Cancelled, Baso % (Auto) 0.5 07/25/24 20:32: Baso % (Auto) Cancelled, Absolute Neuts (auto) 6.0 07/25/24 20:32: Absolute Neuts (auto) Cancelled, Absolute Lymphs (auto) 3.00 07/25/24 20:32: Absolute Lymphs (auto) Cancelled, Total Counted Cancelled, Neutrophils % (Manual) Cancelled, Band Neutrophils % Cancelled, Lymphocytes % (Manual) Cancelled, Monocytes % (Manual) Cancelled, Eosinophils % (Manual) Cancelled, Basophils % (Manual) Cancelled, Metamyelocytes % Cancelled, Myelocytes % Cancelled, Promyelocytes % Cancelled, Blast Cells % Cancelled, Plasma Cell % (Manual) Cancelled, Other Cells % Cancelled, Nucleated RBC % 0 07/25/24 20:32: Nucleated RBC % Cancelled, Nucleated RBCs/100 WBC Cancelled, Differential Comment Cancelled, Diff Path Review Cancelled, Hypersegmented Neuts Cancelled, Atypical Lymphocytes Cancelled, Reactive Lymphocytes Cancelled, Smudge Cells Cancelled, Toxic Granulation Cancelled, Toxic Vacuolation Cancelled, Dohle Bodies Cancelled, Zachariah Rods Cancelled, Platelet Estimate Cancelled, Plt Morphology Comment Cancelled, RBC Morphology Cancelled 07/25/24 20:32: RBC Morphology Cancelled, Polychromasia Cancelled, Hypochromasia Cancelled, Basophilic Stippling Cancelled, Anisocytosis Cancelled, Microcytosis Cancelled, Macrocytosis Cancelled, Spherocytes Cancelled, Sickle Cells Cancelled, Target Cells Cancelled, Tear Drop Cells Cancelled, Ovalocytes Cancelled, Stomatocytes Cancelled, [place] Bodies Cancelled, Isaac Cells Cancelled, Bite Cells Cancelled, Crenated Cell Cancelled, Acanthocytes (Spur) Cancelled, Rouleaux Cancelled, Schistocytes Cancelled, PT 12.4, INR 0.9, APTT 26.6, Sodium 140, Potassium 3.5, Chloride 105, Carbon Dioxide 29.0, Anion Gap 6, BUN 21 H, Creatinine 1.12 H, Est GFR (MDRD) Af Amer 62, Est GFR (MDRD) Non-Af 51 L, BUN/Creatinine Ratio 18.8, Glucose 93, Calcium 9.4, Troponin I High Sens 1678 H* 07/25/24 20:50: Sodium Cancelled, Potassium Cancelled, Chloride Cancelled, Carbon Dioxide Cancelled, Anion Gap Cancelled, BUN Cancelled, Creatinine Cancelled, Estim Creat Clear Calc Cancelled, Est GFR (MDRD) Af Amer Cancelled, Est GFR (MDRD) Non-Af Cancelled, BUN/Creatinine Ratio Cancelled, Glucose Cancelled, Calcium Cancelled, Troponin I High Sens Cancelled 07/25/24 21:51: Activated Clotting Time 285 H 07/25/24 22:32: Activated Clotting Time 256 H 07/25/24 23:21: Magnesium 1.7, Troponin I High Sens 7604 H* 07/26/24 05:04: WBC 11.1 H, RBC 3.82 L, Hgb 12.1, Hct 35.6 L, MCV 93.2, MCH 31.7, MCHC 34.0, RDW Std Deviation 44.8 H, RDW Coeff of Sheryl 13.2, Plt Count 291, MPV 9.6, Immature Gran % (Auto) 0.500, Neut % (Auto) 77.1 H, Lymph % (Auto) 14.5 L, Carbon % (Auto) 7.1, Eos % (Auto) 0.3, Baso % (Auto) 0.5, Absolute Neuts (auto) 8.6 H, Absolute Lymphs (auto) 1.61, Nucleated RBC % 0, Sodium 140, Potassium 3.3 L, Chloride 104, Carbon Dioxide 24.0, Anion Gap 12, BUN 24 H, Creatinine 0.93, Estim Creat Clear Calc 57.81, Est GFR (MDRD) Af Amer 77, Est GFR (MDRD) Non-Af 63, BUN/Creatinine Ratio 25.9 H, Glucose 115 H, Calcium 8.8, Phosphorus 3.8, Total Bilirubin 0.20, AST 65 H, ALT 29, Alkaline Phosphatase 81, Troponin I High Sens 80051 H*, Total Protein 6.1 L, Albumin 3.3, Globulin 2.8, Albumin/Globulin Ratio 1.2, Triglycerides 221 H, Cholesterol 250 H, LDL Cholesterol 141 H, VLDL Cholesterol 44 H, HDL Cholesterol 65 Radiography Diagnostic Testing: Radiology Impression Chest X-Ray 07/25/24 20:27 IMPRESSION: No radiographic evidence of acute cardiopulmonary disease Reading Location: [facility] Rhythm Strip Rhythm Strip: Sinus Rhythm Physical Exam Const alert, oriented x3 and no apparent distress Constitutional Narrative: Elderly female, class I obesity, sitting up comfortably in bedside chair, conversing normally, in no acute distress. General Appearance: cooperative and comfortable HEENT normocephalic, head/scalp atraumatic, hearing grossly normal bilaterally, nasal mucous membranes and turbinates normal and moist oral mucous membranes Eyes PERRL, EOMs intact bilaterally and conjunctivae normal Neck full ROM Chest inspection of chest normal Resp normal respiratory effort, normal air movement, no use of accessory muscles and clear to auscultation bilaterally Cardio regular rate, regular rhythm, no murmurs and peripheral pulses 2+ throughout GI normal to inspection, nondistended, normoactive bowel sounds, soft to palpation, non-tender and non-distended Back/Spine normal ROM Extremity normal to inspection, full ROM and no pedal edema Skin no rashes or lesions noted Neuro moves all extremities and no focal motor deficits Speech: speech normal Motor Exam: strength 5/5 throughout Psych mental status grossly normal Assessment & Plan Assessment/Plan (1) STEMI (ST elevation myocardial infarction): (2) Severe left ventricular systolic dysfunction (LVSD): PLAN: Plan Patient is a 68-year-old female who presented to [facility] ED on 07/25/2024 with chest pain. 1. STEMI with new onset HFrEF due to ischemic cardiomyopathy ? Cardiology following. S/p left heart cath on 07/25 showed 100% mid LAD with thrombus, mild RCA and LCx disease. Had drug-eluting stent x 1 placed to mid LAD with good result. LV gram during cath showed EF 30%. Echo completed, read pending. Medical treatment with aspirin, Brilinta, high intensity statin, Coreg, empagliflozin, Lasix, lisinopril and spironolactone. Continue cardiac monitoring, no evidence of ectopy to this point. If remains stable, planning for discharge home tomorrow. 2. Mild hypokalemia ? Potassium 3.3 on 07/26. Mag and Phos normal. Replete as needed. 3. Hyperlipidemia ? Lipid profile on admit showed total cholesterol 250, LDL 141, HDL 65. Treated with high intensity statin as above. 4. Hypertension ? On home lisinopril and hydrochlorothiazide prior to admission. Continue treatment as above. 5. GERD ? Continue home PPI. 6. Class I obesity ? BMI 35 on admit. Encouraged lifestyle modifications. Complicates hospital course, care and prognosis. DVT prophylaxis: Lovenox CODE STATUS: Full code, verified Expected disposition: Home, 1 to 2 days Total clinical time spent by myself addressing the patient's medical issues, reviewing all the data, and collaborating with patient's care team: 35 minutes. Charges/Coding Visit Charges Inpatient E&M: 81803 Subs Hosp L2
--- NOTE | 2024-07-26 13:12 | CASEMGMT ---
ANA URENA Assessment Face to Face with patient for initial transition planning/care coordination assessment. ANA URENA introduced self and role at [facility], pt voices understanding. Pt is A&Ox4 and is resting comfortably in the chair and is calm. Care providers, pharmacy, and demographics verified. Admitting dx: Chest Pain LACE Strata: 1 PCP: Toribio Chapa Specialists: Travies. Dr. Mills is currently consulted [facility]erred Pharmacy: [facility] Insurance: [facility] Prescription Benefit: Yes LNOK: Akosua Morrissey (PRATIMA), Sraah Palacios (PRATIMA) Living Arrangements: Pt lives alone in a single story home with 3 steps to enter ADLs/IADLs: Ind Transportation: Self, daughters DME: Access to a cane, BP Machine, and pulse ox. 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 Follow for a new blood thinning Rx. Pt states that she feels safe returning home alone once she is medically ready and denies the need for OP tx or CCN. 6-Click score is 24. Pt denies further concerns at this time. Patsy Manley RN, CM
[2024-07-26] MEDS: hydrOXYzine 10 MG Tablet PO ×2 (15:24→20:17)
--- NOTE | 2024-07-26 15:39 | CHAPLAIN ---
Type of Pastoral Visit _x__ Initial Visit ___ Follow-up Visit ___ On-call Visit ___ General Patient Visit ___ Spiritual Assessment ___ Family Conference ___ Bereavement ___ Rapid Response ___ Code Blue ___ Other (describe below) Pastoral Care Referral From _x__ Patient ___ Family ___ Nurse ___ Physician ___ Nurse Staff ___ [facility]er ___ Other (describe below) Sacrament/Intervention _x__ Active listening ___ Anointing ___ Restoration ___ Bereavement ___ Communion _x__ Shira exploration ___ _x__ Life review _x__ Prayer ___ Reconciliation ___ Sacrament of Sick ___ Supportive presence ___ Wedding ___ Other (describe below) Pastoral Comments patient and daughter are in the room; 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
[2024-07-26] MEDS: Atorvastatin Calcium 80 MG Tablet PO (20:11)
[2024-07-26] MEDS: TICAGRELOR 90 MG TABLET PO (20:12)
[2024-07-26] MEDS: MELATONIN 3 MG TABLET PO (20:17)
[2024-07-27] VITALS: BP 134/85; PULSE 74; RESP 17; TEMP 37; O2SAT 92
[2024-07-27 05:00] VITALS: BP 132/85; PULSE 78; RESP 18; TEMP 36.2; O2SAT 96; BMI 34.9
[2024-07-27 07:47] LABS: Hematocrit 37.2 % (37-47); Hemoglobin 12.4 g/dL (12.0-15.0); Mean Corp Hgb Conc 33.3 g/dL (32-36); Mean Corpuscular Hgb 31.3 pg (27.0-32.0); Mean Corpuscular Volume 93.9 fL (81-99); Mean Platelet Vol. 9.9 fl (6.2-12.0); Platelet Count 285 K/mm3 (150-450); RBC Distribution Width CV 13.2 % (11.6-14.6); RBC Distribution Width SD 45.5 fl (35.1-43.9); Red Blood Count 3.96 M/mm3 (4.2-5.4); White Blood Count 8.4 K/mm3 (4.4-11.0)
[2024-07-27 08:27] LABS: Anion Gap 7 (5-15); BUN 17 mg/dL (7-18); BUN/Creat Ratio 20.6 RATIO (10-20); Calcium,Total 9.5 mg/dL (8.5-10.1); Chloride 106 mmol/L (98-107); Creatinine, Serum 0.82 mg/dL (0.55-1.02); EST Glomerular Filtration Rate 73 mL/min (>60); Est Glom Filt Rate - Afr Amer 88 mL/min (>60); Estimated Creatinine Clearance 65.04 ml/min; Glucose 95 mg/dL (74-106); Potassium 3.8 mmol/L (3.5-5.1); Sodium Level 138 mmol/L (136-145)
[2024-07-27 09:00] VITALS: BP 133/84; PULSE 66; RESP 16; TEMP 36.4; O2SAT 96
--- NOTE | 2024-07-27 09:08 | PCM.PN.CARD ---
Subjective Subjective Denies any complaints. No chest pain. No shortness of breath. Objective Data Vital Signs: Vital Signs Temp Pulse Resp BP Pulse Ox O2 Del Method O2 Flow Rate 97.2 F L 78 18 132/85 H 96 Room Air 2 07/27/24 05:00 07/27/24 05:00 07/27/24 05:00 07/27/24 05:00 07/27/24 05:00 07/27/24 05:00 07/25/24 20:39 Oxygen Flow Rate (L/min) 2 Oxygen Delivery Method Room Air Weight: 190 lb Body Mass Index (BMI) 34.9 Intake & Output: Intake and Output for Last 24 Hours 07/25/24 07/26/24 07/27/24 23:59 23:59 23:59 Intake Total 1080.5 / 1080.5 Balance 1080.5 / 1080.5 Lab / Micro Data 07/27/24 07:23 07/27/24 07:23 Labs: Laboratory Results - last 24 hr 07/27/24 07:23: WBC 8.4, RBC 3.96 L, Hgb 12.4, Hct 37.2, MCV 93.9, MCH 31.3, MCHC 33.3, RDW Std Deviation 45.5 H, RDW Coeff of Sheryl 13.2, Plt Count 285, MPV 9.9, Sodium 138, Potassium 3.8, Chloride 106, Carbon Dioxide 25.0, Anion Gap 7, BUN 17, Creatinine 0.82, Estim Creat Clear Calc 65.04, Est GFR (MDRD) Af Amer 88, Est GFR (MDRD) Non-Af 73, BUN/Creatinine Ratio 20.6 H, Glucose 95, Calcium 9.5 Rhythm Strip Rhythm Strip: Sinus Rhythm Cardiology Labs/Tests 07/27/24 07:23: WBC 8.4, RBC 3.96 L, Hgb 12.4, Hct 37.2, MCV 93.9, MCH 31.3, MCHC 33.3, Plt Count 285, MPV 9.9, Sodium 138, Potassium 3.8, Chloride 106, Carbon Dioxide 25.0, Anion Gap 7, BUN 17, Creatinine 0.82, Est GFR (MDRD) Af Amer 88, Est GFR (MDRD) Non-Af 73, BUN/Creatinine Ratio 20.6 H, Glucose 95, Calcium 9.5 Rhythm: EKG: ECHO: Stress Test: Cardiac Cath: PCI: CT Surgery: Holter monitor: EPS: PPM: CXR: Chest CT Scan: Radiography Diagnostic Testing: Radiology Impression Echocardiogram 07/25/24 22:59 Interpretation Summary Mild concentric left ventricular hypertrophy. Mid to distal septal, anterior and apical severe hypokinesis to akinesis. Estimated LVEF 30-35%. Stage I diastolic dysfunction. Ordering Physician: Humera Alexander Referring Physician: Toribio Chapa MD Performed By: Olivia Cabello RDCS Physical Exam Narrative Comfortable. No apparent distress. Heart sounds 1 and 2 noted. Chest clear to auscultation bilaterally. Alert oriented x 3. No ankle edema. Assessment & Plan Assessment/Plan (1) Acute ST elevation myocardial infarction (STEMI): PLAN: Status post JOHN to the LAD. Continue aspirin. Continue ticagrelor. (2) Coronary artery disease: PLAN: See #1 above. Aspirin, ticagrelor, beta-blockers, statins. 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 Beta-blockers, ACEI, spironolactone, SGLT2 inhibitors. (4) Hypertension: PLAN: Furosemide, carvedilol, ACEI, spironolactone. PLAN: Plan Okay to discharge home from a cardiology standpoint. Follow-up in the office in 2 to 4 weeks.
--- NOTE | 2024-07-27 09:30 | DS.PCM_ITS ---
Providers Date of Admission: 07/25/24 Date of Discharge: 07/27/24 Primary Care Physician: Dr. Toribio Chapa MD Consultations 07/25/24 22:59 Consult: Cardiology Routine Consulting Provider: Olivia Mills Reason for Consult: Chest Pain, STEMI EMERGENT Consult: Yes MD Notified: Yes Date Notified: 07/25/24 Time Notified: 21:33 Method of Notification: ED Physician Initiated Reason For Visit: chest pain Diagnosis Discharge Diagnosis (1) Acute ST elevation myocardial infarction (STEMI): Status: Acute Code(s): I21.3 - ST elevation (STEMI) myocardial infarction of unspecified site (2) Coronary artery disease: Status: Acute Code(s): I25.10 - Atherosclerotic heart disease of [place] coronary artery without angina pectoris (3) Severe left ventricular systolic dysfunction (LVSD): Status: Acute Code(s): I51.89 - Other ill-defined heart diseases (4) Hypertension: Status: Chronic Code(s): I10 - Essential (primary) hypertension Medications at Discharge Home Medications ascorbic acid (vitamin C) 1,000 mg capsule 1 g PO DAILY 05/13/23 [id number]-[id number] 250 mg-250 mg-65 mg tablet (Excedrin Migraine) 1 tab PO ONCE PRN migraine 05/13/23 cholecalciferol (vitamin D3) 25 mcg (1,000 unit) capsule 25 mcg PO DAILY 05/13/23 esomeprazole magnesium 20 mg capsule,delayed release (Nexium) 20 mg PO DAILY PRN acid reflux 05/13/23 vitamin B complex (B Complex-Vitamin B12 tablet) 1 tab PO DAILY 05/13/23 aspirin 81 mg tablet,delayed release 81 mg PO BREAKFAST 90 days #90 tabs 07/27/24 atorvastatin 80 mg tablet 80 mg PO QHS 90 days #90 tabs 07/27/24 carvedilol 3.125 mg tablet 3.125 mg PO BIDCM 30 days #60 tabs 07/27/24 empagliflozin 10 mg tablet (Jardiance) 10 mg PO DAILY 30 days #30 tabs 07/27/24 furosemide 40 mg tablet 40 mg PO DAILY 30 days #30 tabs 07/27/24 lisinopril 10 mg tablet 10 mg PO DAILY 30 days #30 tabs 07/27/24 spironolactone 25 mg tablet 12.5 mg (1/2 x 25 mg) PO DAILY 30 days #15 tabs 07/27/24 ticagrelor 90 mg tablet (Brilinta) 90 mg PO BID 90 days #180 tabs 07/27/24 Hospital Course Operations None Procedures Cardiac catheterization, EKG, Transthoracic echo and - (Chest x-ray) Summary of Care Provided Minutes Spent on Discharge: 35 Hospital Course: Patient is a 68-year-old female who presented to [facility] ED on 07/25/2024 with chest pain. Hospital course as noted below. Patient discharged home in stable condition on 07/27. 1. STEMI with new onset HFrEF due to ischemic cardiomyopathy ? Cardiology followed. S/p left heart cath on 07/25 showed 100% mid LAD with thrombus, mild RCA and LCx disease. Had drug-eluting stent x 1 placed to mid LAD with good result. LV gram during cath showed EF 30%. Echo with EF 30 to 35%, mild concentric LV hypertrophy with stage I diastolic dysfunction, mid to distal septal, anterior and apical severe hypokinesis to akinesis. Medical treatment with aspirin, Brilinta, high intensity statin, Coreg, empagliflozin, Lasix, lisinopril and spironolactone. No ectopy noted on cardiac monitoring while inpatient. Stable for discharge home on 07/27. 2. Mild hypokalemia ? Potassium 3.3 on 07/26. Mag and Phos normal. Repleted as needed. 3. Hyperlipidemia ? Lipid profile on admit showed total cholesterol 250, LDL 141, HDL 65. Treating with high intensity statin as above. 4. Hypertension ? On home lisinopril and hydrochlorothiazide prior to admission. Continue treatment as above on discharge. 5. GERD ? Continue home PPI. 6. Class I obesity ? BMI 35 on admit. Encouraged lifestyle modifications. Complicated hospital course, care and prognosis. Total clinical time spent by myself addressing the patient's medical issues, reviewing all the data, and collaborating with patient's care team: 35 minutes. Physical Exam Const alert, oriented x3 and no apparent distress Constitutional Narrative: Elderly female, class I obesity, sitting up comfortably in bedside chair, conversing normally, in no acute distress. General Appearance: cooperative and comfortable HEENT normocephalic, head/scalp atraumatic, hearing grossly normal bilaterally, nasal mucous membranes and turbinates normal and moist oral mucous membranes Eyes PERRL, EOMs intact bilaterally and conjunctivae normal Neck full ROM Chest inspection of chest normal Resp normal respiratory effort, normal air movement, no use of accessory muscles and clear to auscultation bilaterally Cardio regular rate, regular rhythm, no murmurs and peripheral pulses 2+ throughout GI normal to inspection, nondistended, normoactive bowel sounds, soft to palpation, non-tender and non-distended Back/Spine normal ROM Extremity normal to inspection, full ROM and no pedal edema Skin no rashes or lesions noted Neuro moves all extremities and no focal motor deficits Speech: speech normal Motor Exam: strength 5/5 throughout Psych mental status grossly normal Weight / BMI Weight Weight: 86.183 kg Body Mass Index (BMI) 34.9 ABG / Lab / Microbiology Data 07/27/24 07:23 07/27/24 07:23 Laboratory: Laboratory Results - last 24 hr 07/27/24 07:23: WBC 8.4, RBC 3.96 L, Hgb 12.4, Hct 37.2, MCV 93.9, MCH 31.3, MCHC 33.3, RDW Std Deviation 45.5 H, RDW Coeff of Sheryl 13.2, Plt Count 285, MPV 9.9, Sodium 138, Potassium 3.8, Chloride 106, Carbon Dioxide 25.0, Anion Gap 7, BUN 17, Creatinine 0.82, Estim Creat Clear Calc 65.04, Est GFR (MDRD) Af Amer 88, Est GFR (MDRD) Non-Af 73, BUN/Creatinine Ratio 20.6 H, Glucose 95, Calcium 9.5 Radiography Diagnostic Testing: Radiology Impression Echocardiogram 07/25/24 22:59 Interpretation Summary Mild concentric left ventricular hypertrophy. Mid to distal septal, anterior and apical severe hypokinesis to akinesis. Estimated LVEF 30-35%. Stage I diastolic dysfunction. Ordering Physician: Humera Alexander Referring Physician: Toribio Chapa MD Performed By: Olivia Cabello RDCS D/C Instructions DC O2, CPAP, BIPAP Needs Home O2 Discharge instructions: No Meaningful Use Info Meaningful Use Meaningful Use Diagnoses (Choose all that apply): AMI AMI/Post PCI/Angioplasty Aspirin given w/in 24hrs of arrival?: Yes ASA at discharge?: Yes Statins at discharge?: Yes Mat/ARB at discharge?: Yes Beta Burke at discharge?: Yes Done w/ Acute SC measure.: Yes Ischemic Stroke Statin Dosing Therapy Reference: STATIN DOSE THERAPY REFERENCE: * Patients > 75 years receive moderate or high dose statin therapy. * Patients 75 years or YOUNGER should receive HIGH intensity statin dose unless contraindicated. You will be required to document reason for non-treatment if statin daily dose does not meet guidelines. HIGH DOSE STATIN THERAPY DAILY Atorvastatin > than or = to 40 mg Rosuvastatin > than or = to 20 mg Amlodipine + Atorvastatin > than or = to 2.5/40 mg Ezetimibe + Simvastatin 10/80 mg Simvastatin 80mg Discharge Plan Admission Admit Date/Time: 07/25/24 21:32 Primary Reason for Your Visit: chest pain Attending Provider: Rashid Turpin Primary Care Provider: Toribio Chapa Consulting Providers: Olivia Mills Instructions Additional Instructions / Restrictions: Please start taking all new medications as prescribed below. Follow-up with cardiology in the office as directed. Discharge Orders/Prescriptions Prescriptions: New furosemide 40 mg Tablet 40 mg PO DAILY 30 Days Qty: 30 0RF atorvastatin 80 mg Tablet 80 mg PO QHS 90 Days Qty: 90 0RF aspirin 81 mg Tablet,Delayed Release (Dr/Ec) 81 mg PO BREAKFAST 90 Days Qty: 90 0RF spironolactone 25 mg Tablet 12.5 mg PO DAILY 30 Days Qty: 15 0RF carvedilol 3.125 mg Tablet 3.125 mg PO BIDCM 30 Days Qty: 60 0RF lisinopril 10 mg Tablet 10 mg PO DAILY 30 Days Qty: 30 0RF Brilinta 90 mg Tablet 90 mg PO BID 90 Days Qty: 180 0RF Jardiance 10 mg Tablet 10 mg PO DAILY 30 Days Qty: 30 0RF Continued vitamin B complex [B Complex-Vitamin B12] Tablet 1 tab PO DAILY Excedrin Migraine 250-250-65 mg tablet 1 tab PO ONCE PRN (Reason: migraine) esomeprazole magnesium [Nexium] 20 mg capsule,delayed release(DR/EC) 20 mg PO DAILY PRN (Reason: acid reflux) cholecalciferol (vitamin D3) 25 mcg (1,000 unit) capsule 25 mcg PO DAILY ascorbic acid (vitamin C) 1,000 mg capsule 1 g PO DAILY Discontinued lisinopril 40 mg tablet 40 mg PO DAILY meloxicam 15 mg tablet 15 mg PO DAILY PRN (Reason: pain) hydrochlorothiazide 25 mg tablet 25 mg PO DAILY Patient Comments: TAKE 1 TABLET BY MOUTH EVERY DAY (STOP 12.5MG DOSE) Referrals / Follow Up: Nahun Eden MD [Med Staff - Active Staff] - Toribio Chapa MD [Primary Care Provider] - Disposition Disposition (needs filled in before D/C Order can be placed): Home, Self Care Charges/Coding Visit Charges Inpatient E&M: 05164 Disch Hosp >30min
[2024-07-27 10:00] VITALS: BP 124/68; PULSE 77; RESP 16; TEMP 36.6; O2SAT 98
[2024-07-27] MEDS: Furosemide 40 MG Tablet PO (10:00)
[2024-07-27] MEDS: Lisinopril 10 MG Tablet PO (10:01)
[2024-07-27] MEDS: TICAGRELOR 90 MG TABLET PO (10:01)
[2024-07-27] MEDS: Spironolactone 25 MG Tablet 12.5 MG PO (10:01)
[2024-07-27] MEDS: Carvedilol 3.125 MG TABLET PO (10:01)
[2024-07-27] MEDS: Aspirin E.C. 81 MG Tablet PO (10:01)
[2024-07-27] MEDS: Empagliflozin 10 MG Tablet PO (10:02)
[2024-07-27] MEDS: Enoxaparin 40 MG/0.4 ML Syringe SC (10:02)
--- NOTE | 2024-07-27 10:03 | PHA.DC_ITS ---
Pharmacy [facility] Service has performed discharge medication reconciliation and counseling for this patient. The patient's discharge medication list was reviewed for discrepancies and discrepancies were resolved. The patient was counseled on the following discharge medications and changes in medications for homegoing were reviewed. 1. LIPITOR 2. BRILINTA/ ASPIRIN 3. COREG 4. LASIX 5. JARDIANCE 6. ALDACTONE 7. LISINOPRIL --> DECREASE DOSE TO 10MG PO DAILY 8. DISCONTINUE HCTZ The Reason for Use, instructions for use, and potential side effects were reviewed for all new medications. The patient's questions regarding all of their medications were answered. The patient was able to verbally demonstrate an understanding of their discharge medications. Medications at Discharge Home Medications ascorbic acid (vitamin C) 1,000 mg capsule 1 g PO DAILY 05/13/23 tquodif-swtbprbpgywjp-ohqvpbky 250 mg-250 mg-65 mg tablet (Excedrin Migraine) 1 tab PO ONCE PRN migraine 05/13/23 cholecalciferol (vitamin D3) 25 mcg (1,000 unit) capsule 25 mcg PO DAILY 05/13/23 esomeprazole magnesium 20 mg capsule,delayed release (Nexium) 20 mg PO DAILY PRN acid reflux 05/13/23 vitamin B complex (B Complex-Vitamin B12 tablet) 1 tab PO DAILY 05/13/23 aspirin 81 mg tablet,delayed release 81 mg PO BREAKFAST 90 days #90 tabs 07/27/24 atorvastatin 80 mg tablet 80 mg PO QHS 90 days #90 tabs 07/27/24 carvedilol 3.125 mg tablet 3.125 mg PO BIDCM 30 days #60 tabs 07/27/24 empagliflozin 10 mg tablet (Jardiance) 10 mg PO DAILY 30 days #30 tabs 07/27/24 furosemide 40 mg tablet 40 mg PO DAILY 30 days #30 tabs 07/27/24 lisinopril 10 mg tablet 10 mg PO DAILY 30 days #30 tabs 07/27/24 spironolactone 25 mg tablet 12.5 mg (1/2 x 25 mg) PO DAILY 30 days #15 tabs 07/27/24 ticagrelor 90 mg tablet (Brilinta) 90 mg PO BID 90 days #180 tabs 07/27/24
--- NOTE | 2024-07-27 11:17 | CASEMGMT ---
Pt has an order for DC placed. Pt has new Rx for Jardiance and Brilinta. TC to [facility] pharmacy in [place]. This RN AYANNA talked with Mohamud. Mohamud states that the pts other medications have a copay for 0$ e/f the Aspirin which is 4$. Mohamud states that the Jardiance does not require a PA and that the medication is 97$ after insurance. Mohamud also states that the Brilinta is 118$ after insurance. Mohamud reports that the pt is not eligible for a savings card d/t her specific insurance. Mohamud states that all of her medications are now ready for pickup. RN CM to pt room at this time. Pt RN at bedside. Pt states that these medications are affordable for her and denies further needs at this time and is ready for DC home today.
[2024-07-28 17:51] LABS: ACT Activated Clotting Time 187 sec (74-137)
== END 2024-07-27 11:37 | disposition home or self-care (01) | DRG 321 ==
LOC: ED 21:05 → ICU 21:07
PROVIDERS: Family Medicine; Admitting Provider Internal Medicine Cardiovascular Disease; Emergency Provider Emergency Medicine; PCP Family Medicine; Referring Provider Internal Medicine Cardiovascular Disease; Visit Provider Hospitalist
DX: I21.29 ST elevation (STEMI) myocardial infarction involving other sites (principal); I50.21 Acute systolic (congestive) heart failure; I13.0 Hypertensive heart and chronic kidney disease with heart failure and stage 1 through stage 4 chronic kidney disease, or unspecified chronic kidney disease; N18.30 Chronic kidney disease, stage 3 unspecified; E66.811 Obesity, class 1; I25.10 Atherosclerotic heart disease of native coronary artery without angina pectoris; K21.9 Gastro-esophageal reflux disease without esophagitis; E87.6 Hypokalemia; I25.5 Ischemic cardiomyopathy; E78.5 Hyperlipidemia, unspecified; Z68.35 Body mass index [BMI] 35.0-35.9, adult; Z79.02 Long term (current) use of antithrombotics/antiplatelets; Z79.82 Long term (current) use of aspirin; Z79.899 Other long term (current) drug therapy
CPT/HCPCS: 36415; 71045; 80048; 80053; 80061; 83735; 84100; 84484; 85025; 85027; 85347; 85610; 85730; 92928; 92941; 93005; 93306; 93458; 94762; 99152; 99153; 99283; C1874; Q9957; Q9967; A4216; C1725; C1769; C1887; C1894; C8929; C9600; C9606; J0153; J1327; J1940

== ENCOUNTER → 2024-09-06 | Outpatient (CLI) | payer MEDICARE, SELFPAY ==
[2024-09-06 13:23] LABS: Anion Gap 12 (5-15); BUN 20 mg/dL (4-19); BUN/Creat Ratio 17.2 RATIO (10-20); Calcium,Total 10.7 mg/dL (7.6-11.0); Carbon Dioxide 25.9 mmol/L (21.0-32.0); Chloride 100 mmol/L (98-108); Creatinine, Serum 1.17 mg/dL (0.70-1.20); EST Glomerular Filtration Rate 50 (>60); Glucose 103 mg/dL (70-99); Potassium 3.7 mmol/L (3.3-5.1); Sodium Level 139 mmol/L (133-145)
== END | disposition home or self-care (01) ==
LOC: LAB 10:22
PROVIDERS: PCP Family Medicine; Referring Provider Physician Assistant Medical; Visit Provider Physician Assistant Medical
DX: R42 Dizziness and giddiness (principal)
CPT/HCPCS: 36415; 80048

== ENCOUNTER → 2024-09-22 | Outpatient (CLI) | payer MEDICARE, SELFPAY ==
--- NOTE | 2024-09-22 12:43 | CDU_ITS ---
Reason For Study Reason For Study: Dizziness Rt. Velocities/BP Lt. Velocities/BP Prox CCA 82.5/9.7 cm/sec. Prox CCA 67.4/12.6 cm/sec. Mid CCA 62.6/10.7 cm/sec. Mid CCA 59.8/15.4 cm/sec. Dist CCA 51.3/11.6 cm/sec. Dist CCA 59.8/14.5 cm/sec. Prox ICA 34.4/10.9 cm/sec. Prox ICA 51.3/12.6 cm/sec. Mid ICA 58.6/18 cm/sec. Mid ICA 39.6/14.5 cm/sec. Dist ICA 62.8/16.6 cm/sec. Dist ICA 57.9/20.1 cm/sec. Rt. ICA/CCA = 1.00. Lt. ICA/CCA = 0.97. Prox ECA 45.1/5.5 cm/sec. Prox ECA 51.7/8.3 cm/sec. Rt. Vert. 32.9/8.7 cm/sec. Lt. Vert. 32.5/10.7 cm/sec. Right Extracranial There is homogeneous, smooth atherosclerotic plaque noted in the right common carotid artery. There is homogeneous, smooth atherosclerotic plaque noted in the right internal carotid artery. The right internal carotid artery is very tortuous. There is intimal thickening but no significant atherosclerotic plaque noted in the right external carotid artery. Antegrade flow is noted in the right vertebral artery. Left Extracranial There is homogeneous, smooth atherosclerotic plaque noted in the left common carotid artery. There is intimal thickening but no significant atherosclerotic plaque noted in the left internal carotid artery. There is intimal thickening but no significant atherosclerotic plaque noted in the left external carotid artery. Antegrade flow is noted in the left vertebral artery. Procedure Carotid Duplex 49208. This is a Carotid Duplex examination using B-mode, color flow and specral Doppler. Exam performed in department. VL/Carotid Duplex Ultrasound Interpretation Summary Mild (<50%) stenosis right extracranial internal carotid. No significant athero sclerotic plaque or stenosis noted in the left internal carotid artery. Flow within the vertebral arteries is antegrade b ilaterally. Ordering Physician: Aydee Ayon Referring Physician: Toribio Chapa MD Performed By: Kirsten Diaz RVT
== END | disposition home or self-care (01) ==
PROVIDERS: PCP Family Medicine; Referring Provider Physician Assistant Medical; Visit Provider Physician Assistant Medical
DX: R42 Dizziness and giddiness (principal)
CPT/HCPCS: 93880

== ENCOUNTER → 2024-10-03 | Outpatient (CLI) | payer MEDICARE, SELFPAY ==
[2024-10-03 11:56] LABS: ALB/GLOB Ratio 1.7 RATIO (0.9-2.4); AST(SGOT) 22 U/L (<=31); Alanine Aminotransfer ALT/SGPT 19 U/L (<=34); Albumin, Serum 4.3 g/dL (3.4-4.8); Alkaline Phosphatase 99 U/L (35-104); Anion Gap 11 (5-15); BUN 23 mg/dL (4-19); BUN/Creat Ratio 23.9 RATIO (10-20); Calcium,Total 9.6 mg/dL (7.6-11.0); Carbon Dioxide 21.4 mmol/L (21.0-32.0); Chloride 103 mmol/L (98-108); Cholesterol 143 mg/dL (<=200); Creatinine, Serum 0.96 mg/dL (0.70-1.20); EST Glomerular Filtration Rate 63 (>60); Globulin 2.6 g/dL (2.2-4.2); Glucose 106 mg/dL (70-99); High Density Lipoprotein 60 mg/dL; Low Density Lipoprotein Calc. 58 mg/dL; Potassium 4.3 mmol/L (3.3-5.1); Protein, Total 6.8 g/dL (5.9-8.4); Sodium Level 135 mmol/L (133-145); Total Bilirubin 0.34 mg/dL (0.00-1.30); Triglycerides 127 mg/dL; Very Low Density Lipoprotein 25 mg/dL (5-40)
== END | disposition home or self-care (01) ==
LOC: LAB 10:13
PROVIDERS: Referring Provider Physician Assistant Medical; Visit Provider Physician Assistant Medical
DX: E78.5 Hyperlipidemia, unspecified (principal); Z95.5 Presence of coronary angioplasty implant and graft
CPT/HCPCS: 36415; 80053; 80061

== ENCOUNTER → 2024-10-26 | Outpatient (CLI) | payer MEDICARE, SELFPAY ==
--- NOTE | 2024-10-26 13:39 | ECHOD_ITS ---
Reason For Study Reason For Study: CHF Procedure This was a 2D Doppler, Color Flow transthoracic echocardiogram. Exam performed in department. Left Ventricle Normal LV size. Mild concentric left ventricular hypertrophy. The LV systolic function is normal. EF is 65 %. Stage 1 diastolic dysfunction. Right Ventricle Normal right ventricle. Atria The left and right atria are normal. Mitral Valve Trivial mitral valve insufficiency. Tricuspid Valve Mild tricuspid valve insufficiency. Normal pulmonary artery pressure. Aortic Valve Trisinus/trileaflet aortic valve. Aortic sclerosis, no stenosis. Pulmonic Valve The pulmonic valve is not well visualized. Great Vessels Normal sized aortic root. Pericardium/Pleural No pericardial effusion. MMode/2D Measurements & Calculations LVIDd: 4.5 cm IVSd: 1.2 cm LVOT diam: 2.0 cm LVIDs: 2.9 cm LVPWd: 1.3 cm LVOT area: 3.2 cm2 RVDd: 3.0 cm FS: 37.0 % Ao root diam: 3.6 cm LAV(MOD-bp): 43.4 ml LVAd ap4: 25.1 cm2 LAV(MOD-bp) Indexed: 23.6 ml/m2 LVLd ap4: 7.6 cm LAV(MOD-sp2): 36.9 ml EDV(MOD-sp4): 69.3 ml LAV(MOD-sp4): 46.6 ml EDV(sp4-el): 70.4 ml LVAs ap4: 14.5 cm2 LVLs ap4: 6.7 cm ESV(MOD-sp4): 27.9 ml ESV(sp4-el): 27.0 ml EF(MOD-sp4): 59.7 % EF(sp4-el): 61.7 % SV(MOD-sp4): 41.4 ml SV(sp4-el): 43.4 ml LA A4 area: 16.7 cm2 SI(MOD-sp4): 22.5 ml/m2 LA dimension(2D): 4.0 cm RA A4 area: 10.7 cm2 Time Measurements MV dec time: 0.23 sec Doppler Measurements & Calculations MV E max yuniel: 56.7 cm/sec Lat Peak E' Yuniel: 8.5 cm/sec Med Peak E' Yuniel: 4.7 cm/sec MV A max yuniel: 61.0 cm/sec E/E' lat: 6.7 E/E' med: 12.0 MV E/A: 0.93 MV V2 max: 71.4 cm/sec Ao V2 max: 110.6 cm/sec MV max P.0 mmHg MV dec slope: 247.7 cm/sec2 Ao max P.9 mmHg MV V2 mean: 35.1 cm/sec Ao V2 mean: 73.9 cm/sec MV mean P.61 mmHg Ao mean P.5 mmHg MV V2 VTI: 27.0 cm Ao V2 VTI: 27.7 cm AV (velocity ratio): 0.91 MVA(VTI): 3.0 cm2 GABINO(I,D): 3.0 cm2 GABINO(V,D): 2.8 cm2 LV V1 max: 95.3 cm/sec SV(LVOT): 81.9 ml PA V2 max: 70.3 cm/sec LV V1 max P.6 mmHg PA V2 mean: 49.0 cm/sec LV V1 mean P.1 mmHg LV V1 mean: 67.2 cm/sec LV V1 VTI: 25.2 cm ECHO/Echo Complete Interpretation Summary Mild concentric left ventricular hypertrophy. The LV systolic function is normal. EF is 65 %. Stage 1 diastolic dysfunction. Mild tricuspid valve insufficiency. Aortic sclerosis, no stenosis. Ordering Physician: Aydee Ayon Referring Physician: Aydee Ayon Performed By: Babita Acosta RCS
== END | disposition home or self-care (01) ==
LOC: CVS 13:38
PROVIDERS: PCP Nurse Practitioner Family; Referring Provider Physician Assistant Medical; Visit Provider Physician Assistant Medical
DX: I51.89 Other ill-defined heart diseases (principal)
CPT/HCPCS: 93306

== ENCOUNTER → 2024-11-21 | Outpatient (CLI) | payer MEDICARE, SELFPAY ==
--- NOTE | 2024-11-21 09:41 | BI_ITS ---
EXAM: SCRN MAMM (CAD)W/RASHEED BILAT DATE: 11/21/2024 CLINICAL HISTORY: F, Age 68 y/o , SCREENING No family history. History of remote excisional breast biopsy. BREAST CANCER RISK ASSESSMENT: Not assessed. TECHNIQUE: Bilateral screening digital breast tomosynthesis with 2D and 3D images. Computer aided detection. COMPARISON: Prior exam(s) dated May 17, 2023.. FINDINGS: TISSUE DENSITY: The breast tissue is composed of scattered areas of fibroglandular density. Bilateral Breast Mammographic Findings: No significant masses, calcifications or other abnormalities are identified. No suspicious masses, areas of developing architectural distortion, or suspicious calcifications. There has been no significant interval change. BI/SCRN MAMM (CAD)W/RASHEED BILAT IMPRESSION: Stable examination. OVERALL FINAL ASSESSMENT BI-RADS 1: NEGATIVE. RECOMMEND ANNUAL MAMMOGRAPHIC SCREENING. RECOMMENDATION: Routine annual follow-up in 1 Year A letter with findings and recommendations will be mailed to the patient. Reading Location: [place] [id number]
--- NOTE | 2024-11-21 09:44 | BD_ITS ---
PROCEDURE: DEXA BONE DENSITY STUDY 11/21/2024 REASON FOR EXAM: F, age 68 y/o . Postmenopausal. TECHNIQUE: DEXA BONE DENSITY STUDY COMPARISON: Prior study dated April 21, 2022. FINDINGS: BMD and T-SCORES Lumbar spine: 0.761 g/cm2, T-score -2.3 Levels: L1 through L4 Change from prior: Improvement of 1.9%. Left femoral neck: 0.683 g/cm2, T-score -1.5 Femoral neck comparison data not recommended for monitoring change. Left total hip: 0.802 g/cm2, T-score -1.1 Change from prior: Loss of 12.2%. Right femoral neck: 0.709 g/cm2, T-score -1.3 Femoral neck comparison data not recommended for monitoring change. Right total hip: 0.822 g/cm2, T-score -1.0 Change from prior: Loss of 8.3%. The World Health Organization has defined the following categories based on bone density: Normal bone density: T-score equal to or greater than -1.0 Osteopenia: T-score between -1.0 and -2.5 Osteoporosis: T-score equal to or less than -2.5 The patient does meet the pharmacological treatment recommendations for prevention of osteoporosis. BD/Dexa Bone Density Study IMPRESSION: OSTEOPENIA. Recommend follow-up as clinically warranted. Reading Location: [place] [id number]
== END | disposition home or self-care (01) ==
PROVIDERS: PCP Nurse Practitioner Family; Referring Provider Nurse Practitioner Family; Visit Provider Nurse Practitioner Family
DX: Z13.820 Encounter for screening for osteoporosis (principal); Z78.0 Asymptomatic menopausal state; Z12.31 Encounter for screening mammogram for malignant neoplasm of breast
CPT/HCPCS: 77063; 77067; 77080

== ENCOUNTER → 2025-03-14 | Outpatient (CLI) | payer MEDICARE, SELFPAY ==
[2025-03-14 09:29] LABS: AST(SGOT) 34 U/L (<=31); Alanine Aminotransfer ALT/SGPT 37 U/L (<=34); Albumin, Serum 4.3 g/dL (3.4-4.8); Alkaline Phosphatase 128 U/L (35-104); Bilirubin, Direct 0.18 mg/dL (0.00-0.30); Globulin 2.7 g/dL (2.2-4.2)
[2025-03-14 09:30] LABS: AST(SGOT) 32 U/L (<=31); Alanine Aminotransfer ALT/SGPT 39 U/L (<=34); Albumin, Serum 4.3 g/dL (3.4-4.8); Alkaline Phosphatase 128 U/L (35-104); Anion Gap 12 (5-15); BUN 21 mg/dL (4-19); BUN/Creat Ratio 21.1 RATIO (10-20); CPK Total, Creatine Kinase 182 U/L (24-195); Calcium,Total 10.0 mg/dL (7.6-11.0); Carbon Dioxide 21.9 mmol/L (21.0-32.0); Chloride 105 mmol/L (98-108); Cholesterol 144 mg/dL (<=200); Globulin 2.7 g/dL (2.2-4.2); Glucose 101 mg/dL (70-99); Low Density Lipoprotein Calc. 49 mg/dL; Potassium 4.4 mmol/L (3.3-5.1); Triglycerides 111 mg/dL; Very Low Density Lipoprotein 22 mg/dL (5-40); cholesterol:hdl ratio screen 1.99
== END | disposition home or self-care (01) ==
LOC: LAB 08:42
PROVIDERS: Physician Assistant Medical; PCP Nurse Practitioner Family; Referring Provider Internal Medicine Cardiovascular Disease; Visit Provider Internal Medicine Cardiovascular Disease
DX: I25.10 Atherosclerotic heart disease of native coronary artery without angina pectoris (principal); I25.5 Ischemic cardiomyopathy; I10 Essential (primary) hypertension; E78.00 Pure hypercholesterolemia, unspecified; Z95.5 Presence of coronary angioplasty implant and graft
CPT/HCPCS: 36415; 80053; 80061; 80076; 82550

== ENCOUNTER → 2025-04-10 | Outpatient (CLI) | payer MEDICARE, SELFPAY ==
[2025-04-10 10:06] LABS: Cholesterol 147 mg/dL (<=200); Low Density Lipoprotein Calc. 51 mg/dL; Triglycerides 158 mg/dL; Very Low Density Lipoprotein 32 mg/dL (5-40); cholesterol:hdl ratio screen 2.11
[2025-04-10 10:17] LABS: Uric Acid 5.0 mg/dL (2.6-6.0); Vitamin D,25 Hydroxy 31.8 ng/mL (30-100)
== END | disposition home or self-care (01) ==
LOC: LAB 08:08
PROVIDERS: PCP Nurse Practitioner Family; Referring Provider Physician Assistant Medical; Visit Provider Physician Assistant Medical
DX: M25.561 Pain in right knee (principal); E78.5 Hyperlipidemia, unspecified
CPT/HCPCS: 36415; 80061; 82306; 84550